=== PATIENT | male | born 1970 | race Caucasian/White ===

== ENCOUNTER 2022-08-10 07:59 | Inpatient (IN) ==
[2022-08-10] MEDS ORDERED: STAT IV Infusion **Titration per Protocol STA ×2 (08:14→09:21)
[2022-08-10] MEDS ORDERED: SODIUM CHLORIDE 0.9% 1000ML 1,000 ML IV ONE (08:14)
[2022-08-10] MEDS ORDERED: dilTIAZem HCl 5 MG/ML 5 ML VIAL IV STA (08:14)
[2022-08-10] MEDS ORDERED: dilTIAZem HCL 125 MG in DEXTROSE 5% 100 ML IV SCH (08:15)
[2022-08-10] MEDS ORDERED: OPTIRAY 320 500ml IV ONE (08:28)
--- NOTE | 2022-08-10 08:29 | Emergency Department Note ---
Impression & Plan Altered mental status, Unresponsive state, Leukocytosis, Atrial fibrillation with rapid ventricular response ED Provider Note NAME: SEAN [id number] APRIL AGE: 52 SEX: M : 1970 ARRIVES VIA: Ambulance INFORMANT: [EMS, guards, nursing] ED PROVIDER(S): [Rufino Dong MD] CHIEF COMPLAINT: Unresponsive HISTORY OF PRESENT ILLNESS: Patient is a 52-year-old male who was found unresponsive in his cell at the local [facility]. By report, he went to bed last evening without difficulty. He has a history of bipolar disease and COPD. As per EMS, the patient had a lower blood pressure on their assessment, he had minimal response to pain or stimulation. No trauma reported. A stroke alert was not called as the patient was found this way this morning--no true last known well could be identified. PMHx/PSHx: See Below SOCIAL HISTORY: See Below. PHYSICAL EXAM: GENERAL: Patient is in moderate distress, upper extremity tremor noted. HEENT: No acute trauma, normocephalic atraumatic, mucous membranes moist, no nasal congestion. Pupils equal and reactive to light. His gaze is to the left. NECK: No stridor, no adenopathy, trachea is midline. LUNGS: Clear to auscultation bilaterally, no wheeze, no rhonchi, breath sounds equal. HEART: Tachycardic and irregular, no obvious murmur. ABDOMEN: Soft, nontender, bowel sounds positive, no peritonitis. EXTREMITIES: No cyanosis or edema, full range of motion of all the joints without pain or difficulty, no signs for acute trauma. NEUROLOGIC: Gazes to the left. There is some upper extremity tremor noted. Arms are flexed at the elbows. Does not respond to voice. When the upper extremity flexion and shaking ceased, he seemed to show some decorticate posturing to sternal rub. SKIN: No rash, no jaundice, no diaphoresis. DIFFERENTIAL DIAGNOSIS: Stroke, intracranial bleeding, seizure, infection, dysrhythmia, renal or liver failure, drug abuse, among others. EMERGENCY DEPARTMENT COURSE/PROCEDURES: Prior/Outside records reviewed: [facility] notes. ECG per my interpretation: Indication was unresponsive episode. The ECG shows a rapid atrial fibrillation with a rate of 143. There is some subtle ST depression in the anterior and lateral leads. There is no ST elevation. No PVCs. The QTc is 527. Repeat ECG per my interpretation: Indication was tachycardia. The ECG shows a normal sinus rhythm with a rate of 94. There is some nonspecific ST change. There is no ST elevation. No PVCs. The QTc is 452. Compared to the earlier ECG, the rate has decreased, A-fib is no longer present. Continuous Cardiac Monitoring per my interpretation: An order was placed for continuous cardiac monitoring. The monitor shows a rate of 152 with atrial fibrillation. Critical Care Note: I have personally spent 65 minutes of critical care time in the direct management of this patient. This includes bedside care, interpretation of diagnostic studies, and testing, discussion with consultants, patient, and family members, and other required patient management activities. This 65 minutes is in excess of all separately billable procedures. Intubation: This procedure was performed by mt. Patient received 20 mg of etomidate IV, 80 mg of rocuronium IV. The patient was hyper oxygenated. Using rapid technique, the patient was intubated with a Escamilla two blade. Some suction was required. No complication. The endotracheal tube was placed at 24 centimeters at the the lips. Good O2 saturation noted afterwards. Good CO2 color change. Breath sounds equal bilaterally. Post intubation chest x-ray demonstrated the tube to be slightly high. It was advanced 1 cm to 25 cm. Central Line placement: This procedure was performed at mt. The area for the procedure was cleansed sterilely and prepared for the procedure. Lidocaine was used for anesthesia. Sterile technique was employed. Using the Seldinger technique, I was able to cannulate the femoral vein. No significant complications. The right femoral artery was punctured during this procedure but pressure was held and no excessive bleeding or hematoma noted afterwards. All ports did flush well. The line was then sutured into position. MEDICAL DECISION MAKING: There is a mild leukocytosis, this could be consistent with infection or the stress of his current situation. There was a normal hemoglobin and platelet count. No coagulopathy. ABG showed a mild respiratory acidosis with a pH of 7.3. This ABG was done after intubation. No renal failure or significant electrolyte abnormality. Lactic acid level was not not elevated making severe sepsis less likely. No concerning liver enzyme elevation. Procalcitonin level was not not elevated making serious bacterial infection less likely. The patient appeared to be in a euthyroid state. ECG initially showed a rapid atrial fibrillation, repeat ECG showed a normal sinus rhythm. Cardiac enzyme testing x1 is not suggestive of acute cardiac injury. Prolactin level was elevated consistent with potential seizure activity. Urinalysis did not show infection. COVID test returned negative. C[place] level was not toxic. Chest film did not show pneumonia or CHF per my review. The endotracheal tube was slightly high within the trachea. The endotracheal tube was advanced to [address] showed no acute bleed or mass effect. CT angio of the head and neck did not show any stenosis or clot. On my initial exam, the patient had some flexion of his upper extremities and some upper extremity shaking with a left-sided gaze. His presentation was consistent with potential seizure activity. The patient received a total of 4 g of IV Keppra. He was given a liter of IV saline. He received IV ceftriaxone as empiric antibiotic coverage. He was placed on a diltiazem drip for his rapid atrial fibrillation. This drip was discontinued when he converted to a sinus rhythm. Patient was eventually placed on a propofol drip to help with sedation. As noted above, the patient did require intubation. This was performed without difficulty. A right femoral central line was placed. All 3 ports flushed well. I did speak with the ICU attending, Dr. Delgadillo. We discussed the case. The patient was accepted to the ICU. I did speak with Dr. Allan of neurology. The patient is able to stay at our facility. Transfer to tertiary care is not currently necessary. I spoke with case management, I did speak with the on-call hospitalist. At this point, the cause for the patient's sudden decline and altered mental state is not completely clear. I am concerned about potential seizure activity. Further work-up/care within the hospital is required. DISPOSITION: Patient's presentation and findings warrant a hospital stay. Past Med/Surg History Medical History Bipolar 1 disorder COPD (chronic obstructive pulmonary disease) Social History Smoking Status: Unknown if ever smoked Allergies Allergies Allergy/AdvReac Type Severity Reaction Status Date / Time No Known Allergies Allergy Unverified 08/10/22 16:35 Home Meds Home Medications Medication Instructions Recorded Confirmed Wixela Inhub 1 puff inhalation BID 08/10/22 08/10/22 albuterol 90 mcg/actuation aerosol 2 mcg inhalation Q4H PRN Wheezing 08/10/22 08/10/22 inhaler buspirone 10 mg PO BID 08/10/22 08/10/22 lithium carbonate 450 mg PO BID 08/10/22 08/10/22 risperidone 4 mg PO HS 08/10/22 08/10/22 Results & Data (ED) Vital Signs Vital Signs - 24 hr 08/10/22 08:10 08/10/22 07:51 08/10/22 08:48 Pulse Rate 130 H 142 H 115 H Pulse Rate from SpO2 Sensor Pulse Rhythm Irregular Pulse Strength Normal Respiratory Rate 22 Respiratory Effort / Characteristics Gasping/Agonal Blood Pressure 125/89 Blood Pressure Mean 101 Blood Pressure Position Lying Pulse Oximetry 96 Oxygen Delivery Method Nasal Cannula Oxygen Flow Rate 4 Fraction of Inspired Oxygen Sepsis Recent Fever Within 48 Hours No Sepsis New/Unexplained Change in Mental Status N/A Sepsis Action Taken by Nursing No Action Required End-Tidal CO2 08/10/22 08:10 08/10/22 09:36 08/10/22 08:15 Pulse Rate 141 H 170 H Pulse Rate from SpO2 Sensor Pulse Rhythm Pulse Strength Respiratory Rate 18 18 Respiratory Effort / Characteristics Blood Pressure 137/100 Blood Pressure Mean 112 Blood Pressure Position Pulse Oximetry 96 91 90 Oxygen Delivery Method Mechanical Vent Oxygen Flow Rate Fraction of Inspired Oxygen 50 Sepsis Recent Fever Within 48 Hours Sepsis New/Unexplained Change in Mental Status Sepsis Action Taken by Nursing End-Tidal CO2 43 08/10/22 08:45 08/10/22 09:10 08/10/22 09:15 Pulse Rate 117 H 111 H 113 H Pulse Rate from SpO2 Sensor 114 H 112 H 113 H Pulse Rhythm Pulse Strength Respiratory Rate 18 20 21 Respiratory Effort / Characteristics Blood Pressure 151/83 H 150/102 H 151/95 H Blood Pressure Mean 105 118 113 Blood Pressure Position Pulse Oximetry 90 95 96 Oxygen Delivery Method Oxygen Flow Rate Fraction of Inspired Oxygen Sepsis Recent Fever Within 48 Hours Sepsis New/Unexplained Change in Mental Status Sepsis Action Taken by Nursing End-Tidal CO2 43 13 46 08/10/22 09:30 08/10/22 09:45 08/10/22 10:00 Pulse Rate 103 H 96 H 93 H Pulse Rate from SpO2 Sensor 107 H 93 H 94 H Pulse Rhythm Pulse Strength Respiratory Rate 26 H 22 23 Respiratory Effort / Characteristics Blood Pressure 117/74 110/78 113/74 Blood Pressure Mean 88 88 87 Blood Pressure Position Pulse Oximetry 91 97 96 Oxygen Delivery Method Oxygen Flow Rate Fraction of Inspired Oxygen Sepsis Recent Fever Within 48 Hours Sepsis New/Unexplained Change in Mental Status Sepsis Action Taken by Nursing End-Tidal CO2 33 34 33 08/10/22 10:15 08/10/22 10:30 08/10/22 10:40 Pulse Rate 93 H 88 85 Pulse Rate from SpO2 Sensor 94 H 88 86 Pulse Rhythm Pulse Strength Respiratory Rate 19 25 H 25 H Respiratory Effort / Characteristics Blood Pressure 105/70 107/69 100/67 Blood Pressure Mean 81 81 78 Blood Pressure Position Pulse Oximetry 97 98 98 Oxygen Delivery Method Oxygen Flow Rate Fraction of Inspired Oxygen Sepsis Recent Fever Within 48 Hours Sepsis New/Unexplained Change in Mental Status Sepsis Action Taken by Nursing End-Tidal CO2 33 32 34 Home Medications Current Medication List: was personally reviewed by me Laboratory Data Attestation: I reviewed the patient's lab results. 08/10/22 09:16 08/10/22 09:16 Lab Results 08/10/22 08/10/22 08/10/22 Range/Units 09:00 09:00 09:00 WBC (4.8-10.8) K/ul RBC (4.70-6.10) M/uL Hgb (14.0-18.0) g/dl POC Hgb (14.0-18.0) g/dl Hct (42.0-52.0) % POC Hct (42-52) % MCV (80.0-100.0) fL MCH (25.0-34.0) pg MCHC (32.0-36.0) g/dL RDW Std Deviation (36.4-46.3) fL RDW Coeff of Franco (11.5-14.5) % Plt Count (130-400) K/uL MPV (9.4-12.4) fL Immature Gran % (Auto) % Neut % (Auto) % Lymph % (Auto) % Cedar % (Auto) % Eos % (Auto) % Baso % (Auto) % Neut # (Auto) (1.40-6.50) K/uL Lymph # (Auto) (1.2-3.4) K/uL Cedar # (Auto) (0.11-0.59) K/uL Eos # (Auto) (0-0.50) K/uL Baso # (Auto) (0-0.2) K/uL Immature Gran # (Auto) (0.01-0.20) K/uL ESR (0-20) mm/hr PT (9.0-12.0) Seconds INR (0.9-1.1) APTT (21.0-31.0) Seconds PTT Ratio POC pH (7.35-7.45) POC pCO2 (35-46) mmHg POC pO2 (80-95) mmHg POC HCO3 (19-24) galilea/L POC Total CO2 (24-31) mmol/L POC Base Excess (-9-1.8) galilea/L POC ABG O2 Sat (90-95) % POC Sodium (135-144) mmol/L Sodium (136-145) mmol/L POC Potassium (3.3-5.0) mmol/L Potassium (3.5-5.1) mmol/L Chloride (98-107) mmol/L Carbon Dioxide (21-32) mmol/L Anion Gap (3-11) BUN (6-23) mg/dl Creatinine (0.6-1.4) mg/dl Est Cr Clr Drug Dosing ml/min Est GFR ( Amer) ml/min Est GFR (Non-Af Amer) ml/min BUN/Creatinine Ratio (10-20) Glucose (70-99(Fasting)) mg/dl Lactate (0.4-2.0) mmol/L Calcium (8.6-10.3) mg/dl Magnesium (1.7-2.4) mg/dl Total Bilirubin (0.2-1.0) mg/dl AST (13-39) U/L ALT (7-52) U/L Alkaline Phosphatase (34-104) U/L Troponin I High Sens (0-20) pg/ml C-Reactive Protein (0-0.5) mg/dl Total Protein (6.0-8.3) gm/dl Albumin (3.4-5.0) gm/dl Globulin (2.5-4.0) gm/dl Albumin/Globulin Ratio (0.9-2) Procalcitonin (0-0.5) ng/ml TSH (0.300-4.500) uIu/ml Prolactin ng/ml Urine Color Yellow Urine Appearance Clear (Clear) Urine pH 6.5 (4.5-7.5) Ur Specific Crawley 1.009 (1.000-1.030) Urine Protein Negative (Negative) Urine Glucose (UA) Negative (Negative) Urine Ketones Negative (Negative) Urine Blood Negative (Negative) Urine Nitrite Negative (Negative) Urine Bilirubin Negative (Negative) Urine Urobilinogen Negative (Negative) Ur Leukocyte Esterase Negative (Negative) Urine Opiates Screen Neg (Neg) Ur Methadone, Qual Neg (Neg) Urine Barbiturates Neg (Neg) Ur Phencyclidine (PCP) Neg (Neg) U Amphetamin/Meth Scrn Neg (Neg) MDMA (Ecstasy) Screen Neg (Neg) U Benzodiazepines Scrn Neg (Neg) [place] (0.6-1.2) mmol/L Ur Cocaine Metabolite Neg (Neg) U Marijuana (THC) Screen Neg (Neg) SARS-CoV-2, RNA, NAAT NEGATIVE (NEGATIVE) Blood Type Antibody Screen 08/10/22 08/10/22 08/10/22 Range/Units 09:14 09:16 09:16 WBC 14.50 H (4.8-10.8) K/ul RBC 4.24 L (4.70-6.10) M/uL Hgb 14.1 (14.0-18.0) g/dl POC Hgb 13.3 L (14.0-18.0) g/dl Hct 39.3 L (42.0-52.0) % POC Hct 39 L (42-52) % MCV 92.7 (80.0-100.0) fL MCH 33.3 (25.0-34.0) pg MCHC 35.9 (32.0-36.0) g/dL RDW Std Deviation 40.5 (36.4-46.3) fL RDW Coeff of Franco 11.9 (11.5-14.5) % Plt Count 239 (130-400) K/uL MPV 8.0 L (9.4-12.4) fL Immature Gran % (Auto) 0.3 % Neut % (Auto) 89.0 % Lymph % (Auto) 4.2 % Cedar % (Auto) 6.3 % Eos % (Auto) 0.0 % Baso % (Auto) 0.2 % Neut # (Auto) 12.90 H (1.40-6.50) K/uL Lymph # (Auto) 0.61 L (1.2-3.4) K/uL Cedar # (Auto) 0.91 H (0.11-0.59) K/uL Eos # (Auto) 0.00 (0-0.50) K/uL Baso # (Auto) 0.03 (0-0.2) K/uL Immature Gran # (Auto) 0.05 (0.01-0.20) K/uL ESR (0-20) mm/hr PT (9.0-12.0) Seconds INR (0.9-1.1) APTT (21.0-31.0) Seconds PTT Ratio POC pH 7.30 L (7.35-7.45) POC pCO2 49 H (35-46) mmHg POC pO2 77 L (80-95) mmHg POC HCO3 24 (19-24) galilea/L POC Total CO2 25 (24-31) mmol/L POC Base Excess -2.0 (-9-1.8) galilea/L POC ABG O2 Sat 94.0 (90-95) % POC Sodium 138 (135-144) mmol/L Sodium (136-145) mmol/L POC Potassium 3.9 (3.3-5.0) mmol/L Potassium (3.5-5.1) mmol/L Chloride (98-107) mmol/L Carbon Dioxide (21-32) mmol/L Anion Gap (3-11) BUN (6-23) mg/dl Creatinine (0.6-1.4) mg/dl Est Cr Clr Drug Dosing ml/min Est GFR ( Amer) ml/min Est GFR (Non-Af Amer) ml/min BUN/Creatinine Ratio (10-20) Glucose (70-99(Fasting)) mg/dl Lactate (0.4-2.0) mmol/L Calcium (8.6-10.3) mg/dl Magnesium (1.7-2.4) mg/dl Total Bilirubin (0.2-1.0) mg/dl AST (13-39) U/L ALT (7-52) U/L Alkaline Phosphatase (34-104) U/L Troponin I High Sens (0-20) pg/ml C-Reactive Protein (0-0.5) mg/dl Total Protein (6.0-8.3) gm/dl Albumin (3.4-5.0) gm/dl Globulin (2.5-4.0) gm/dl Albumin/Globulin Ratio (0.9-2) Procalcitonin (0-0.5) ng/ml TSH (0.300-4.500) uIu/ml Prolactin ng/ml Urine Color Urine Appearance (Clear) Urine pH (4.5-7.5) Ur Specific Crawley (1.000-1.030) Urine Protein (Negative) Urine Glucose (UA) (Negative) Urine Ketones (Negative) Urine Blood (Negative) Urine Nitrite (Negative) Urine Bilirubin (Negative) Urine Urobilinogen (Negative) Ur Leukocyte Esterase (Negative) Urine Opiates Screen (Neg) Ur Methadone, Qual (Neg) Urine Barbiturates (Neg) Ur Phencyclidine (PCP) (Neg) U Amphetamin/Meth Scrn (Neg) MDMA (Ecstasy) Screen (Neg) U Benzodiazepines Scrn (Neg) [place] (0.6-1.2) mmol/L Ur Cocaine Metabolite (Neg) U Marijuana (THC) Screen (Neg) SARS-CoV-2, RNA, NAAT (NEGATIVE) Blood Type B Positive Antibody Screen NEGATIVE 08/10/22 08/10/22 08/10/22 Range/Units 09:16 09:16 09:16 WBC (4.8-10.8) K/ul RBC (4.70-6.10) M/uL Hgb (14.0-18.0) g/dl POC Hgb (14.0-18.0) g/dl Hct (42.0-52.0) % POC Hct (42-52) % MCV (80.0-100.0) fL MCH (25.0-34.0) pg MCHC (32.0-36.0) g/dL RDW Std Deviation (36.4-46.3) fL RDW Coeff of Franco (11.5-14.5) % Plt Count (130-400) K/uL MPV (9.4-12.4) fL Immature Gran % (Auto) % Neut % (Auto) % Lymph % (Auto) % Cedar % (Auto) % Eos % (Auto) % Baso % (Auto) % Neut # (Auto) (1.40-6.50) K/uL Lymph # (Auto) (1.2-3.4) K/uL Cedar # (Auto) (0.11-0.59) K/uL Eos # (Auto) (0-0.50) K/uL Baso # (Auto) (0-0.2) K/uL Immature Gran # (Auto) (0.01-0.20) K/uL ESR (0-20) mm/hr PT 11.6 (9.0-12.0) Seconds INR 1.1 (0.9-1.1) APTT 25.3 (21.0-31.0) Seconds PTT Ratio 0.9 POC pH (7.35-7.45) POC pCO2 (35-46) mmHg POC pO2 (80-95) mmHg POC HCO3 (19-24) galilea/L POC Total CO2 (24-31) mmol/L POC Base Excess (-9-1.8) galilea/L POC ABG O2 Sat (90-95) % POC Sodium (135-144) mmol/L Sodium 137 (136-145) mmol/L POC Potassium (3.3-5.0) mmol/L Potassium 4.0 (3.5-5.1) mmol/L Chloride 108 H (98-107) mmol/L Carbon Dioxide 22 (21-32) mmol/L Anion Gap 7 (3-11) BUN 12 (6-23) mg/dl Creatinine 0.73 (0.6-1.4) mg/dl Est Cr Clr Drug Dosing 114.5 ml/min Est GFR ( Amer) 123.6 ml/min Est GFR (Non-Af Amer) 106.6 ml/min BUN/Creatinine Ratio 16.4 (10-20) Glucose 153 H (70-99(Fasting)) mg/dl Lactate (0.4-2.0) mmol/L Calcium 8.1 L (8.6-10.3) mg/dl Magnesium 1.8 (1.7-2.4) mg/dl Total Bilirubin 1.0 (0.2-1.0) mg/dl AST 15 (13-39) U/L ALT 12 (7-52) U/L Alkaline Phosphatase 79 (34-104) U/L Troponin I High Sens < 2.3 (0-20) pg/ml C-Reactive Protein 1.06 H (0-0.5) mg/dl Total Protein 6.6 (6.0-8.3) gm/dl Albumin 3.9 (3.4-5.0) gm/dl Globulin 2.7 (2.5-4.0) gm/dl Albumin/Globulin Ratio 1.4 (0.9-2) Procalcitonin (0-0.5) ng/ml TSH (0.300-4.500) uIu/ml Prolactin 30.04 ng/ml Urine Color Urine Appearance (Clear) Urine pH (4.5-7.5) Ur Specific Crawley (1.000-1.030) Urine Protein (Negative) Urine Glucose (UA) (Negative) Urine Ketones (Negative) Urine Blood (Negative) Urine Nitrite (Negative) Urine Bilirubin (Negative) Urine Urobilinogen (Negative) Ur Leukocyte Esterase (Negative) Urine Opiates Screen (Neg) Ur Methadone, Qual (Neg) Urine Barbiturates (Neg) Ur Phencyclidine (PCP) (Neg) U Amphetamin/Meth Scrn (Neg) MDMA (Ecstasy) Screen (Neg) U Benzodiazepines Scrn (Neg) [place] (0.6-1.2) mmol/L Ur Cocaine Metabolite (Neg) U Marijuana (THC) Screen (Neg) SARS-CoV-2, RNA, NAAT (NEGATIVE) Blood Type Antibody Screen 08/10/22 08/10/22 08/10/22 Range/Units 09:16 09:16 09:16 WBC (4.8-10.8) K/ul RBC (4.70-6.10) M/uL Hgb (14.0-18.0) g/dl POC Hgb (14.0-18.0) g/dl Hct (42.0-52.0) % POC Hct (42-52) % MCV (80.0-100.0) fL MCH (25.0-34.0) pg MCHC (32.0-36.0) g/dL RDW Std Deviation (36.4-46.3) fL RDW Coeff of Franco (11.5-14.5) % Plt Count (130-400) K/uL MPV (9.4-12.4) fL Immature Gran % (Auto) % Neut % (Auto) % Lymph % (Auto) % Cedar % (Auto) % Eos % (Auto) % Baso % (Auto) % Neut # (Auto) (1.40-6.50) K/uL Lymph # (Auto) (1.2-3.4) K/uL Cedar # (Auto) (0.11-0.59) K/uL Eos # (Auto) (0-0.50) K/uL Baso # (Auto) (0-0.2) K/uL Immature Gran # (Auto) (0.01-0.20) K/uL ESR 12 (0-20) mm/hr PT (9.0-12.0) Seconds INR (0.9-1.1) APTT (21.0-31.0) Seconds PTT Ratio POC pH (7.35-7.45) POC pCO2 (35-46) mmHg POC pO2 (80-95) mmHg POC HCO3 (19-24) galilea/L POC Total CO2 (24-31) mmol/L POC Base Excess (-9-1.8) galilea/L POC ABG O2 Sat (90-95) % POC Sodium (135-144) mmol/L Sodium (136-145) mmol/L POC Potassium (3.3-5.0) mmol/L Potassium (3.5-5.1) mmol/L Chloride (98-107) mmol/L Carbon Dioxide (21-32) mmol/L Anion Gap (3-11) BUN (6-23) mg/dl Creatinine (0.6-1.4) mg/dl Est Cr Clr Drug Dosing ml/min Est GFR ( Amer) ml/min Est GFR (Non-Af Amer) ml/min BUN/Creatinine Ratio (10-20) Glucose (70-99(Fasting)) mg/dl Lactate (0.4-2.0) mmol/L Calcium (8.6-10.3) mg/dl Magnesium (1.7-2.4) mg/dl Total Bilirubin (0.2-1.0) mg/dl AST (13-39) U/L ALT (7-52) U/L Alkaline Phosphatase (34-104) U/L Troponin I High Sens (0-20) pg/ml C-Reactive Protein (0-0.5) mg/dl Total Protein (6.0-8.3) gm/dl Albumin (3.4-5.0) gm/dl Globulin (2.5-4.0) gm/dl Albumin/Globulin Ratio (0.9-2) Procalcitonin < 0.05 (0-0.5) ng/ml TSH 1.096 (0.300-4.500) uIu/ml Prolactin ng/ml Urine Color Urine Appearance (Clear) Urine pH (4.5-7.5) Ur Specific Crawley (1.000-1.030) Urine Protein (Negative) Urine Glucose (UA) (Negative) Urine Ketones (Negative) Urine Blood (Negative) Urine Nitrite (Negative) Urine Bilirubin (Negative) Urine Urobilinogen (Negative) Ur Leukocyte Esterase (Negative) Urine Opiates Screen (Neg) Ur Methadone, Qual (Neg) Urine Barbiturates (Neg) Ur Phencyclidine (PCP) (Neg) U Amphetamin/Meth Scrn (Neg) MDMA (Ecstasy) Screen (Neg) U Benzodiazepines Scrn (Neg) [place] (0.6-1.2) mmol/L Ur Cocaine Metabolite (Neg) U Marijuana (THC) Screen (Neg) SARS-CoV-2, RNA, NAAT (NEGATIVE) Blood Type Antibody Screen 08/10/22 08/10/22 Range/Units 09:17 09:43 WBC (4.8-10.8) K/ul RBC (4.70-6.10) M/uL Hgb (14.0-18.0) g/dl POC Hgb (14.0-18.0) g/dl Hct (42.0-52.0) % POC Hct (42-52) % MCV (80.0-100.0) fL MCH (25.0-34.0) pg MCHC (32.0-36.0) g/dL RDW Std Deviation (36.4-46.3) fL RDW Coeff of Franco (11.5-14.5) % Plt Count (130-400) K/uL MPV (9.4-12.4) fL Immature Gran % (Auto) % Neut % (Auto) % Lymph % (Auto) % Cedar % (Auto) % Eos % (Auto) % Baso % (Auto) % Neut # (Auto) (1.40-6.50) K/uL Lymph # (Auto) (1.2-3.4) K/uL Cedar # (Auto) (0.11-0.59) K/uL Eos # (Auto) (0-0.50) K/uL Baso # (Auto) (0-0.2) K/uL Immature Gran # (Auto) (0.01-0.20) K/uL ESR (0-20) mm/hr PT (9.0-12.0) Seconds INR (0.9-1.1) APTT (21.0-31.0) Seconds PTT Ratio POC pH (7.35-7.45) POC pCO2 (35-46) mmHg POC pO2 (80-95) mmHg POC HCO3 (19-24) galilea/L POC Total CO2 (24-31) mmol/L POC Base Excess (-9-1.8) galilea/L POC ABG O2 Sat (90-95) % POC Sodium (135-144) mmol/L Sodium (136-145) mmol/L POC Potassium (3.3-5.0) mmol/L Potassium (3.5-5.1) mmol/L Chloride (98-107) mmol/L Carbon Dioxide (21-32) mmol/L Anion Gap (3-11) BUN (6-23) mg/dl Creatinine (0.6-1.4) mg/dl Est Cr Clr Drug Dosing ml/min Est GFR ( Amer) ml/min Est GFR (Non-Af Amer) ml/min BUN/Creatinine Ratio (10-20) Glucose (70-99(Fasting)) mg/dl Lactate 1.2 (0.4-2.0) mmol/L Calcium (8.6-10.3) mg/dl Magnesium (1.7-2.4) mg/dl Total Bilirubin (0.2-1.0) mg/dl AST (13-39) U/L ALT (7-52) U/L Alkaline Phosphatase (34-104) U/L Troponin I High Sens (0-20) pg/ml C-Reactive Protein (0-0.5) mg/dl Total Protein (6.0-8.3) gm/dl Albumin (3.4-5.0) gm/dl Globulin (2.5-4.0) gm/dl Albumin/Globulin Ratio (0.9-2) Procalcitonin (0-0.5) ng/ml TSH (0.300-4.500) uIu/ml Prolactin ng/ml Urine Color Urine Appearance (Clear) Urine pH (4.5-7.5) Ur Specific Crawley (1.000-1.030) Urine Protein (Negative) Urine Glucose (UA) (Negative) Urine Ketones (Negative) Urine Blood (Negative) Urine Nitrite (Negative) Urine Bilirubin (Negative) Urine Urobilinogen (Negative) Ur Leukocyte Esterase (Negative) Urine Opiates Screen (Neg) Ur Methadone, Qual (Neg) Urine Barbiturates (Neg) Ur Phencyclidine (PCP) (Neg) U Amphetamin/Meth Scrn (Neg) MDMA (Ecstasy) Screen (Neg) U Benzodiazepines Scrn (Neg) [place] 0.4 L (0.6-1.2) mmol/L Ur Cocaine Metabolite (Neg) U Marijuana (THC) Screen (Neg) SARS-CoV-2, RNA, NAAT (NEGATIVE) Blood Type Antibody Screen Administered Medications Propofol (Diprivan) 1,000 mg in 100 mls @ 10.428 mls/hr IV .[id number] [facility]; Protocol Stop: 08/13/22 09:29 Last Admin: 08/10/22 16:32 Dose: 20 mcg/kg/min, 10.4 mls/hr Documented By: NONI Co-signed By: [id number] Titration: 08/10/22 16:32 Dose: 20 mcg/kg/min, 10.4 mls/hr Documented By: NONI Co-signed By: [id number] Titration: 08/10/22 14:49 Dose: 20 mcg/kg/min, 10.4 mls/hr Documented By: [id number] Titration: 08/10/22 10:09 Dose: 25 mcg/kg/min, 13 mls/hr Documented By: Admin: 08/10/22 09:29 Dose: 20 mcg/kg/min, 10.4 mls/hr Documented By: JACQUELIN Co-signed By: FELTON Discontinued Medications Diltiazem HCl (Diltiazem Hcl 5 Mg/Ml 5 Ml Vial) 10 mg IV NOW STA Stop: 08/10/22 08:15 Last Admin: 08/10/22 09:29 Dose: Not Given Documented By: JACQUELIN Levetiracetam 2,000 mg/ Sodium (Chloride) 270 mls @ 999 mls/hr IV NOW STA Stop: 08/10/22 08:30 Last Infusion: 08/10/22 09:31 Dose: 0 mls/hr Documented By: Admin: 08/10/22 09:07 Dose: 999 mls/hr Documented By: FELTON Sodium Chloride (Nss 1000ml) 1,000 mls @ 999 mls/hr IV .Q1H1M ONE Stop: 08/10/22 09:14 Last Infusion: 08/10/22 11:20 Dose: 0 mls/hr Documented By: Admin: 08/10/22 09:31 Dose: 999 mls/hr Documented By: JACQUELIN Diltiazem HCl 125 mg/ Dextrose 125 mls @ 5 mls/hr IV .Q24H NIMISHA; Protocol Stop: 09/09/22 08:14 Last Titration: 08/10/22 10:30 Dose: 0 mg/hr, 0 mls/hr Documented By: JACQUELIN Co-signed By: KANG Admin: 08/10/22 09:07 Dose: 5 mg/hr, 5 mls/hr Documented By: FELTON Co-signed By: JACQUELIN Levetiracetam 2,000 mg/ Sodium (Chloride) 270 mls @ 999 mls/hr IV NOW STA Stop: 08/10/22 10:01 Last Infusion: 08/10/22 11:20 Dose: 0 mls/hr Documented By: Admin: 08/10/22 10:28 Dose: 999 mls/hr Documented By: JACQUELIN Ceftriaxone Sodium (Rocephin) 2,000 mg in 70 mls @ 140 mls/hr IV NOW STA Stop: 08/10/22 10:17 Last Infusion: 08/10/22 13:31 Dose: 0 mls/hr Documented By: [id number] Admin: 08/10/22 11:18 Dose: 140 mls/hr Documented By: JACQUELIN Ioversol (Optiray 320 500ml) 120 ml IV ONCE ONE Stop: 08/10/22 08:29 Last Admin: 08/10/22 08:28 Dose: 120 ml Documented By: ISIDORO Miscellaneous (Stat Iv Infusion Titration Per Protocol) 1 each N/A NOW STA Stop: 08/10/22 08:15 Last Admin: 08/10/22 13:31 Dose: Not Given Documented By: [id number] Miscellaneous (Icu Protocol For Hyperglycemia) 1 each N/A ACHS NIMISHA Stop: 08/12/22 12:13 Last Admin: 08/10/22 14:51 Dose: Not Given Documented By: [id number] Propofol (Propofol Iv Emulsion 10 Mg/Ml 100 Ml Vial) Confirm Administered Dose 1 ,000 mg IV .STK-MED ONE Stop: 08/10/22 09:16 Last Admin: 08/10/22 09:31 Dose: Not Given Documented By: JACQUELIN Propofol (Propofol Bolus From Bag) 50 mg IV ONE ONE Stop: 08/10/22 09:31 Last Admin: 08/10/22 09:30 Dose: 50 mg Documented By: JACQUELIN Co-signed By: FELTON Imaging Data Radiologist's Impression: Head CT 08/10/22 07:55 CT angio head w con, CT head/brain wo con, CT angio neck with con CLINICAL HISTORY: neuro deficit, acute stroke suspected TECHNIQUE: Contiguous axial CT images of the head were acquired from the base of the skull to the vertex without intravenous contrast administration. CT angiography of the head and neck was performed following intravenous administration of iodinated contrast. Coronal and sagittal MIPS were obtained from the axial data set and were submitted for review. Automated dose lowering techniques and/or adjustment according to patient size were utilized for this examination. All measurements were calculated based on NASCET criteria. CT DOSE: 1161.11 mGy.cm Comparison: None available at the time of this dictation. FINDINGS: CT head: There is no acute intracranial hemorrhage or evidence of acute territorial infarction. No shift of the midline structures, mass effect, or extra-axial abnormalities are shown. Extensive emphysema is seen. CTA Neck: A 3 vessel aortic arch is shown. There is no significant ath erosclerotic plaque in the aortic arch or the origins of the innominate, left common carotid, and left subclavian arteries. The common carotid, external carotid, cervical segments of the internal carotid arteries, and the cervical segments of the vertebral arteries are patent without hemodynamically significant stenosis. The left vertebral artery is dominant. CTA Head: The anterior and posterior cerebral circulations are patent. origin of the right posterior cerebral artery is seen. IMPRESSION: 1. No acute intracranial hemorrhage, evidence of acute territorial infarction, or other acute intracranial disease process. 2. No occlusion, hemodynamically significant stenosis, or dissection in the major cervical arteries. 3. No occlusion, hemodynamically significant stenosis, aneurysm, dissection, or arteriovenous malformation in the major intracranial arteries. Assessment of stenosis of the internal carotid arteries is based on NASCET criteria. ACT 112: Negative or not required by law. Electronically signed by: Jarred Bob M.D. 08/10/2022 8:51 AM Head CTA 08/10/22 07:55 CT angio head w con, CT head/brain wo con, CT angio neck with con CLINICAL HISTORY: neuro deficit, acute stroke suspected TECHNIQUE: Contiguous axial CT images of the head were acquired from the base of the skull to the vertex without intravenous contrast administration. CT angio graphy of the head and neck was performed following intravenous administration of iodinated contrast. Coronal and sagittal MIPS were obtained from the axial data set and were submitted for review. Automated dose lowering techniques and/or adjustment according to patient size were utilized for this examination. All measurements were calculated based on NASCET criteria. CT DOSE: 1161.11 mGy.cm Comparison: None available at the time of this dictation. FINDINGS: CT head: There is no acute intracranial hemorrhage or evidence of acute territorial infarction. No shift of the midline structures, mass effect, or extra-axial abnormalities are shown. Extensive emphysema is seen. CTA Neck: A 3 vessel aortic arch is shown. There is no significant atherosclerotic plaque in the aortic arch or the origins of the innominate, left common carotid, and left subclavian arteries. The common carotid, external carotid, cervical segments of the internal carotid arteries, and the cervical segments of the vertebral arteries are patent without hemodynamically significant stenosis. The left vertebral artery is dominant. CTA Head: The anterior and posterior cerebral circulations are patent. origin of the right posterior cerebral artery is seen. IMPRESSION: 1. No acute intracranial hemorrhage, evidence of acute territorial infarction, or other acute intracranial disease process. 2. No occlusion, hemodynamically significant stenosis, or dissection in the major cervical arteries. 3. No occlusion, hemodynamically significant stenosis, aneurysm, dissection, or arteriovenous malformation in the major intracranial arteries. Assessment of stenosis of the internal carotid arteries is based on NASCET criteria. ACT 112: Negative or not required by law. Electronically signed by: Jarred Bob M.D. 08/10/2022 8:51 AM Neck CTA 08/10/22 07:55 CT angio head w con, CT head/brain wo con, CT angio neck with con CLINICAL HISTORY: neuro deficit, acute stroke suspected TECHNIQUE: Contiguous axial CT images of the head were acquired from the base of the skull to the vertex without intravenous contrast administration. CT angiography of the head and neck was performed following intravenous administration of iodinated contrast. Coronal and sagittal MIPS were obtained from the axial data set and were submitted for review. Automated dose lowering techniques and/or adjustment according to patient size were utilized for this examination. All measurements were calculated based on NASCET criteria. CT DOSE: 1161.11 mGy.cm Comparison: None available at the time of this dictation. FINDINGS: CT head: There is no acute intracranial hemorrhage or evidence of acute territorial infarction. No shift of the midline structures, mass effect, or extra-axial abnormalities are shown. Extensive emphysema is seen. CTA Neck: A 3 vessel aortic arch is shown. There is no significant atherosclerotic plaque in the aortic arch or the origins of the innominate, left common carotid, and left subclavian arteries. The common carotid, external carotid, cervical segments of the internal carotid arteries, and the cervical segments of the vertebral arteries are patent without hemodynamically significant stenosis. The left vertebral artery is dominant. CTA Head: The anterior and posterior cerebral circulations are patent. origin of the right posterior cerebral artery is seen. IMPRESSION: 1. No acute intracranial hemorrhage, evidence of acute territorial infarction, or other acute intracranial disease process. 2. No occlusion, hemodynamically significant stenosis, or dissection in the major cervical arteries. 3. No occlusion, hemodynamically significant stenosis, aneurysm, dissection, or arteriovenous malformation in the major intracranial arteries. Assessment of stenosis of the internal carotid arteries is based on NASCET criteria. ACT 112: Negative or not required by law. Electronically signed by: Jarred Bob M.D. 08/10/2022 8:51 AM Chest X-Ray 08/10/22 08:19 XR chest 1V portable CLINICAL HISTORY: post intub TECHNIQUE: Single frontal radiograph of the chest was obtained. Comparison: None available at the time of this dictation. FINDINGS: Endotracheal tube terminates 44 mm of the cordelia. The cardiomediastinal silhouette is normal. The lungs are clear. No evidence of pleural effusion or pneumothorax. IMPRESSION: Satisfactory position of endotracheal tube. ACT 112: Negative or not required by law. Electronically signed by: Jarred Bob M.D. 08/10/2022 8:33 AM Discharge Plan Visit Data Chief Complaint: Unresponsive Stated Complaint: STROKE SX, HYPOTENSION ED Provider: Rufino Dong Discharge Problem: Altered mental status, Unresponsive state, Leukocytosis, Atrial fibrillation with rapid ventricular response Patient Disposition: Admitted As Inpatient Condition: Serious Discharge Instructions Interventions: ED Discharge Assessment Last Done: 08/10/22 11:35
--- NOTE | 2022-08-10 08:34 | XRay Report ---
XR chest 1V portable CLINICAL HISTORY: post intub TECHNIQUE: Single frontal radiograph of the chest was obtained. Comparison: None available at the time of this dictation. FINDINGS: Endotracheal tube terminates 44 mm of the cordelia. The cardiomediastinal silhouette is normal. The opal gs are clear. No evidence of pleural effusion or pneumothorax. IMPRESSION: Satisfactory position of endotracheal tube. ACT 112: Negative or not required by law. Electronically signed by: Jarred Bob M.D. 08/10/2022 8:33 AM
--- NOTE | 2022-08-10 08:53 | CT Scan Report ---
CT angio head w con, CT head/brain wo con, CT angio neck with con CLINICAL HISTORY: neuro deficit, acute stroke suspected TECHNIQUE: Contiguous axial CT images of the head were acquired from the base of the skull to the michael milton without intravenous contrast administration. CT angiography of the head and neck was performed f ollowing intravenous administration of iodinated contrast. Coronal and sagittal MIPS were obtained fr om the axial data set and were submitted for review. Automated dose lowering techniques and/or adjus tment according to patient size were utilized for this examination. All measurements were calculated based on NASCET criteria. CT DOSE: 1161.11 mGy.cm Comparison: None available at the time of this dictation. FINDINGS: CT head: There is no acute intracranial hemorrhage or evidence of acute territorial infarction. No sh ift of the midline structures, mass effect, or extra-axial abnormalities are shown. Extensive emphysema is seen. CTA Neck: A 3 vessel aortic arch is shown. There is no significant atherosclerotic plaque in the aor tic arch or the origins of the innominate, left common carotid, and left subclavian arteries. The co mmon carotid, external carotid, cervical segments of the internal carotid arteries, and the cervical segments of the vertebral arteries are patent without hemodynamically significant stenosis. The left vertebral artery is dominant. CTA Head: The anterior and posterior cerebral circulations are patent. origin of the right pos terior cerebral artery is seen. IMPRESSION: 1. No acute intracranial hemorrhage, evidence of acute territorial infarction, or other acute intrac ranial disease process. 2. No occlusion, hemodynamically significant stenosis, or dissection in the major cervical arteries. 3. No occlusion, hemodynamically significant stenosis, aneurysm, dissection, or arteriovenous malfor mation in the major intracranial arteries. Assessment of stenosis of the internal carotid arteries is based on NASCET criteria. ACT 112: Negative or not required by law. Electronically signed by: Jarred Bob M.D. 08/10/2022 8:51 AM
[2022-08-10] MEDS ORDERED: PROPOFOL IV EMULSION 10 MG/ML 100 ML VIAL IV ONE (09:15)
[2022-08-10 09:29] LABS: iSTAT Arterial Blood Gas HCO3 24 meg/L (19-24); iSTAT Arterial Blood Gas pCO2 49 mmHg (35-46); iSTAT Arterial Blood Gas pO2 77 mmHg (80-95); iSTAT Carbon Dioxide 25 mmol/L (24-31); iSTAT Hematocrit 39 % (42-52); iSTAT Hemoglobin 13.3 g/dl (14.0-18.0); iSTAT Potassium 3.9 mmol/L (3.3-5.0); iSTAT Sodium 138 mmol/L (135-144)
[2022-08-10] MEDS: propofoL 1,000 MG/100 ML VIAL IV SCH ×2 (09:29→16:32)
[2022-08-10] MEDS ORDERED: PROPOFOL BOLUS FROM BAG IV ONE (09:30)
[2022-08-10 09:36] LABS: Basophils # (auto) 0.03 K/uL (0-0.2); Basophils % (auto) 0.2 %; Hematocrit (blood only) 39.3 % (42.0-52.0); Hemoglobin 14.1 g/dl (14.0-18.0); Immature Granulocytes # (auto) 0.05 K/uL (0.01-0.20); Immature Granulocytes % (auto) 0.3 %; Lymphocytes # (auto) 0.61 K/uL (1.2-3.4); Lymphocytes % (auto) 4.2 %; Mean Corpuscular Hemoglobin 33.3 pg (25.0-34.0); Mean Corpuscular Hgb Conc 35.9 g/dL (32.0-36.0); Mean Corpuscular Volume 92.7 fL (80.0-100.0); Monocytes # (auto) 0.91 K/uL (0.11-0.59); Monocytes % (auto) 6.3 %; Platelet Count 239 K/uL (130-400); RDW Coefficient of Variation 11.9 % (11.5-14.5); RDW Standard Deviation 40.5 fL (36.4-46.3); Red Blood Count 4.24 M/uL (4.70-6.10)
[2022-08-10 09:47] LABS: Alanine Aminotransferase 12 U/L (7-52); Albumin Globulin Ratio 1.4 (0.9-2); Albumin Level 3.9 gm/dl (3.4-5.0); Alkaline Phosphatase 79 U/L (34-104); Anion Gap 7 (3-11); Aspartate Aminotransferase 15 U/L (13-39); BUN Creatinine Ratio 16.4 (10-20); Blood Urea Nitrogen 12 mg/dl (6-23); Calcium 8.1 mg/dl (8.6-10.3); Carbon Dioxide 22 mmol/L (21-32); Chloride 108 mmol/L (98-107); Creatinine Clr Calc Pharmacy 114.5 ml/min; Est GFR (African American) 123.6 ml/min; Est GFR (Non-African American) 106.6 ml/min; Globulin 2.7 gm/dl (2.5-4.0); Glucose 153 mg/dl (70-99(Fasting)); Magnesium 1.8 mg/dl (1.7-2.4); Sodium 137 mmol/L (136-145); Total Protein 6.6 gm/dl (6.0-8.3)
[2022-08-10 09:48] LABS: Appearance Urine Clear (Clear); Bilirubin Urine Negative (Negative); Blood Urine Negative (Negative); Color Urine Yellow; Glucose Urine UA Negative (Negative); Ketones Urine Negative (Negative); Leukocyte Esterase Urine Negative (Negative); Nitrite Urine Negative (Negative); Protein Urine Negative (Negative); Specific Gravity Urine 1.009 (1.000-1.030); Urobilinogen Urine Negative (Negative); pH Urine 6.5 (4.5-7.5)
[2022-08-10] MEDS ORDERED: cefTRIAXone SODIUM 2,000 MG/70 ML BAG IV STA (09:48)
[2022-08-10 09:53] LABS: Troponin I High Sensitivity < 2.3 pg/ml (0-20)
[2022-08-10 10:07] LABS: Amphetamines+Metham, Urine Neg (Neg); Barbiturates, Urine Neg (Neg); Benzodiazepine, Urine Neg (Neg); Cocaine, Urine Neg (Neg); MDMA (Ecstacy), Urine Neg (Neg); Methadone, Urine Neg (Neg); Opiate, Urine Neg (Neg); Phencyclidine, Urine Neg (Neg)
[2022-08-10 10:10] LABS: INR 1.1 (0.9-1.1); Partial Thromboplastin Ratio 0.9; Partial Thromboplastin Time 25.3 Seconds (21.0-31.0); Prothrombin Time 11.6 Seconds (9.0-12.0)
--- NOTE | 2022-08-10 10:34 | History & Physical Report ---
Date of Service August 10, 2022 Assessment & Plan (1) Unresponsive state: Plan: -Admit to the ICU -Currently stable on mechanical Vent -Initially hypotensive on arrival with systolic BP in the 80's and in afib RVR with HR in the 140-160's -Differential is broad at this time including possible stroke, seizure, STRIP CLEANER infection, drug overdose, other form of suicide attempt, infection -Seizure-like activity reported by EMS and ED staff on arrival, no previous hx of seizures per transfer documentation from [facility] -Patient with a leukocytosis of 14 with left shift of 12, no obvious source of infection at this time on exam or labs -Patient was noted to be in new onset afib RVR, unsure how long he was in afib for so embolic stroke is higher on the differential -Prolactin elevated in the 30's, seizure is also high on the differential -UA and tox screen negative, blood cultures obtained, patient S/P 1 dose of Ceftriaxone -Neurology consulted and will evaluate, EEG ordered -Will obtain STAT MRI of the brain wo con and TTE for further evaluation -ICU staff will be performing an LP -Will obtain ESR and CRP for further evaluation -Will defer further abx and IV fluids to the ICU staff at this time -BL SCD's for DVT PPX until MRI is obtained, will hold chemical DVT PPX for now -S/P loading dose of Keppra in the ED for possible seizures, will defer to Neurology for further treatment -AM CBC, CMP, Mag, PT/INR (2) On mechanically assisted ventilation: Plan: -Patient intubated in the ED due to unresponsive state and inability to protect his airway -Continue intubation status for now until the rest of his workup is complete (3) Atrial fibrillation with RVR: Plan: -Patient was noted to be in afib RVR with HR in the 140's-160's on arrival and hypotensive with systolic BP in the 80's -Patient was started on a diltiazem drip and subsequently converted back to NSR with HR in the 90's and stable BP -Dilt drip has been discontinued at this time -Does not appear that he has a previous hx -Calcium of 8.1 but otherwise no electrolyte abnormalities -Will obtain STAT TSH with free T4 if indicated -Will defer anticoagulation to the ICU staff at this time -Continue to monitor on tele (4) Bipolar 1 disorder: Plan: -Multiple previous suicide attempts per nursing home paperwork -Currently on Troutman, buspar, and risperdal -Troutman level mildly decreased at 0.4 -Resume oral meds when alert (5) COPD (chronic obstructive pulmonary disease): Plan: -Typically on albuterol and Wixela -Stable on mechancal vent -Lungs are clear -Continue breathing treatments as needed Plan The patient was seen with and discussed with Dr. Shaw at the time of the admission History of Present Illness Chief Complaint: unresponsive Primary Care Provider: ABBIE Miller is a 52 year old male inmate of [facility] with a PMH significant for Bipolar 1 Disorder, alcohol abuse, amphetamine abuse, previous suicide attempts, and COPD who presented to the [facility] ED on 08/10 via EMS after being found unresponsive in his cell this am. Per EMS report, the patient was having full body tremors at the time of their arrival. In the ED the patient was unresponsive with reported upper extremity tremors and possible decorticate posturing with sternal rubbing. He was noted to be in afib rvr with a HR in the 140s-160's and initial systolic BP in the 80's, but otherwise stable. He was subsequently intubated due to his cognitive state. Labs were significant for a leukocytosis of 14 with left shift of 12, ABG with a pH of 7.30, pCO2 of 49, and pO2 of 77, calcium of 8.1, clean UA, negative tox screen, lithium level of 0.4, prolactin level of 30, and covid [address] of the head and CTA of the head/neck were read as 1. No acute intracranial hemorrhage, evidence of acute territorial infarction, or other acute intracranial disease process. 2. No occlusion, hemodynamically significant stenosis, or dissection in the major cervical arteries.3. No occlusion, hemodynamically significant stenosis, aneurysm, dissection, or arteriovenous malformation in the major intracranial arteries. Chest xray post intubation was read as "Satisfactory position of endotracheal tube.". The patient was started on a diltiazem drip, given a dose of ceftriaxone, 1L NSS, and loaded with Keppra prior to admission. The ED staff spoke with the [facility] [place] who was comfortable with the patient staying with initial EEG monitoring. At the time of the exam the patient was lying in bed, intubated, and in no acute distress. The nursing home guards do not believe that he attempted suicide since arriving at [facility] in March of this year. Please refer to Dr. Shaw's attestation for any changes to the treatment plan Allergies Allergy/AdvReac Type Severity Reaction Status Date / Time No Known Allergies Allergy Unverified 08/10/22 16:35 Home Medications Medication Instructions Recorded Confirmed Type Wixela Inhub 1 puff inhalation BID 08/10/22 08/10/22 History albuterol 90 mcg/actuation aerosol 2 mcg inhalation Q4H PRN Wheezing 08/10/22 08/10/22 History inhaler buspirone 10 mg PO BID 08/10/22 08/10/22 History lithium carbonate 450 mg PO BID 08/10/22 08/10/22 History risperidone 4 mg PO HS 08/10/22 08/10/22 History Past Med/Surg History Medical History Bipolar 1 disorder COPD (chronic obstructive pulmonary disease) Social History Smoking Status: Unknown if ever smoked Communication Ability: Unable Current Living Situation: Other Current Living Situation Comment: Prisoner Physical Exam Physical Exam: Physical Exam: General: Unconscious due to intubation status, stated age, well-nourished, good hygiene HEENT: Normocephalic, atraumatic, no scleral icterus, pupils around round, symmetrical, and reactive to light, moist mucus membranes, trachea midline, large, well-healed scar running transverse across the mid anterior neck, no thyromegaly Chest/Pulm: No respiratory distress, symmetrical chest expansion, clear breath sounds throughout Cardiac: RRR, no murmurs noted Abdomen: Scar located in the epigastric region is well-healed, Negative for ascites and bruising, normoactive bowel sounds, soft, no grimacing or guarding noted during palpation : Ascencio cath is in place, draining clear, yellow urine Musculoskeletal: Patient not moving extremities due to intubation status, well-healed scars noted on the right forearm, no acute trauma noted on exam Extremities: Radial, dorsalis pedis, and posterior tibial pulses are intact and symmetrical, no edema noted in the BL LE's Skin: Warm, dry, no rashes , lesions, or scars noted Neuro: Unresponsive, no abnormal posturing noted, not tremors noted, no focal neuro defects noted, negative Babinski BL Psych: Currently unconscious Results & Data Results & Data Vital Signs (Past 12 Hours) Vital Signs Pulse Resp BP Pulse Ox O2 Del Method O2 Flow Rate FiO2 08/10/22 09:36 91 08/10/22 08:10 141 H 18 96 50 08/10/22 08:48 115 H 08/10/22 07:51 142 H 22 125/89 96 Nasal Cannula 4 08/10/22 08:10 130 H Laboratory Results Abnormal lab results 08/10/22 08/10/22 08/10/22 Range/Units 09:14 09:16 09:16 WBC 14.50 H (4.8-10.8) K/ul RBC 4.24 L (4.70-6.10) M/uL POC Hgb 13.3 L (14.0-18.0) g/dl Hct 39.3 L (42.0-52.0) % POC Hct 39 L (42-52) % MPV 8.0 L (9.4-12.4) fL Neut # (Auto) 12.90 H (1.40-6.50) K/uL Lymph # (Auto) 0.61 L (1.2-3.4) K/uL Bracken # (Auto) 0.91 H (0.11-0.59) K/uL POC pH 7.30 L (7.35-7.45) POC pCO2 49 H (35-46) mmHg POC pO2 77 L (80-95) mmHg Chloride 108 H (98-107) mmol/L Glucose 153 H (70-99(Fasting)) mg/dl Calcium 8.1 L (8.6-10.3) mg/dl Troutman (0.6-1.2) mmol/L 08/10/22 Range/Units 09:17 WBC (4.8-10.8) K/ul RBC (4.70-6.10) M/uL POC Hgb (14.0-18.0) g/dl Hct (42.0-52.0) % POC Hct (42-52) % MPV (9.4-12.4) fL Neut # (Auto) (1.40-6.50) K/uL Lymph # (Auto) (1.2-3.4) K/uL Bracken # (Auto) (0.11-0.59) K/uL POC pH (7.35-7.45) POC pCO2 (35-46) mmHg POC pO2 (80-95) mmHg Chloride (98-107) mmol/L Glucose (70-99(Fasting)) mg/dl Calcium (8.6-10.3) mg/dl Troutman 0.4 L (0.6-1.2) mmol/L Diagnostic Findings Head CT 08/10/22 07:55 CT angio head w con, CT head/brain wo con, CT angio neck with con CLINICAL HISTORY: neuro deficit, acute stroke suspected TECHNIQUE: Contiguous axial CT images of the head were acquired from the base of the skull to the vertex without intravenous contrast administration. CT angiography of the head and neck was performed following intravenous administration of iodinated contrast. Coronal and sagittal MIPS were obtained from the axial data set and were submitted for review. Automated dose lowering techniques and/or adjustment according to patient size were utilized for this examination. All measurements were calculated based on NASCET criteria. CT DOSE: 1161.11 mGy.cm Comparison: None available at the time of this dictation. FINDINGS: CT head: There is no acute intracranial hemorrhage or evidence of acute territorial infarction. No shift of the midline structures, mass effect, or extra-axial abnormalities are shown. Extensive emphysema is seen. CTA Neck: A 3 vessel aortic arch is shown. There is no significant atherosclerotic plaque in the aortic arch or the origins of the innominate, left common carotid, and left subclavian arteries. The common carotid, external carotid, cervical segments of the internal carotid arteries, and the cervical segments of the vertebral arteries are patent without hemodynamically significant stenosis. The left vertebral artery is dominant. CTA Head: The anterior and posterior cerebral circulations are patent. origin of the right posterior cerebral artery is seen. IMPRESSION: 1. No acute intracranial hemorrhage, evidence of acute territorial infarction, or other acute intracranial disease process. 2. No occlusion, hemodynamically significant stenosis, or dissection in the major cervical arteries. 3. No occlusion, hemodynamically significant stenosis, aneurysm, dissection, or arteriovenous malformation in the major intracranial arteries. Assessment of stenosis of the internal carotid arteries is based on NASCET criteria. ACT 112: Negative or not required by law. Electronically signed by: Jarred Bob M.D. 08/10/2022 8:51 AM Head CTA 08/10/22 07:55 CT angio head w con, CT head/brain wo con, CT angio neck with con CLINICAL HISTORY: neuro deficit, acute stroke suspected TECHNIQUE: Contiguous axial CT images of the head were acquired from the base of the skull to the vertex without intravenous contrast administration. CT angiography of the head and neck was performed following intravenous administration of iodinated contrast. Coronal and sagittal MIPS were obtained from the axial data set and were submitted for review. Automated dose lowering techniques and/or adjustment according to patient size were utilized for this examination. All measurements were calculated based on NASCET criteria. CT DOSE: 1161.11 mGy.cm Comparison: None available at the time of this dictation. FINDINGS: CT head: There is no acute intracranial hemorrhage or evidence of acute territorial infarction. No shift of the midline structures, mass effect, or extra-axial abnormalities are shown. Extensive emphysema is seen. CTA Neck: A 3 vessel aortic arch is shown. There is no significant atherosclerotic plaque in the aortic arch or the origins of the innominate, left common carotid, and left subclavian arteries. The common carotid, external carotid, cervical segments of the internal carotid arteries, and the cervical segments of the vertebral arteries are patent without hemodynamically significant stenosis. The left vertebral artery is dominant. CTA Head: The anterior and posterior cerebral circulations are patent. origin of the right posterior cerebral artery is seen. IMPRESSION: 1. No acute intracranial hemorrhage, evidence of acute territorial infarction, or other acute intracranial disease process. 2. No occlusion, hemodynamically significant stenosis, or dissection in the major cervical arteries. 3. No occlusion, hemodynamically significant stenosis, aneurysm, dissection, or arteriovenous malformation in the major intracranial arteries. Assessment of stenosis of the internal carotid arteries is based on NASCET criteria. ACT 112: Negative or not required by law. Electronically signed by: Jarred Bob M.D. 08/10/2022 8:51 AM Neck CTA 08/10/22 07:55 CT angio head w con, CT head/brain wo con, CT angio neck with con CLINICAL HISTORY: neuro deficit, acute stroke suspected TECHNIQUE: Contiguous axial CT images of the head were acquired from the base of the skull to the vertex without intravenous contrast administration. CT angiography of the head and neck was performed following intravenous adminis tration of iodinated contrast. Coronal and sagittal MIPS were obtained from the axial data set and were submitted for review. Automated dose lowering techniques and/or adjustment according to patient size were utilized for this examination. All measurements were calculated based on NASCET criteria. CT DOSE: 1161.11 mGy.cm Comparison: None available at the time of this dictation. FINDINGS: CT head: There is no acute intracranial hemorrhage or evidence of acute territorial infarction. No shift of the midline structures, mass effect, or extra-axial abnormalities are shown. Extensive emphysema is seen. CTA Neck: A 3 vessel aortic arch is shown. There is no significant atherosclerotic plaque in the aortic arch or the origins of the innominate, left common carotid, and left subclavian arteries. The common carotid, external carotid, cervical segments of the internal carotid arteries, and the cervical segments of the vertebral arteries are patent without hemodynamically signi ficant stenosis. The left vertebral artery is dominant. CTA Head: The anterior and posterior cerebral circulations are patent. origin of the right posterior cerebral artery is seen. IMPRESSION: 1. No acute intracranial hemorrhage, evidence of acute territorial infarction, or other acute intracranial disease process. 2. No occlusion, hemodynamically significant stenosis, or dissection in the major cervical arteries. 3. No occlusion, hemodynamically significant stenosis, aneurysm, dissection, or arteriovenous malformation in the major intracranial arteries. Assessment of stenosis of the internal carotid arteries is based on NASCET criteria. ACT 112: Negative or not required by law. Electronically signed by: Jarred Bob M.D. 08/10/2022 8:51 AM Chest X-Ray 08/10/22 08:19 XR chest 1V portable CLINICAL HISTORY: post intub TECHNIQUE: Single frontal radiograph of the chest was obtained. Comparison: None available at the time of this dictation. FINDINGS: Endotracheal tube terminates 44 mm of the cordelia. The cardiomediastinal silhouette is normal. The lungs are clear. No evidence of pleural effusion or pneumothorax. IMPRESSION: Satisfactory position of endotracheal tube. ACT 112: Negative or not required by law. Electronically signed by: Jarred Bob M.D. 08/10/2022 8:33 AM Code Status & VTE Plan Code Status Full code VTE Prophylaxis Plan VTE Prophylaxis will be ordered: Yes Supervising Physician Co-Signing Physician Notes I personally saw and examined the patient. I verified all falcon points and agree w selam Laguna PA-C with the following exceptions and/or additions: 52 year old male with unresponsive episode from nursing home. Unable to get any history from patient as intubated and sedated at this time. Possible concern for seizure-like activity. O/E Intubated and sedated on propofol. Pupils small but equal and reactive. No limb movements. Multiple chronic well healed scars without cellulitis, HS tachycardic but regular rhythm (no longer in a. fib), no murmurs, Chest CTAB, Abdo soft and not distended A/P Unresponsive episode - admit to ICU, appreciate management of ventilation, no acute abnormality on CT head. Will get brain MRI and agree with lumbar puncture. EEG. Consult neurology. PG Care Time/CCT Total # of Minutes Spent Total Time Spent with Patient: Total time spent is greater than 50% in coordination of care (as documented) at patient's floor/unit and/or counseling patient: Coding [place] [address] INT INP/OBS CARE 3/75MIN Patient Type Established Medical Decision Making High Complexity Diagnoses Unresponsive state R41.89 On mechanically assisted ventilation Z99.11 Atrial fibrillation with RVR I48.91 Bipolar 1 disorder F31.9 COPD (chronic obstructive pulmonary disease) J44.9
[2022-08-10] MEDS ORDERED: PHARMACIST DISCHARGE MED REC CONSULT PRN (10:42)
[2022-08-10 11:07] LABS: C Reactive Protein 1.06 mg/dl (0-0.5)
--- NOTE | 2022-08-10 12:01 | Communication Note ---
Date of Service: August 10, 2022 Lumbar Puncture Procedure Note: Date: 08/10/2022 Time: 1205hrs Indication: Unresponsive state. Performing Physician: Dr. Bernal. Procedure performed in ICU, environmental science professor Dr. Delgadillo present at time of LP A time-out was completed verifying correct patient, procedure, site, positioning, and special equipment if applicable. Due to critical illness and ETT in place on mechanical ventilation with sedation procedure not able to be discussion with patient at bedside. Procedure was felt to be emergent given patient presentation. [facility] was notified of procedure on the patients behalf. No surrogate information immediately available. The patient was placed in theLeft lateraldecubitus position in a semi- position with help from the nursing staff. The area was cleansed and draped in usual sterile fashion. 1% lidocaine was used anesthetize the surrounding skin area. A 3.5-inch spinal needle was placed in theL3-L4 interspace and advanced with minimal resistance. Stylet was withdrawan and clear csf was returned. Four tubes were filled with 3cc, 2cc, 7cc, and 7cc (tubes 1-4 respectively) of CSF. Specimens were labelled with patient information and time of collection and sent to lab with the usual lab tests ordered. Estimated Blood Loss: <1ml. Complications: There were no complications during the procedure.
[2022-08-10] MEDS ORDERED: ICU Protocol for HYPERglycemia SCH (12:14)
--- NOTE | 2022-08-10 13:33 | XRay Report ---
XR KUB pre MRI HISTORY: 52 years-old Male needs to be cleared prior to MRI COMPARISON: Chest radiograph of same day TECHNIQUE: KUB FINDINGS: Ascencio catheter is noted within the midline pelvis. There is an additional catheter within the right a bdomen suggestive of a femoral line with distal tip overlying the L4 vertebral body. Distal tip of en teric tube projects over the gastric body. Nonobstructive bowel gas pattern. No urolith or acute frac ture. IMPRESSION: 1. Nonobstructive bowel gas pattern. 2. Lines and tubes as above. ACT 112: Negative or not required by law. The above report was generated using voice recognition software. It may contain grammatical, syntax o r spelling errors. Electronically signed by: Stuart Queen M.D. 08/10/2022 1:31 PM
[2022-08-10 13:49] LABS: Appearance CSF Clear; CSF Count Tube # 3; CSF Xanthrochromic No xanthochromia; Color CSF Colorless
[2022-08-10 13:50] LABS: Total Protein CSF 39.4 mg/dl (15-45)
[2022-08-10] MEDS ORDERED: ROCURONIUM BROMIDE 10 MG/ML 5 ML VIAL IV ONE (14:41)
[2022-08-10] MEDS ORDERED: ETOMIDATE 2 MG/ML 20 ML VIAL IV ONE (14:41)
--- NOTE | 2022-08-10 15:01 | Electroencephalogram ---
EEG Procedure Note Date of Service August 10, 2022 Start / End Times Start Time: 14:00 End Time: 14:[address] Moshe Laguna History A 52 year old male presenting with concern for non convulsive status. EEG performed for evaluatio of epileptiform activity. Home Medication List Medication Instructions Recorded Confirmed Type Wixela Inhub 1 puff inhalation BID 08/10/22 08/10/22 History albuterol 90 mcg/actuation aerosol 2 mcg inhalation Q4H PRN Wheezing 08/10/22 08/10/22 History inhaler buspirone 10 mg PO BID 08/10/22 08/10/22 History lithium carbonate 450 mg PO BID 08/10/22 08/10/22 History risperidone 4 mg PO HS 08/10/22 08/10/22 History Inpatient Medication List Propofol (Diprivan) 1,000 mg in 100 mls @ 10.428 mls/hr IV .Q9H36M [facility]; Protocol Stop: 08/13/22 09:29 Last Titration: 08/10/22 14:49 Dose: 20 mcg/kg/min, 10.4 mls/hr Documented By: [id number] Titration: 08/10/22 10:09 Dose: 25 mcg/kg/min, 13 mls/hr Documented By: Admin: 08/10/22 09:29 Dose: 20 mcg/kg/min, 10.4 mls/hr Documented By: JACQUELIN Co-signed By: FELTON Discontinued Medications Diltiazem HCl (Diltiazem Hcl 5 Mg/Ml 5 Ml Vial) 10 mg IV NOW STA Stop: 08/10/22 08:15 Last Admin: 08/10/22 09:29 Dose: Not Given Documented By: JACQUELIN Levetiracetam 2,000 mg/ Sodium (Chloride) 270 mls @ 999 mls/hr IV NOW STA Stop: 08/10/22 08:30 Last Infusion: 08/10/22 09:31 Dose: 0 mls/hr Documented By: Admin: 08/10/22 09:07 Dose: 999 mls/hr Documented By: FELTON Sodium Chloride (Nss 1000ml) 1,000 mls @ 999 mls/hr IV .Q1H1M ONE Stop: 08/10/22 09:14 Last Infusion: 08/10/22 11:20 Dose: 0 mls/hr Documented By: Admin: 08/10/22 09:31 Dose: 999 mls/hr Documented By: JACQUELIN Diltiazem HCl 125 mg/ Dextrose 125 mls @ 5 mls/hr IV .Q24H NIMISHA; Protocol Stop: 09/09/22 08:14 Last Titration: 08/10/22 10:30 Dose: 0 mg/hr, 0 mls/hr Documented By: JACQUELIN Co-signed By: KANG Admin: 08/10/22 09:07 Dose: 5 mg/hr, 5 mls/hr Documented By: FELTON Co-signed By: JACQUELIN Levetiracetam 2,000 mg/ Sodium (Chloride) 270 mls @ 999 mls/hr IV NOW STA Stop: 08/10/22 10:01 Last Infusion: 08/10/22 11:20 Dose: 0 mls/hr Documented By: Admin: 08/10/22 10:28 Dose: 999 mls/hr Documented By: JACQUELIN Ceftriaxone Sodium (Rocephin) 2,000 mg in 70 mls @ 140 mls/hr IV NOW STA Stop: 08/10/22 10:17 Last Infusion: 08/10/22 13:31 Dose: 0 mls/hr Documented By: [id number] Admin: 08/10/22 11:18 Dose: 140 mls/hr Documented By: JACQUELIN Ioversol (Optiray 320 500ml) 120 ml IV ONCE ONE Stop: 08/10/22 08:29 Last Admin: 08/10/22 08:28 Dose: 120 ml Documented By: ISIDORO Sherman (Stat Iv Infusion Titration Per Protocol) 1 each N/A NOW STA Stop: 08/10/22 08:15 Last Admin: 08/10/22 13:31 Dose: Not Given Documented By: [id number] Whit (Icu Protocol For Hyperglycemia) 1 each N/A ACHS NIMISHA Stop: 08/12/22 12:13 Last Admin: 08/10/22 14:51 Dose: Not Given Documented By: [id number] Propofol (Propofol Iv Emulsion 10 Mg/Ml 100 Ml Vial) Confirm Administered Dose 1,000 mg IV .STK-MED ONE Stop: 08/10/22 09:16 Last Admin: 08/10/22 09:31 Dose: Not Given Documented By: JACQUELIN Propofol (Propofol Bolus From Bag) 50 mg IV ONE ONE Stop: 08/10/22 09:31 Last Admin: 08/10/22 09:30 Dose: 50 mg Documented By: MT Co-signed By: FELTON Description This is a 21 electrode EEG with a single channel dedicated to limited EKG. The electrodes were placed in accordance with the International 10-20 system. REPORT: At the onset of the EEG the patient is in an altered mental state. The background is continuous and symmetric. The posterior dominant rhythm is not seen. Instead the background consist of 5-7 theta activity with some intermixed delta activity. Interpretation IMPRESSION: This is an abnormal routine EEG in a patient with altered mentation due to generalized background slowing suggestive of a non specific encephalopat hy. No electrographic seizures or epileptiform discharges are seen.
--- NOTE | 2022-08-10 15:10 | Neurology Consultation ---
Date of Consultation August 10, 2022 Assessment & Plan (1) Unresponsive state: Coma of unknown etiology in a 52 yo M prisoner with a normal LP and unremarkable EEG. Lactate was negative on admission suggesting against seizure despite the focal posturing. There is no EEG evidence of any epileptiform activity. Would stop the Keppra given the unremarkable EEG. He was hypercarbic on arrival and in afib with RVR, perhaps this was an aborted arrest or hypoxic-ischemic injury. Agree with MRI brain which is pending. -- Okay to discontinue Keppra from my perspective -- MRI brain without contrast pending, concern for hypoxic-ischemic injury -- Echo pending -- No evidence of meningitis on LP -- We will follow Telehealth Consultation Telehealth Information Telehealth Information: I performed this visit using a real-time telehealth connection between my location and the patients location ([facility]). After connecting through interactive tele-video, patient was identified by name and date of and/or wristband check.Patient (or authorized healthcare support representative) was informed that this was a telemedicine visit and it was being conducted confidentially over secure lines. My office door was closed and no one else was present in the room with me.Patient (or authorized healthcare support representative) provided consent to proceed with the visit, expressed an understanding of privacy and security of the telemedicine visit, and gave permission to have a hospital support representative in the room in order to assist with the visit and to conduct portions of the visit, as needed. I informed the patient (or authorized healthcare support representative) that I reviewed their record and presented the opportunity for them to ask any questions regarding the visit today. The patient agreed to participate. History of Present Illness Reason for Consultation: Altered mental status Requesting Physician: Dr. Shaw Attending Physician: Liborio Shaw MD History of Present Illness Anupam Miller is a 52 yo M prisoner presenting after guards found him unresponsive in his cell this morning. Enroute to the ED he was hypotensive and on arrival there was some focal posturing noted and he was intubated and given Keppra. Subsequently he remains intubated and sedated on propofol. Otherwise no further history available. Home Medications Medication Instructions Recorded Confirmed Type Wixela Inhub 1 puff inhalation BID 08/10/22 08/10/22 History albuterol 90 mcg/actuation aerosol 2 mcg inhalation Q4H PRN Wheezing 08/10/22 08/10/22 History inhaler buspirone 10 mg PO BID 08/10/22 08/10/22 History lithium carbonate 450 mg PO BID 08/10/22 08/10/22 History risperidone 4 mg PO HS 08/10/22 08/10/22 History Patient History Social History Smoking Status: Unknown if ever smoked Review of Systems Unable to obtain Physical Exam Intubated and sedated, no abnormal movements noted. Results & Data Vital Signs (Past 12 Hours) Vital Signs Pulse Resp BP Pulse Ox O2 Del Method O2 Flow Rate FiO2 08/10/22 14:15 79 18 98 08/10/22 14:15 87/58 L 08/10/22 14:00 80 18 98 08/10/22 14:00 89/60 L 08/10/22 13:45 82 18 98 08/10/22 13:45 90/57 L 08/10/22 13:30 83 18 98 08/10/22 13:30 95/60 L 08/10/22 13:15 87 23 99 08/10/22 13:15 98/68 L 08/10/22 13:12 91 H 19 99 08/10/22 13:12 96/65 L 08/10/22 13:11 80/69 L 08/10/22 13:11 91 H 23 99 08/10/22 13:05 113/77 08/10/22 13:05 85 20 100 08/10/22 13:00 84 23 100 08/10/22 13:00 111/79 08/10/22 12:55 86 23 100 08/10/22 12:55 105/79 08/10/22 12:51 90 17 100 08/10/22 12:51 110/66 08/10/22 12:47 83 18 100 08/10/22 12:47 126/78 08/10/22 12:45 83 19 89 L 08/10/22 12:30 81 20 98 08/10/22 12:30 111/70 08/10/22 12:18 107/67 08/10/22 12:18 85 17 08/10/22 12:16 86 20 98 08/10/22 11:45 22 98 08/10/22 11:45 91/66 L 08/10/22 12:00 84 26 H 96 35 08/10/22 11:30 28 H 96/65 L 98 08/10/22 11:15 24 99/67 L 97 08/10/22 11:00 85 16 97/77 L 97 08/10/22 10:45 84 23 94/66 L 98 08/10/22 10:40 85 25 H 100/67 98 08/10/22 10:55 83 23 97 50 08/10/22 10:30 88 25 H 107/69 98 08/10/22 10:15 93 H 19 105/70 97 08/10/22 10:00 93 H 23 113/74 96 08/10/22 09:45 96 H 22 110/78 97 08/10/22 09:30 103 H 26 H 117/74 91 08/10/22 09:15 113 H 21 151/95 H 96 08/10/22 09:10 111 H 20 150/102 H 95 08/10/22 08:45 117 H 18 151/83 H 90 08/10/22 08:15 170 H 18 137/100 90 Mechanical Vent 08/10/22 09:36 91 08/10/22 08:10 141 H 18 96 50 08/10/22 08:48 115 H 08/10/22 07:51 142 H 22 125/89 96 Nasal Cannula 4 08/10/22 08:10 130 H Laboratory Results Abnormal lab results 08/10/22 08/10/22 08/10/22 Range/Units 09:14 09:16 09:16 WBC 14.50 H (4.8-10.8) K/ul RBC 4.24 L (4.70-6.10) M/uL POC Hgb 13.3 L (14.0-18.0) g/dl Hct 39.3 L (42.0-52.0) % POC Hct 39 L (42-52) % MPV 8.0 L (9.4-12.4) fL Neut # (Auto) 12.90 H (1.40-6.50) K/uL Lymph # (Auto) 0.61 L (1.2-3.4) K/uL [place] # (Auto) 0.91 H (0.11-0.59) K/uL POC pH 7.30 L (7.35-7.45) POC pCO2 49 H (35-46) mmHg POC pO2 77 L (80-95) mmHg Chloride 108 H (98-107) mmol/L Glucose 153 H (70-99(Fasting)) mg/dl Calcium 8.1 L (8.6-10.3) mg/dl C-Reactive Protein 1.06 H (0-0.5) mg/dl CSF Glucose (40-70) mg/dl [place] (0.6-1.2) mmol/L 08/10/22 08/10/22 08/10/22 Range/Units 09:17 12:45 12:53 WBC (4.8-10.8) K/ul RBC (4.70-6.10) M/uL POC Hgb (14.0-18.0) g/dl Hct (42.0-52.0) % POC Hct (42-52) % MPV (9.4-12.4) fL Neut # (Auto) (1.40-6.50) K/uL Lymph # (Auto) (1.2-3.4) K/uL [place] # (Auto) (0.11-0.59) K/uL POC pH (7.35-7.45) POC pCO2 (35-46) mmHg POC pO2 (80-95) mmHg Chloride (98-107) mmol/L Glucose 120 H (70-99(Fasting)) mg/dl Calcium (8.6-10.3) mg/dl C-Reactive Protein (0-0.5) mg/dl CSF Glucose 92 H (40-70) mg/dl [place] 0.4 L (0.6-1.2) mmol/L Diagnostic Findings CT/CTA - Unremarkable
[2022-08-10 15:45] LABS: Cryptococcus neoformans/ga PCR Not Detected (NotDetected); Cytomegalovirus PCR Not Detected (NotDetected); Enterovirus PCR Not Detected (NotDetected); Escherichia coli K1 PCR Not Detected (NotDetected); Haemophilius influenzae PCR Not Detected (NotDetected); Herpes Simplex Virus 1 PCR Not Detected (NotDetected); Herpes Simplex Virus 2 PCR Not Detected (NotDetected); Human Parechovirus PCR Not Detected (NotDetected); Listeria monocytogenes PCR Not Detected (NotDetected); Neisseria meningitidis PCR Not Detected (NotDetected); Streptococcus agalactiae PCR Not Detected (NotDetected); Streptococcus pneumoniae PCR Not Detected (NotDetected); Varicella Zoster Virus PCR Not Detected (NotDetected)
--- NOTE | 2022-08-10 15:49 | Critical Care Consultation ---
Date of Consultation August 10, 2022 Assessment & Plan (1) Human herpesvirus 6 encephalitis: Reason Critically Ill: 52-year-old male with acute encephalopathy PLAN: Neuro: Acute encephalopathy -Bio fire positive for human herpes virus 6 -Neurology consulted and has reviewed EEG -MRI pending at this time -Propofol Fentanyl as needed for sedation -Loaded with Keppra which has subsequently been discontinued per neurology Bipolar type I -Zeigler marginally low at 0.4 -Continue 450 mg lithium twice daily Resp: Hypercapnic respiratory failure -Presumptive secondary to encephalopathy CV: Atrial fibrillation with rapid response -Conversion to normal sinus rhythm with diltiazem which has been subsequently discontinued Fluids/Renal: Plasma-Lyte as maintenance fluid 80 mils per hour ID: Human herpes virus 6 encephalitis via bio fire PCR -LP performed: Glucose and protein largely unremarkable, small amount of red cells this is no xanthochromia -ID connect consult to Michelle Nelson re: antiviral versus supportive care -HIV test ordered, no report of immunocompromise Heme: DVT prophylaxis: Lovenox 40 mg daily Endocrine: ICU hyperglycemia protocol Vascular access: Peripheral IVs Code Status: Full code Disposition: ICU (2) Atrial fibrillation with RVR: (3) Bipolar 1 disorder: (4) COPD (chronic obstructive pulmonary disease): Supervising Physician Co-Signing Physician Notes I have personally spent 85 minutes of critical care time in the direct manag ement of this patient. This is a life/limb threatening event. This includes time spent evaluating patient, direct bedside care, chart review, placing orders, interpretation of diagnostic studies, discussion with consultants, patient, and/or family members regarding treatment decisions, as well as other required patient management activities. This time is exclusive of all separately billable procedures, and teaching time and separate from and in addition to any other critical care service time. History of Present Illness Reason for Consultation: Intubation for respiratory failure Attending Physician: Liborio Shaw MD History of Present Illness History is soley obtained from prior records: Anupam Miller is a 52 year old male inmate of [facility] with a PMH significant for Bipolar 1 Disorder, alcohol abuse, amphetamine abuse, previous suicide attempts, and COPD who presented to the [facility] ED on 08/10 via EMS after being found unresponsive in his cell this am. Per EMS report, the patient was having full body tremors at the time of their arrival. In the ED the patient was unresponsive with reported upper extremity tremors and possible decorticate posturing with sternal rubbing. He was noted to be in afib rvr with a HR in the 140s-160's and initial systolic BP in the 80's, but otherwise stable. He was subsequently intubated due to his cognitive state. Labs were significant for a leukocytosis of 14 with left shift of 12, ABG with a pH of 7.30, pCO2 of 49, and pO2 of 77, calcium of 8.1, clean UA, negative tox screen, lithium level of 0.4, prolactin level of 30, and covid [address] of the head and CTA of the head/neck were read as 1. No acute intracranial hemorrhage, evidence of acute territorial infarction, or other acute intracranial disease process. 2. No occlusion, hemodynamically significant stenosis, or dissection in the major cervical arteries.3. No occlusion, hemodynamically significant stenosis, aneurysm, dissection, or arteriovenous malformation in the major intracranial arteries. Chest xray post intubation was read as "Satisfactory position of endotracheal tube.". The patient was started on a diltiazem drip, given a dose of ceftriaxone, 1L NSS, and loaded with Keppra prior to admission. The ED staff spoke with the [facility] team who was comfortable with the patient staying with initial EEG monitoring. At the time of the exam the patient was lying in bed, intubated, and in no acute distress. The jail guards do not believe that he attempted suicide since arriving at [facility] in March of this year. At the time of my evaluation a lumbar puncture had been performed, it appeared clear the CSF analysis has been reviewed, there is no reported history of HIV infection or immunocompromise. Patient had received an EEG which is largely unremarkable a MRI is still pending at this time. Home Medications Medication Instructions Recorded Confirmed Type Wixela Inhub 1 puff inhalation BID 08/10/22 08/10/22 History albuterol 90 mcg/actuation aerosol 2 mcg inhalation Q4H PRN Wheezing 08/10/22 08/10/22 History inhaler buspirone 10 mg PO BID 08/10/22 08/10/22 History lithium carbonate 450 mg PO BID 08/10/22 08/10/22 History risperidone 4 mg PO HS 08/10/22 08/10/22 History Patient History Social History Smoking Status: Unknown if ever smoked Review of Systems Review of Systems: Unobtainable due to endotracheal tube and Unobtainable due to reduced consciousness Physical Exam Physical Exam: General: Sedated. nontoxic. Skin: Warm, dry, Head: Atraumatic Ears, nose, mouth and throat: airway obscured by endotracheal tube Cardiovascular: Normal peripheral perfusion Respiratory: Ventilator settings reviewed Gastrointestinal: Non distended Musculoskeletal: No deformity Results & Data Results & Data Vital Signs (Past 12 Hours) Vital Signs Pulse Resp BP Pulse Ox O2 Del Method O2 Flow Rate FiO2 08/10/22 15:34 80 18 98 30 08/10/22 14:15 79 18 98 08/10/22 14:15 87/58 L 08/10/22 14:00 80 18 98 08/10/22 14:00 89/60 L 08/10/22 13:45 82 18 98 08/10/22 13:45 90/57 L 08/10/22 13:30 83 18 98 08/10/22 13:30 95/60 L 08/10/22 13:15 87 23 99 08/10/22 13:15 98/68 L 08/10/22 13:12 91 H 19 99 08/10/22 13:12 96/65 L 08/10/22 13:11 80/69 L 08/10/22 13:11 91 H 23 99 08/10/22 13:05 113/77 08/10/22 13:05 85 20 100 08/10/22 13:00 84 23 100 08/10/22 13:00 111/79 08/10/22 12:55 86 23 100 08/10/22 12:55 105/79 08/10/22 12:51 90 17 100 08/10/22 12:51 110/66 08/10/22 12:47 83 18 100 08/10/22 12:47 126/78 08/10/22 12:45 83 19 89 L 08/10/22 12:30 81 20 98 08/10/22 12:30 111/70 08/10/22 12:18 107/67 08/10/22 12:18 85 17 08/10/22 12:16 86 20 98 08/10/22 11:45 22 98 06/15/23 11:45 91/66 L 08/10/22 12:00 84 26 H 96 35 08/10/22 11:30 28 H 96/65 L 98 08/10/22 11:15 24 99/67 L 97 08/10/22 11:00 85 16 97/77 L 97 08/10/22 10:45 84 23 94/66 L 98 08/10/22 10:40 85 25 H 100/67 98 08/10/22 10:55 83 23 97 50 08/10/22 10:30 88 25 H 107/69 98 08/10/22 10:15 93 H 19 105/70 97 08/10/22 10:00 93 H 23 113/74 96 08/10/22 09:45 96 H 22 110/78 97 08/10/22 09:30 103 H 26 H 117/74 91 08/10/22 09:15 113 H 21 151/95 H 96 08/10/22 09:10 111 H 20 150/102 H 95 08/10/22 08:45 117 H 18 151/83 H 90 08/10/22 08:15 170 H 18 137/100 90 Mechanical Vent 08/10/22 09:36 91 08/10/22 08:10 141 H 18 96 50 08/10/22 08:48 115 H 08/10/22 07:51 142 H 22 125/89 96 Nasal Cannula 4 08/10/22 08:10 130 H Critical Care Results & Data Vital Signs (Past 12 Hours) Vital Signs Pulse Resp BP Pulse Ox O2 Del Method O2 Flow Rate FiO2 08/10/22 15:34 80 18 98 30 08/10/22 14:15 79 18 98 08/10/22 14:15 87/58 L 08/10/22 14:00 80 18 98 08/10/22 14:00 89/60 L 08/10/22 13:45 82 18 98 08/10/22 13:45 90/57 L 08/10/22 13:30 83 18 98 08/10/22 13:30 95/60 L 08/10/22 13:15 87 23 99 08/10/22 13:15 98/68 L 08/10/22 13:12 91 H 19 99 08/10/22 13:12 96/65 L 08/10/22 13:11 80/69 L 08/10/22 13:11 91 H 23 99 06/15/23 13:05 113/77 08/10/22 13:05 85 20 100 08/10/22 13:00 84 23 100 08/10/22 13:00 111/79 08/10/22 12:55 86 23 100 08/10/22 12:55 105/79 08/10/22 12:51 90 17 100 08/10/22 12:51 110/66 08/10/22 12:47 83 18 100 08/10/22 12:47 126/78 08/10/22 12:45 83 19 89 L 08/10/22 12:30 81 20 98 08/10/22 12:30 111/70 08/10/22 12:18 107/67 08/10/22 12:18 85 17 08/10/22 12:16 86 20 98 08/10/22 11:45 22 98 08/10/22 11:45 91/66 L 08/10/22 12:00 84 26 H 96 35 08/10/22 11:30 28 H 96/65 L 98 08/10/22 11:15 24 99/67 L 97 08/10/22 11:00 85 16 97/77 L 97 08/10/22 10:45 84 23 94/66 L 98 08/10/22 10:40 85 25 H 100/67 98 08/10/22 10:55 83 23 97 50 08/10/22 10:30 88 25 H 107/69 98 08/10/22 10:15 93 H 19 105/70 97 08/10/22 10:00 93 H 23 113/74 96 08/10/22 09:45 96 H 22 110/78 97 08/10/22 09:30 103 H 26 H 117/74 91 08/10/22 09:15 113 H 21 151/95 H 96 08/10/22 09:10 111 H 20 150/102 H 95 08/10/22 08:45 117 H 18 151/83 H 90 08/10/22 08:15 170 H 18 137/100 90 Mechanical Vent 08/10/22 09:36 91 08/10/22 08:10 141 H 18 96 50 08/10/22 08:48 115 H 08/10/22 07:51 142 H 22 125/89 96 Nasal Cannula 4 08/10/22 08:10 130 H Lab & Micro Results (Past 24 Hours) RBC 4.24 M/uL (4.70-6.10) L 08/10/22 WBC 14.50 K/ul (4.8-10.8) H 08/10/22 Hgb 14.1 g/dl (14.0-18.0) 08/10/22 Hct 39.3 % (42.0-52.0) L 08/10/22 MCV 92.7 fL (80.0-100.0) 08/10/22 MCH 33.3 pg (25.0-34.0) 08/10/22 MCHC 35.9 g/dL (32.0-36.0) 08/10/22 RDW Standard Deviation 40.5 fL (36.4-46.3) 08/10/22 RDW Coefficient of Variation 11.9 % (11.5-14.5) 08/10/22 Plt Count 239 K/uL (130-400) 08/10/22 MPV 8.0 fL (9.4-12.4) L 08/10/22 Neutrophils (%) (Auto) 89.0 % 08/10/22 Lymphocytes (%) (Auto) 4.2 % 08/10/22 Monocytes # (Auto) 0.91 K/uL (0.11-0.59) H 08/10/22 Eosinophils # (Auto) 0.00 K/uL (0-0.50) 08/10/22 Immature Granulocyte % (Auto) 0.3 % 08/10/22 Neutrophils # (Auto) 12.90 K/uL (1.40-6.50) H 08/10/22 Lymphocytes # (Auto) 0.61 K/uL (1.2-3.4) L 08/10/22 Monocytes # (Auto) 0.91 K/uL (0.11-0.59) H 08/10/22 Eosinophils # (Auto) 0.00 K/uL (0-0.50) 08/10/22 Basophils # (Auto) 0.03 K/uL (0-0.2) 08/10/22 Immature Granulocyte # (Auto) 0.05 K/uL (0.01-0.20) 3 Na 137 mmol/L (136-145) 08/10/22 K 4.0 mmol/L (3.5-5.1) 08/10/22 Cl 108 mmol/L (98-107) H 08/10/22 CO2 22 mmol/L (21-32) 08/10/22 Anion Gap 7 (3-11) 08/10/22 BUN 12 mg/dl (6-23) 08/10/22 Creatinine 0.73 mg/dl (0.6-1.4) 08/10/22 Estimated GFR ( Amer) 123.6 ml/min 08/10/22 Estimated GFR (Non-Af Amer) 106.6 ml/min 08/10/22 BUN/Creatinine Ratio 16.4 (10-20) 08/10/22 Glu 120 mg/dl (70-99(Fasting)) H 08/10/22 Ca 8.1 mg/dl (8.6-10.3) L 08/10/22 Total Bilirubin 1.0 mg/dl (0.2-1.0) 08/10/22 AST 15 U/L (13-39) 08/10/22 ALT 12 U/L (7-52) 08/10/22 Alkaline Phosphatase 79 U/L (34-104) 08/10/22 TP 6.6 gm/dl (6.0-8.3) 08/10/22 Albumin 3.9 gm/dl (3.4-5.0) 08/10/22 Globulin 2.7 gm/dl (2.5-4.0) 08/10/22 Albumin/Globulin Ratio 1.4 (0.9-2) 08/10/22 Mg 1.8 mg/dl (1.7-2.4) 08/10/22 09:16 Calcium Level 8.1 mg/dl (8.6-10.3) L 08/10/22 09:16 Prothromb Time International Ratio 1.1 (0.9-1.1) 08/10/22 09:1 6 Microbiology 08/10/22 12:45 Gram Stain - Final Cerebral Spinal Fluid Diagnostic Findings (Past 24 Hours) Head CT 08/10/22 07:55 CT angio head w con, CT head/brain wo con, CT angio neck with con CLINICAL HISTORY: neuro deficit, acute stroke suspected TECHNIQUE: Contiguous axial CT images of the head were acquired from the base of the skull to the vertex without intravenous contrast administration. CT angiography of the head and neck was performed following intravenous administration of iodinated contrast. Coronal and sagittal MIPS were obtained from the axial data set and were submitted for review. Automated dose lowering techniques and/or adjustment according to patient size were utilized for this examination. All measurements were calculated based on NASCET criteria. CT DOSE: 1161.11 mGy.cm Comparison: None available at the time of this dictation. FINDINGS: CT head: There is no acute intracranial hemorrhage or evidence of acute territorial infarction. No shift of the midline structures, mass effect, or extra-axial abnormalities are shown. Extensive emphysema is seen. CTA Neck: A 3 vessel aortic arch is shown. There is no significant atherosclerotic plaque in the aortic arch or the origins of the innominate, left common carotid, and left subclavian arteries. The common carotid, external carotid, cervical segments of the internal carotid arteries, and the cervical segments of the vertebral arteries are patent without hemodynamically signi ficant stenosis. The left vertebral artery is dominant. CTA Head: The anterior and posterior cerebral circulations are patent. origin of the right posterior cerebral artery is seen. IMPRESSION: 1. No acute intracranial hemorrhage, evidence of acute territorial infarction, or other acute intracranial disease process. 2. No occlusion, hemodynamically significant stenosis, or dissection in the major cervical arteries. 3. No occlusion, hemodynamically significant stenosis, aneurysm, dissection, or arteriovenous malformation in the major intracranial arteries. Assessment of stenosis of the internal carotid arteries is based on NASCET criteria. ACT 112: Negative or not required by law. Electronically signed by: Jarred Bob M.D. 08/10/2022 8:51 AM Head CTA 08/10/22 07:55 CT angio head w con, CT head/brain wo con, CT angio neck with con CLINICAL HISTORY: neuro deficit, acute stroke suspected TECHNIQUE: Contiguous axial CT images of the head were acquired from the base of the skull to the vertex without intravenous contrast administration. CT angiography of the head and neck was performed following intravenous administration of iodinated contrast. Coronal and sagittal MIPS were obtained from the axial data set and were submitted for review. Automated dose lowering techniques and/or adjustment according to patient size were utilized for this examination. All measurements were calculated based on NASCET criteria. CT DOSE: 1161.11 mGy.cm Comparison: None available at the time of this dictation. FINDINGS: CT head: There is no acute intracranial hemorrhage or evidence of acute territorial infarction. No shift of the midline structures, mass effect, or extra-axial abnormalities are shown. Extensive emphysema is seen. CTA Neck: A 3 vessel aortic arch is shown. There is no significant atherosclerotic plaque in the aortic arch or the origins of the innominate, left common carotid, and left subclavian arteries. The common carotid, external carotid, cervical segments of the internal carotid arteries, and the cervical segments of the vertebral arteries are patent without hemodynamically significant stenosis. The left vertebral artery is dominant. CTA Head: The anterior and posterior cerebral circulations are patent. origin of the right posterior cerebral artery is seen. IMPRESSION: 1. No acute intracranial hemorrhage, evidence of acute territorial infarction, or other acute intracranial disease process. 2. No occlusion, hemodynamically significant stenosis, or dissection in the major cervical arteries. 3. No occlusion, hemodynamically significant stenosis, aneurysm, dissection, or arteriovenous malformation in the major intracranial arteries. Assessment of stenosis of the internal carotid arteries is based on NASCET criteria. ACT 112: Negative or not required by law. Electronically signed by: Jarred Bob M.D. 08/10/2022 8:51 AM Neck CTA 08/10/22 07:55 CT angio head w con, CT head/brain wo con, CT angio neck with con CLINICAL HISTORY: neuro deficit, acute stroke suspected TECHNIQUE: Contiguous axial CT images of the head were acquired from the base of the skull to the vertex without intravenous contrast administration. CT wero ography of the head and neck was performed following intravenous administration of iodinated contrast. Coronal and sagittal MIPS were obtained from the axial data set and were submitted for review. Automated dose lowering techniques and/or adjustment according to patient size were utilized for this examination. All measurements were calculated based on NASCET criteria. CT DOSE: 1161.11 mGy.cm Comparison: None available at the time of this dictation. FINDINGS: CT head: There is no acute intracranial hemorrhage or evidence of acute territorial infarction. No shift of the midline structures, mass effect, or extra-axial abnormalities are shown. Extensive emphysema is seen. CTA Neck: A 3 vessel aortic arch is shown. There is no significant atherosclerotic plaque in the aortic arch or the origins of the innominate, left common carotid, and left subclavian arteries. The common carotid, external carotid, cervical segments of the internal carotid arteries, and the cervical segments of the vertebral arteries are patent without hemodynamically significant stenosis. The left vertebral artery is dominant. CTA Head: The anterior and posterior cerebral circulations are patent. origin of the right posterior cerebral artery is seen. IMPRESSION: 1. No acute intracranial hemorrhage, evidence of acute territorial infarction, or other acute intracranial disease process. 2. No occlusion, hemodynamically significant stenosis, or dissection in the major cervical arteries. 3. No occlusion, hemodynamically significant stenosis, aneurysm, dissection, or arteriovenous malformation in the major intracranial arteries. Assessment of stenosis of the internal carotid arteries is based on NASCET criteria. ACT 112: Negative or not required by law. Electronically signed by: Jarred Bob M.D. 08/10/2022 8:51 AM Chest X-Ray 08/10/22 08:19 XR chest 1V portable CLINICAL HISTORY: post intub TECHNIQUE: Single frontal radiograph of the chest was obtained. Comparison: None available at the time of this dictation. FINDINGS: Endotracheal tube terminates 44 mm of the cordelia. The cardiomediastinal silhouette is normal. The lungs are clear. No evidence of pleural effusion or pneumothorax. IMPRESSION: Satisfactory position of endotracheal tube. ACT 112: Negative or not required by law. Electronically signed by: Jarred Bob M.D. 08/10/2022 8:33 AM KUB X-Ray 08/10/22 12:24 XR KUB pre MRI HISTORY: 52 years-old Male needs to be cleared prior to MRI COMPARISON: Chest radiograph of same day TECHNIQUE: KUB FINDINGS: Ascencio catheter is noted within the midline pelvis. There is an additional catheter within the right abdomen suggestive of a femoral line with distal tip overlying the L4 vertebral body. Distal tip of enteric tube projects over the g astric body. Nonobstructive bowel gas pattern. No urolith or acute fracture. IMPRESSION: 1. Nonobstructive bowel gas pattern. 2. Lines and tubes as above. ACT 112: Negative or not required by law. The above report was generated using voice recognition software. It may contain grammatical, syntax or spelling errors. Electronically signed by: Stuart Queen M.D. 08/10/2022 1:31 PM I & O Totals 24 Hours 08/09/22 08/10/22 08/11/22 06:59 06:59 06:59 Intake Total 1684.517 / 1684.517 Balance 1684.517 / 1684.517 Cumulative 08/10/22 07:48 thru 08/10/22 14:57 Intake Total 1684.517 Balance 1684.517 RT Ventilator Mngmt (Last Documented) Ventilator Ordered Settings Ventilator Support Mode Assist Control 08/10/22 15:34 Respiratory Rate 18 08/10/22 15:34 Ventilator Tidal Volume 410 08/10/22 15:34 Setting Minute Ventilation 7.3 08/10/22 15:34 Positive End Expiratory 5 08/10/22 15:34 Pressure Fraction of Inspired Oxygen 30 08/10/22 15:34 Peak Inspiratory Flow 47 08/10/22 15:34 Machine Comment weaned to 40% 08/10/22 10:55 Ventilator - PT Measurements Respiratory Rate 18 Exhaled Tidal Volume 410 Minute Ventilation 7.3 Peak Inspiratory Airway 14 Pressure Plateau Pressure 9.4 Respiratory Cycle Inspiratory: 1:2.8 Expiratory Ratio Inspiratory Phase Time 0.70 End-Tidal CO2 29 Static Lung Compliance 93.18 Dynamic Lung Compliance 45.56 Normal Static Lung Compliance 48.00 Patient Measurements Comment ETT adjusted per per X-ray Coding Level of Care Code 54999 CRITICAL CARE 1ST 30-74M Additional Critical Care Time Additional 30min Critical Care Time: Yes - 67942 Total Critical Care Time: 85 Diagnoses Human herpesvirus 6 encephalitis B10.01 Atrial fibrillation with RVR I48.91 Bipolar 1 disorder F31.9 COPD (chronic obstructive pulmonary disease) J44.9 Additional Codes Critical Care Time - Additional 30min Critical Care Time: Yes - 60141 ([id number])
[2022-08-10 15:52] LABS: Human Herpes Virus 6 PCR DETECTED (NotDetected)
[2022-08-10] MEDS ORDERED: Patient's ALLERGY Info needs ENTERED SCH (16:30)
--- NOTE | 2022-08-10 16:35 | Infectious Disease Consult ---
Date of Consultation August 10, 2022 Assessment & Plan (1) Altered mental status: (2) Leukocytosis: Plan Micro: 08/10 HIV screen: pending 08/10 CSF Routine cx: pending. GS--no organisms Fungal cx: pending AFB smear, cx: pending Lyme PCR: pending VDRL: pending Lyme IgG, IgM: pending West Nile PCR: pending EBV PCR Biofire: HHV 6 detected 08/10 BCx x2: pending Abx: Ceftriaxone 08/10 - Problems: #Encephalopathy #Leukocytosis #Hypercapnic respiratory failure: s/p intubation 08/10 52 yo M inmate of [facility] with history of bipolar 1 disorder, alcohol abuse, amphetamine abuse, previous suicide attempts, COPD who presented on 08/10 after being found unresponsive in his cell, now admitted with encephalopathy of unknown etiology. On presentation to the ED, HR 142, 96% on 4 L NC. Pt was unresponsive with upper extremity tremors and possible decorticate posturing with sternal rubbing. He was noted to be in afib with RVR. He was intubated due to his cognitive state. Labs showed WBC 14.5 (89% neutrophils), normal lactate 1.2, normal LFTs, procalcitonin < 0.05, CRP 1.06. UA negative. Utox negative. SARS-CoV-[address] head and CTA head/neck without acute findings. CXR showed lungs were clear. Pt was started on diltiazem drip and given a dose of ceftriaxone, loaded with Keppra. Neurology was consulted. EEG showed no evidence of epileptiform activity, so recommended discontinuation of Keppra. A lumbar puncture was performed, which showed 0 WBCs, 181 RBCs, glucose 92, protein 39.4. Additional CSF studies including Lyme PCR and antibodies, VDRL, West Nile PCR, EBV PCR were sent and are pending. CSF Biofire detected HHV6. HIV screen was sent. MRI brain and TTE pending. Unknown etiology of encephalopathy at this time. HHV-6 can be detected at high levels in PCR testing due to chromosomal integration, leading to a lifelong high viral load/PCR. This is estimated to occur in 1-2% of the population. Therefore, the positive predictive value is low and this may not represent true infection. In adults, HHV-6 encephalitis tends to occur due to reactivation in immunocompromised patients (ie HSCT patients). Pt does not have a known history of immunocompromise, although HIV screen is pending. Would expect to see elevated CSF WBCs (not seen here) and involvement of temporal lobe on MRI in HHV-6 encephalitis. Recommendations: -Follow-up HIV screen, CSF studies, blood cultures, MRSA swab -Ordered serum Lyme screen, RPR, West Nile IgM, HHV-6 PCR. Added on quantitative HHV-6 PCR to CSF. 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 -Empiric vanc, cefepime for now pending blood cultures -As discussed above, the positive HHV-6 result in the PCR panel may not represent true HHV-6 encephalitis, but rather chromosomal integration. If preferred, ok to start ganciclovir or foscarnet for now pending further work-up, although my suspicion for true infection is lower Discussed with ICU Will continue to follow. Please page [facility] Center with further questions. Consultation Information This patient recommendation is based on a telemedicine consult request which was completed asynchronously through chart review and information provided by the primary physician. The patient was not seen or examined today. The evaluation is consultative in nature and all patient care and treatment decisions can either be accepted or rejected by the patient's primary hospital-based treating physician using their own independent medical judgment for their patient. Staff Psychologist contact information: Please call [facility] [phone]. (Phone Number For Physician Use Only) Time Spent Reviewing Chart: 31+ minutes History of Present Illness Reason for Consultation: CSF with HHV-6 Requesting Physician: Dr. Delgadillo Attending Physician: Liborio Shaw MD History of Present Illness 52 yo M inmate of [facility] with history of bipolar 1 disorder, alcohol abuse, amphetamine abuse, previous suicide attempts, COPD who presented on 08/10 after being found unresponsive in his cell this AM. Per EMS, pt was having "full body tremors" at the time of their arrival. On presentation to the ED, HR 142, 96% on 4 L NC. Pt was unresponsive with upper extremity tremors and possible decorticate posturing with sternal rubbing. He was noted to be in afib with RVR. He was intubated due to his cognitive state. Labs showed WBC 14.5 (89% neutrophils), normal lactate 1.2, normal LFTs, procalcitonin < 0.05, CRP 1.06. UA negative. Utox negative. SARS-CoV-[address] head and CTA head/neck without acute findings. CXR showed lungs were clear. Pt was started on diltiazem drip and given a dose of ceftriaxone, loaded with Keppra. Neurology was consulted. EEG showed no evidence of epileptiform activity, so recommended discontinuation of Keppra. A lumbar puncture was performed, which showed 0 WBCs, 181 RBCs, glucose 92, protein 39.4. Additional CSF studies including Lyme PCR and antibodies, VDRL, West Nile PCR, EBV PCR were sent and are pending. CSF Biofire detected HHV6. HIV screen was sent. MRI brain and TTE pending. Allergies Allergy/AdvReac Type Severity Reaction Status Date / Time No Known Allergies Allergy Unverified 08/10/22 16:35 Home Medications Medication Instructions Recorded Confirmed Type Wixela Inhub 1 puff inhalation BID 08/10/22 08/10/22 History albuterol 90 mcg/actuation aerosol 2 mcg inhalation Q4H PRN Wheezing 08/10/22 08/10/22 History inhaler buspirone 10 mg PO BID 08/10/22 08/10/22 History lithium carbonate 450 mg PO BID 08/10/22 08/10/22 History risperidone 4 mg PO HS 08/10/22 08/10/22 History Patient History Medical History (Updated 08/10/22 @ 17:21 by Rufino Dong MD) Bipolar 1 disorder COPD (chronic obstructive pulmonary disease) Social History Smoking Status: Unknown if ever smoked Review of System Pt was not seen Physical Exam Physical Exam: Pt was not seen Results & Data Vital Signs (Past 12 Hours) Vital Signs Pulse Resp BP Pulse Ox O2 Del Method O2 Flow Rate FiO2 08/10/22 15:34 80 18 98 30 08/10/22 14:15 79 18 98 08/10/22 14:15 87/58 L 08/10/22 14:00 80 18 98 08/10/22 14:00 89/60 L 08/10/22 13:45 82 18 98 08/10/22 13:45 90/57 L 08/10/22 13:30 83 18 98 08/10/22 13:30 95/60 L 08/10/22 13:15 87 23 99 08/10/22 13:15 98/68 L 08/10/22 13:12 91 H 19 99 08/10/22 13:12 96/65 L 08/10/22 13:11 80/69 L 08/10/22 13:11 91 H 23 99 08/10/22 13:05 113/77 08/10/22 13:05 85 20 100 08/10/22 13:00 84 23 100 08/10/22 13:00 111/79 08/10/22 12:55 86 23 100 08/10/22 12:55 105/79 08/10/22 12:51 90 17 100 08/10/22 12:51 110/66 08/10/22 12:47 83 18 100 08/10/22 12:47 126/78 08/10/22 12:45 83 19 89 L 08/10/22 12:30 81 20 98 08/10/22 12:30 111/70 08/10/22 12:18 107/67 08/10/22 12:18 85 17 08/10/22 12:16 86 20 98 08/10/22 11:45 22 98 08/10/22 11:45 91/66 L 08/10/22 12:00 84 26 H 96 35 08/10/22 11:30 28 H 96/65 L 98 08/10/22 11:15 24 99/67 L 97 08/10/22 11:00 85 16 97/77 L 97 08/10/22 10:45 84 23 94/66 L 98 08/10/22 10:40 85 25 H 100/67 98 08/10/22 10:55 83 23 97 50 08/10/22 10:30 88 25 H 107/69 98 08/10/22 10:15 93 H 19 105/70 97 08/10/22 10:00 93 H 23 113/74 96 08/10/22 09:45 96 H 22 110/78 97 08/10/22 09:30 103 H 26 H 117/74 91 08/10/22 09:15 113 H 21 151/95 H 96 08/10/22 09:10 111 H 20 150/102 H 95 08/10/22 08:45 117 H 18 151/83 H 90 08/10/22 08:15 170 H 18 137/100 90 Mechanical Vent 08/10/22 09:36 91 08/10/22 08:10 141 H 18 96 50 08/10/22 08:48 115 H 08/10/22 07:51 142 H 22 125/89 96 Nasal Cannula 4 08/10/22 08:10 130 H Laboratory Results Short CBC 08/10/22 Range/Units 09:16 WBC 14.50 H (4.8-10.8) K/ul Hgb 14.1 (14.0-18.0) g/dl Hct 39.3 L (42.0-52.0) % Plt Count 239 (130-400) K/uL BMP 08/10/22 08/10/22 09:16 12:53 Sodium 137 Potassium 4.0 Chloride 108 H Carbon Dioxide 22 BUN 12 Creatinine 0.73 Glucose 153 H 120 H Calcium 8.1 L Liver Function 08/10/22 Range/Units 09:16 Total Bilirubin 1.0 (0.2-1.0) mg/dl AST 15 (13-39) U/L ALT 12 (7-52) U/L Alkaline Phosphatase 79 (34-104) U/L Albumin 3.9 (3.4-5.0) gm/dl Urine 08/10/22 Range/Units 09:00 Urine Color Yellow Urine Appearance Clear (Clear) Urine pH 6.5 (4.5-7.5) Ur Specific Superior 1.009 (1.000-1.030) Urine Protein Negative (Negative) Urine Glucose (UA) Negative (Negative) Diagnostic Findings Head CT 08/10/22 07:55 CT angio head w con, CT head/brain wo con, CT angio neck with con CLINICAL HISTORY: neuro deficit, acute stroke suspected TECHNIQUE: Contiguous axial CT images of the head were acquired from the base of the skull to the vertex without intravenous contrast administration. CT angiography of the head and neck was performed following intravenous administration of iodinated contrast. Coronal and sagittal MIPS were obtained from the axial data set and were submitted for review. Automated dose lowering techniques and/or adjustment according to patient size were utilized for this examination. All measurements were calculated based on NASCET criteria. CT DOSE: 1161.11 mGy.cm Comparison: None available at the time of this dictation. FINDINGS: CT head: There is no acute intracranial hemorrhage or evidence of acute territorial infarction. No shift of the midline structures, mass effect, or extra-axial abnormalities are shown. Extensive emphysema is seen. CTA Neck: A 3 vessel aortic arch is shown. There is no significant atherosclerotic plaque in the aortic arch or the origins of the innominate, left common carotid, and left subclavian arteries. The common carotid, external carotid, cervical segments of the internal carotid arteries, and the cervical segments of the vertebral arteries are patent without hemodynamically significant stenosis. The left vertebral artery is dominant. CTA Head: The anterior and posterior cerebral circulations are patent. origin of the right posterior cerebral artery is seen. IMPRESSION: 1. No acute intracranial hemorrhage, evidence of acute territorial infarction, or other acute intracranial disease process. 2. No occlusion, hemodynamically significant stenosis, or dissection in the major cervical arteries. 3. No occlusion, hemodynamically significant stenosis, aneurysm, dissection, or arteriovenous malformation in the major intracranial arteries. Assessment of stenosis of the internal carotid arteries is based on NASCET criteria. ACT 112: Negative or not required by law. Electronically signed by: Jarred Bob M.D. 08/10/2022 8:51 AM Head CTA 08/10/22 07:55 CT angio head w con, CT head/brain wo con, CT angio neck with con CLINICAL HISTORY: neuro deficit, acute stroke suspected TECHNIQUE: Contiguous axial CT images of the head were acquired from the base of the skull to the vertex without intravenous contrast administration. CT angiography of the head and neck was performed following intravenous administration of iodinated contrast. Coronal and sagittal MIPS were obtained from the axial data set and were submitted for review. Automated dose lowering techniques and/or adjustment according to patient size were utilized for this examination. All measurements were calculated based on NASCET criteria. CT DOSE: 1161.11 mGy.cm Comparison: None available at the time of this dictation. FINDINGS: CT head: There is no acute intracranial hemorrhage or evidence of acute territorial infarction. No shift of the midline structures, mass effect, or extra-axial abnormalities are shown. Extensive emphysema is seen. CTA Neck: A 3 vessel aortic arch is shown. There is no significant atherosclerotic plaque in the aortic arch or the origins of the innominate, left common carotid, and left subclavian arteries. The common carotid, external carotid, cervical segments of the internal carotid arteries, and the cervical segments of the vertebral arteries are patent without hemodynamically significant stenosis. The left vertebral artery is dominant. CTA Head: The anterior and posterior cerebral circulations are patent. origin of the right posterior cerebral artery is seen. IMPRESSION: 1. No acute intracranial hemorrhage, evidence of acute territorial infarction, or other acute intracranial disease process. 2. No occlusion, hemodynamically significant stenosis, or dissection in the major cervical arteries. 3. No occlusion, hemodynamically significant stenosis, aneurysm, dissection, or arteriovenous malformation in the major intracranial arteries. Assessment of stenosis of the internal carotid arteries is based on NASCET criteria. ACT 112: Negative or not required by law. Electronically signed by: Jarred Bob M.D. 08/10/2022 8:51 AM Neck CTA 08/10/22 07:55 CT angio head w con, CT head/brain wo con, CT angio neck with con CLINICAL HISTORY: neuro deficit, acute stroke suspected TECHNIQUE: Contiguous axial CT images of the head were acquired from the base of the skull to the vertex without intravenous contrast administration. CT angiography of the head and neck was performed following intravenous administration of iodinated contrast. Coronal and sagittal MIPS were obtained from the axial data set and were submitted for review. Automated dose lowering techniques and/or adjustment according to patient size were utilized for this examination. All measurements were calculated based on NASCET criteria. CT DOSE: 1161.11 mGy.cm Comparison: None available at the time of this dictation. FINDINGS: CT head: There is no acute intracranial hemorrhage or evidence of acute territorial infarction. No shift of the midline structures, mass effect, or extra-axial abnormalities are shown. Extensive emphysema is seen. CTA Neck: A 3 vessel aortic arch is shown. There is no significant atherosclerotic plaque in the aortic arch or the origins of the innominate, left common carotid, and left subclavian arteries. The common carotid, external carotid, cervical segments of the internal carotid arteries, and the cervical segments of the vertebral arteries are patent without hemodynamically significant stenosis. The left vertebral artery is dominant. CTA Head: The anterior and posterior cerebral circulations are patent. origin of the right posterior cerebral artery is seen. IMPRESSION: 1. No acute intracranial hemorrhage, evidence of acute territorial infarction, or other acute intracranial disease process. 2. No occlusion, hemodynamically significant stenosis, or dissection in the major cervical arteries. 3. No occlusion, hemodynamically significant stenosis, aneurysm, dissection, or arteriovenous malformation in the major intracranial arteries. Assessment of stenosis of the internal carotid arteries is based on NASCET criteria. ACT 112: Negative or not required by law. Electronically signed by: Jarred Bob M.D. 08/10/2022 8:51 AM Chest X-Ray 08/10/22 08:19 XR chest 1V portable CLINICAL HISTORY: post intub TECHNIQUE: Single frontal radiograph of the chest was obtained. Comparison: None available at the time of this dictation. FINDINGS: Endotracheal tube terminates 44 mm of the cordelia. The cardiomediastinal silhouette is normal. The lungs are clear. No evidence of pleural effusion or pneumothorax. IMPRESSION: Satisfactory position of endotracheal tube. ACT 112: Negative or not required by law. Electronically signed by: Jarred Bob M.D. 08/10/2022 8:33 AM KUB X-Ray 08/10/22 12:24 XR KUB pre MRI HISTORY: 52 years-old Male needs to be cleared prior to MRI COMPARISON: Chest radiograph of same day TECHNIQUE: KUB FINDINGS: Ascencio catheter is noted within the midline pelvis. There is an additional catheter within the right abdomen suggestive of a femoral line with distal tip overlying the L4 vertebral body. Distal tip of enteric tube projects over the gastric body. Nonobstructive bowel gas pattern. No urolith or acute fracture. IMPRESSION: 1. Nonobstructive bowel gas pattern. 2. Lines and tubes as above. ACT 112: Negative or not required by law. The above report was generated using voice recognition software. It may contain grammatical, syntax or spelling errors. Electronically signed by: Stuart Queen M.D. 08/10/2022 1:31 PM Medications Administered Current Inpatient Medications Enoxaparin Sodium (Enoxaparin Inj 40 Mg/0.4 Ml Syr) 40 mg SQ [facility] Stop: 09/10/22 08:59 Propofol (Diprivan) 1,000 mg in 100 mls @ 10.428 mls/hr IV .Q9H36M NIMISHA; Protocol Stop: 08/13/22 09:29 Last Titration: 08/10/22 14:49 Dose: 20 mcg/kg/min, 10.4 mls/hr Parenteral Electrolytes (Plasma-Lyte A Ph 7.4) 1,000 mls @ 80 mls/hr IV .[id number] NIMISHA Stop: 09/09/22 16:29 [place] Carbonate ([place] Carbonate 300 Mg Tab) 450 mg PO BID NIMISHA Stop: 09/09/22 20:59 Miscellaneous (Icu Protocol For Hyperglycemia) 1 each N/A Q6 NIMISHA Stop: 08/12/22 17:59 Miscellaneous Information (Pharmacist Discharge Med Rec Consult) 1 each N/A UD PRN PRN Reason: Consult Stop: 09/09/22 10:41 Miscellaneous Information (Patient's Allergy Info Needs Entered) 1 each N/A Q30M NIMISHA Stop: 09/09/22 16:29 Propofol (Propofol Bolus From Bag) 20 mg IV Q5M PRN PRN Reason: Sedation Stop: 08/13/22 09:20 (1) Altered mental status Altered mental status type: unspecified Qualified Code(s): R41.82 - Altered mental status, unspecified (2) Leukocytosis Leukocytosis type: unspecified Qualified Code(s): D72.829 - Elevated white blood cell count, unspecified
[2022-08-10] MEDS ORDERED: VANCOMYCIN CONSULT ACTIVE PRN (17:23)
--- NOTE | 2022-08-10 17:29 | Magnetic Resonance Report ---
MR brain wo con CLINICAL HISTORY: unresponsive, possible seizure vs stroke TECHNIQUE: Multiplanar and multisequence MR images of the brain were obtained without intravenous con trast. Comparison: Comparison is made to CTA head and neck 08/10/2022 FINDINGS: Exam is limited by patient motion. No abnormal restricted diffusion is identified. The white matter i s unremarkable. The ventricular system is normal in appearance. No mass is seen. There is no mass eff ect or midline shift. There is no evidence of acute intraparenchymal hemorrhage. No extra axial fluid collections are seen. The corpus callosum, pituitary gland, and cerebellar tonsils appear grossly un remarkable. Flow voids of the major intracranial arterial vessels are identified. The imaged portions of the para nasal sinuses, mastoid air cells, and orbits are unremarkable. IMPRESSION: No acute abnormality and in particular no evidence of acute infarct. ACT 112: Negative or not required by law. Electronically signed by: Jarred Bob M.D. 08/10/2022 5:28 PM
[2022-08-10] MEDS: PLASMA-LYTE A 1,000 ML IV SCH (17:55)
[2022-08-10] MEDS ORDERED: VANCOMYCIN HCL 1,750 MG in SODIUM CHLORIDE 0.9% 500 ML IV ONE (18:00)
[2022-08-10] MEDS: ICU Protocol for HYPERglycemia SCH (18:09)
[2022-08-10 19:09] LABS: Lyme Ab IgG w/WB Rflx Negative (Negative); Lyme Ab IgM w/WB Rflx Negative (Negative)
--- NOTE | 2022-08-10 19:27 | Electrocardiogram Report ---
Test Reason : Blood Pressure : / mmHG Vent. Rate : 094 BPM Atrial Rate : 094 BPM P-R Int : 128 ms QRS Dur : 088 ms QT Int : 362 ms P-R-T Axes : 066 074 083 degrees QTc Int : 452 ms Normal sinus rhythm Nonspecific T wave abnormality Abnormal ECG When compared with ECG of 10-AUG-2022 08:18, (unconfirmed) Sinus rhythm has replaced Atrial fibrillation Vent. rate has decreased BY 49 BPM Non-specific change in ST segment in Inferior leads Non-specific change in ST segment in Lateral leads Nonspecific T wave abnormality no longer evident in Inferior leads Nonspecific T wave abnormality, worse in Anterior leads Confirmed by Maninder Ren ([id number]) on 08/10/2022 7:27:01 PM Referred By: [facility] Confirmed By:Saeed Ren
--- NOTE | 2022-08-10 19:29 | Electrocardiogram Report ---
Test Reason : Blood Pressure : / mmHG Vent. Rate : 143 BPM Atrial Rate : 000 BPM P-R Int : 000 ms QRS Dur : 092 ms QT Int : 342 ms P-R-T Axes : 000 080 266 degrees QTc Int : 527 ms Poor data quality, interpretation may be adversely affected Atrial fibrillation with rapid ventricular response Nonspecific ST and T wave abnormality Abnormal ECG No previous ECGs available Confirmed by Maninder Ren ([id number]) on 08/10/2022 7:28:52 PM Referred By: [facility] Confirmed By:Saeed Ren
[2022-08-10] MEDS: CEFEPIME 2,000 MG in SYRINGE 0 ML IV SCH (19:36)
--- NOTE | 2022-08-10 20:02 | XCELERA ---
[id number] \\[id number]
[2022-08-10] MEDS: LITHIUM CARBONATE 300 MG TAB PO SCH (21:00)
[2022-08-10] MEDS: GANCICLOVIR SODIUM IV SCH (21:36)
[2022-08-10] MEDS: SODIUM CHLORIDE 0.9% IV SCH (21:36)
[2022-08-10 22:56] LABS: Rapid Plasma Reagin Nonreactive (Nonreactive)
[2022-08-11] MEDS: propofoL 1,000 MG/100 ML VIAL IV SCH ×5 (00:40→12:38)
[2022-08-11] MEDS: PROPOFOL BOLUS FROM BAG IV PRN ×2 (00:48→05:05)
[2022-08-11] MEDS: CEFEPIME 2,000 MG in SYRINGE 0 ML IV SCH ×3 (02:35→17:42)
[2022-08-11 05:06] LABS: Basophils # (auto) 0.02 K/uL (0-0.2); Basophils % (auto) 0.2 %; Eosinophils # (auto) 0.12 K/uL (0-0.50); Eosinophils % (auto) 1.3 %; Hematocrit (blood only) 32.7 % (42.0-52.0); Hemoglobin 11.4 g/dl (14.0-18.0); Immature Granulocytes # (auto) 0.03 K/uL (0.01-0.20); Immature Granulocytes % (auto) 0.3 %; Lymphocytes # (auto) 1.86 K/uL (1.2-3.4); Lymphocytes % (auto) 20.5 %; Mean Corpuscular Hemoglobin 32.9 pg (25.0-34.0); Mean Corpuscular Hgb Conc 34.9 g/dL (32.0-36.0); Mean Corpuscular Volume 94.2 fL (80.0-100.0); Mean Platelet Volume 8.3 fL (9.4-12.4); Monocytes # (auto) 0.96 K/uL (0.11-0.59); Monocytes % (auto) 10.6 %; Neutrophils # (auto) 6.07 K/uL (1.40-6.50); Neutrophils % (auto) 67.1 %; Platelet Count 211 K/uL (130-400); RDW Coefficient of Variation 12.8 % (11.5-14.5); RDW Standard Deviation 43.7 fL (36.4-46.3); Red Blood Count 3.47 M/uL (4.70-6.10); White Blood Count 9.06 K/ul (4.8-10.8)
[2022-08-11] MEDS ORDERED: fentaNYL citrate PF 100 MCG/2 ML VIAL IV STA (05:11)
[2022-08-11 05:23] LABS: Albumin Globulin Ratio 1.3 (0.9-2); Albumin Level 3.2 gm/dl (3.4-5.0); BUN Creatinine Ratio 11.6 (10-20); Bilirubin,Total 0.8 mg/dl (0.2-1.0); Calcium 8.2 mg/dl (8.6-10.3); Chol HDL Ratio 3.2 (0-5); Creatinine Clr Calc Pharmacy 97.2 ml/min; Est GFR (African American) 115.6 ml/min; Est GFR (Non-African American) 99.7 ml/min; Globulin 2.4 gm/dl (2.5-4.0); Phosphorus 2.8 mg/dl (2.5-4.9); Potassium 3.7 mmol/L (3.5-5.1); Total Protein 5.6 gm/dl (6.0-8.3)
[2022-08-11 05:44] LABS: INR 1.1 (0.9-1.1); Prothrombin Time 11.8 Seconds (9.0-12.0)
[2022-08-11] MEDS: PLASMA-LYTE A 1,000 ML IV SCH (06:23)
[2022-08-11] MEDS: VANCOMYCIN HCL 1,250 MG in SODIUM CHLORIDE 0.9% 250 ML IV SCH ×2 (06:23→17:42)
[2022-08-11] MEDS: ICU Protocol for HYPERglycemia SCH ×3 (07:03→12:47)
[2022-08-11 07:08] LABS: Estimated Average Glucose 97 mg/dl
--- NOTE | 2022-08-11 07:16 | Critical Care Progress Note ---
Date of Service August 11, 2022 Assessment & Plan (1) Human herpesvirus 6 encephalitis: Plan: Reason Critically Ill: 52-year-old male with acute encephalopathy PLAN: Neuro: Acute encephalopathy -Bio fire positive for human herpes virus 6: Discussed with ID -Neurology following -MRI reviewed -Wean propofol Fentanyl for possible extubation -Toxicology screen is negative, there are chemical intoxicants that do not show on routine toxicology testing such as synthetic cannabinoids and synthetic cathinone -It has been greater than 24 hours since the initial events, I believe the yield of testing for these substances is not FDA approved nor would we have high yield given the passage of time and treatment is uniformly supportive in nature Bipolar type I -[place] marginally low at 0.4 -Continue 450 mg lithium twice daily Resp: Hypercapnic respiratory failure -Presumptive secondary to encephalopathy -Wean to extubate today if possible CV: Atrial fibrillation with rapid response -Conversion to normal sinus rhythm with diltiazem which has been subsequently discontinued Fluids/Renal: Plasma-Lyte as maintenance fluid 80 mils per hour ID: Human herpes virus 6 encephalitis via bio fire PCR versus false positive -LP reviewed, glucose and protein largely unremarkable however there was increase in red cells without xanthochromia no WBCs -It did not appear to be a traumatic tap, if no significant improvement would possibly consider repeat LP in 48 to 72 hours to evaluate for evolution -HIV test ordered (per lab this is a send out and will take days to return final result), no report of immunocompromise -Continue antivirals until symptomatic improvement or HIV returns and is negative, await ID recommendations Heme: DVT prophylaxis: Lovenox 40 mg daily -Would recommend holding on day of subsequent LP if additional CSF studies needed Endocrine: ICU hyperglycemia protocol Vascular access: Peripheral IVs Code Status: Full code Disposition: ICU (2) Atrial fibrillation with RVR: (3) Bipolar 1 disorder: (4) COPD (chronic obstructive pulmonary disease): Admission and Anticipated Discharge Date Admission Date: August 10, 2022 Supervising Physician Co-Signing Physician Notes I have personally spent 35 minutes of critical care time in the direct management of this patient. This is a life/limb threatening event. This includes time spent evaluating patient, direct bedside care, chart review, placing orders, interpretation of diagnostic studies, discussion with consultants, patient, and/or family members regarding treatment decisions, as well as other required patient management activities. This time is exclusive of all separately billable procedures, and teaching time and separate from and in addition to any other critical care service time. Subjective Overnight required intermittent boluses for increased activities/possible agitation Physical Exam Physical Exam: General: Sedated. nontoxic. Skin: Warm, dry, Head: Atraumatic Ears, nose, mouth and throat: airway obscured by endotracheal tube Cardiovascular: Normal peripheral perfusion Respiratory: Ventilator settings reviewed Gastrointestinal: Non distended Musculoskeletal: No deformity Results & Data Results & Data Vital Signs (Past 12 Hours) Vital Signs Temp Pulse Resp BP Pulse Ox FiO2 08/11/22 07:00 63 18 94 08/11/22 07:00 82/54 L 08/11/22 06:45 69 18 93 08/11/22 06:45 82/53 L 08/11/22 06:30 73 18 96 08/11/22 06:30 86/56 L 08/11/22 06:15 77 18 99 08/11/22 06:15 102/65 08/11/22 06:00 83 32 H 100 08/11/22 06:00 108/71 08/11/22 05:46 106/69 08/11/22 05:46 79 23 100 08/11/22 05:45 76 19 98 08/11/22 05:30 76 18 100 08/11/22 05:30 98/65 L 08/11/22 05:15 81 20 100 08/11/22 05:15 111/72 08/11/22 05:00 87 23 100 08/11/22 05:00 119/69 08/11/22 04:45 67 18 97 08/11/22 04:45 102/77 08/11/22 04:30 64 18 98 08/11/22 04:30 90/62 L 08/11/22 04:15 62 18 96 08/11/22 04:15 87/59 L 08/11/22 04:04 81/55 L 08/11/22 04:04 62 18 95 08/11/22 04:03 82/54 L 08/11/22 04:03 63 18 96 08/11/22 04:00 62 18 94 08/11/22 04:00 80/52 L 08/11/22 03:45 64 18 95 08/11/22 03:45 82/54 L 08/11/22 03:30 66 18 99 08/11/22 03:30 84/59 L 08/11/22 03:15 68 18 100 08/11/22 03:15 93/62 L 08/11/22 03:00 69 18 100 08/11/22 03:00 90/60 L 08/11/22 02:45 69 18 97 08/11/22 02:45 90/61 L 08/11/22 02:30 66 18 95 08/11/22 02:30 80/56 L 08/11/22 02:15 67 18 95 08/11/22 02:15 89/60 L 08/11/22 02:00 68 18 94 08/11/22 02:00 82/53 L 08/11/22 01:45 69 18 94 08/11/22 01:45 83/54 L 08/11/22 01:30 70 18 95 08/10/22 22:43 76 08/11/22 04:00 30 08/11/22 00:00 30 08/10/22 20:00 30 08/11/22 04:13 65 18 94 10 08/10/22 20:00 37.1 C 08/10/22 22:58 75 18 94 30 08/10/22 19:49 72 18 95 30 Critical Care Results & Data Vital Signs (Past 12 Hours) Vital Signs Pulse Resp BP Pulse Ox FiO2 08/11/22 07:42 68 18 95 30 08/11/22 07:00 63 18 94 08/11/22 07:00 82/54 L 08/11/22 06:45 69 18 93 08/11/22 06:45 82/53 L 08/11/22 06:30 73 18 96 08/11/22 06:30 86/56 L 08/11/22 06:15 77 18 99 08/11/22 06:15 102/65 08/11/22 06:00 83 32 H 100 08/11/22 06:00 108/71 08/11/22 05:46 106/69 08/11/22 05:46 79 23 100 08/11/22 05:45 76 19 98 08/11/22 05:30 76 18 100 08/11/22 05:30 98/65 L 08/11/22 05:15 81 20 100 08/11/22 05:15 111/72 08/11/22 05:00 87 23 100 08/11/22 05:00 119/69 08/11/22 04:45 67 18 97 08/11/22 04:45 102/77 08/11/22 04:30 64 18 98 08/11/22 04:30 90/62 L 08/11/22 04:15 62 18 96 08/11/22 04:15 87/59 L 08/11/22 04:04 81/55 L 08/11/22 04:04 62 18 95 08/11/22 04:03 82/54 L 08/11/22 04:03 63 18 96 08/11/22 04:00 62 18 94 08/11/22 04:00 80/52 L 08/11/22 03:45 64 18 95 08/11/22 03:45 82/54 L 08/11/22 03:30 66 18 99 08/11/22 03:30 84/59 L 08/11/22 03:15 68 18 100 08/11/22 03:15 93/62 L 08/11/22 03:00 69 18 100 08/11/22 03:00 90/60 L 08/11/22 02:45 69 18 97 08/11/22 02:45 90/61 L 08/11/22 02:30 66 18 95 08/11/22 02:30 80/56 L 08/11/22 02:15 67 18 95 08/11/22 02:15 89/60 L 08/11/22 02:00 68 18 94 08/11/22 02:00 82/53 L 08/11/22 01:45 69 18 94 08/11/22 01:45 83/54 L 08/11/22 01:30 70 18 95 08/10/22 22:43 76 08/11/22 04:00 30 08/11/22 00:00 30 08/11/22 04:13 65 18 94 10 08/10/22 22:58 75 18 94 30 Lab & Micro Results (Past 24 Hours) RBC 3.47 M/uL (4.70-6.10) L 08/11/22 WBC 9.06 K/ul (4.8-10.8) 08/11/22 Hgb 11.4 g/dl (14.0-18.0) L 08/11/22 Hct 32.7 % (42.0-52.0) L 08/11/22 MCV 94.2 fL (80.0-100.0) 08/11/22 MCH 32.9 pg (25.0-34.0) 08/11/22 MCHC 34.9 g/dL (32.0-36.0) 08/11/22 RDW Standard Deviation 43.7 fL (36.4-46.3) 08/11/22 RDW Coefficient of Variation 12.8 % (11.5-14.5) 08/11/22 Plt Count 211 K/uL (130-400) 08/11/22 MPV 8.3 fL (9.4-12.4) L 08/11/22 Neutrophils (%) (Auto) 67.1 % 08/11/22 Lymphocytes (%) (Auto) 20.5 % 08/11/22 Monocytes # (Auto) 0.96 K/uL (0.11-0.59) H 08/11/22 Eosinophils # (Auto) 0.12 K/uL (0-0.50) 08/11/22 Immature Granulocyte % (Auto) 0.3 % 08/11/22 Neutrophils # (Auto) 6.07 K/uL (1.40-6.50) 08/11/22 Lymphocytes # (Auto) 1.86 K/uL (1.2-3.4) 08/11/22 Monocytes # (Auto) 0.96 K/uL (0.11-0.59) H 08/11/22 Eosinophils # (Auto) 0.12 K/uL (0-0.50) 08/11/22 Basophils # (Auto) 0.02 K/uL (0-0.2) 08/11/22 Immature Granulocyte # (Auto) 0.03 K/uL (0.01-0.20) 3 Na 142 mmol/L (136-145) 08/11/22 K 3.7 mmol/L (3.5-5.1) 08/11/22 Cl 112 mmol/L (98-107) H 08/11/22 CO2 25 mmol/L (21-32) 08/11/22 Anion Gap 5 (3-11) 08/11/22 BUN 10 mg/dl (6-23) 08/11/22 Creatinine 0.86 mg/dl (0.6-1.4) 08/11/22 Estimated GFR ( Amer) 115.6 ml/min 08/11/22 Estimated GFR (Non-Af Amer) 99.7 ml/min 08/11/22 BUN/Creatinine Ratio 11.6 (10-20) 08/11/22 Glu 111 mg/dl (70-99(Fasting)) H 08/11/22 Ca 8.2 mg/dl (8.6-10.3) L 08/11/22 Phosphorus Level 2.8 mg/dl (2.5-4.9) 08/11/22 Total Bilirubin 0.8 mg/dl (0.2-1.0) 08/11/22 AST 9 U/L (13-39) L 08/11/22 ALT 9 U/L (7-52) 08/11/22 Alkaline Phosphatase 59 U/L (34-104) 08/11/22 TP 5.6 gm/dl (6.0-8.3) L 08/11/22 Albumin 3.2 gm/dl (3.4-5.0) L 08/11/22 Globulin 2.4 gm/dl (2.5-4.0) L 08/11/22 Albumin/Globulin Ratio 1.3 (0.9-2) 08/11/22 Mg 2.0 mg/dl (1.7-2.4) 08/11/22 04:42 Calcium Level 8.2 mg/dl (8.6-10.3) L 08/11/22 04:42 Prothromb Time International Ratio 1.1 (0.9-1.1) 08/11/22 04:4 2 Microbiology 08/10/22 12:45 Gram Stain - Final Cerebral Spinal Fluid Diagnostic Findings (Past 24 Hours) Head CT 08/10/22 07:55 CT angio head w con, CT head/brain wo con, CT angio neck with con CLINICAL HISTORY: neuro deficit, acute stroke suspected TECHNIQUE: Contiguous axial CT images of the head were acquired from the base of the skull to the vertex without intravenous contrast administration. CT angiography of the head and neck was performed following intravenous administration of iodinated contrast. Coronal and sagittal MIPS were obtained from the axial data set and were submitted for review. Automated dose lowering techniques and/or adjustment according to patient size were utilized for this examination. All measurements were calculated based on NASCET criteria. CT DOSE: 1161.11 mGy.cm Comparison: None available at the time of this dictation. FINDINGS: CT head: There is no acute intracranial hemorrhage or evidence of acute territorial infarction. No shift of the midline structures, mass effect, or extra-axial abnormalities are shown. Extensive emphysema is seen. CTA Neck: A 3 vessel aortic arch is shown. There is no significant atherosclerotic plaque in the aortic arch or the origins of the innominate, left common carotid, and left subclavian arteries. The common carotid, external carotid, cervical segments of the internal carotid arteries, and the cervical segments of the vertebral arteries are patent without hemodynamically significant stenosis. The left vertebral artery is dominant. CTA Head: The anterior and posterior cerebral circulations are patent. origin of the right posterior cerebral artery is seen. IMPRESSION: 1. No acute intracranial hemorrhage, evidence of acute territorial infarction, or other acute intracranial disease process. 2. No occlusion, hemodynamically significant stenosis, or dissection in the major cervical arteries. 3. No occlusion, hemodynamically significant stenosis, aneurysm, dissection, or arteriovenous malformation in the major intracranial arteries. Assessment of stenosis of the internal carotid arteries is based on NASCET criteria. ACT 112: Negative or not required by law. Electronically signed by: Jarred Bob M.D. 08/10/2022 8:51 AM Head CTA 08/10/22 07:55 CT angio head w con, CT head/brain wo con, CT angio neck with con CLINICAL HISTORY: neuro deficit, acute stroke suspected TECHNIQUE: Contiguous axial CT images of the head were acquired from the base of the skull to the vertex without intravenous contrast administration. CT angiography of the head and neck was performed following intravenous administration of iodinated contrast. Coronal and sagittal MIPS were obtained from the axial data set and were submitted for review. Automated dose lowering techniques and/or adjustment according to patient size were utilized for this examination. All measurements were calculated based on NASCET criteria. CT DOSE: 1161.11 mGy.cm Comparison: None available at the time of this dictation. FINDINGS: CT head: There is no acute intracranial hemorrhage or evidence of acute territorial infarction. No shift of the midline structures, mass effect, or extra-axial abnormalities are shown. Extensive emphysema is seen. CTA Neck: A 3 vessel aortic arch is shown. There is no significant atherosclerotic plaque in the aortic arch or the origins of the innominate, left common carotid, and left subclavian arteries. The common carotid, external carotid, cervical segments of the internal carotid arteries, and the cervical segments of the vertebral arteries are patent without hemodynamically significant stenosis. The left vertebral artery is dominant. CTA Head: The anterior and posterior cerebral circulations are patent. origin of the right posterior cerebral artery is seen. IMPRESSION: 1. No acute intracranial hemorrhage, evidence of acute territorial infarction, or other acute intracranial disease process. 2. No occlusion, hemodynamically significant stenosis, or dissection in the major cervical arteries. 3. No occlusion, hemodynamically significant stenosis, aneurysm, dissection, or arteriovenous malformation in the major intracranial arteries. Assessment of stenosis of the internal carotid arteries is based on NASCET criteria. ACT 112: Negative or not required by law. Electronically signed by: Jarred Bob M.D. 08/10/2022 8:51 AM Neck CTA 08/10/22 07:55 CT angio head w con, CT head/brain wo con, CT angio neck with con CLINICAL HISTORY: neuro deficit, acute stroke suspected TECHNIQUE: Contiguous axial CT images of the head were acquired from the base of the skull to the vertex without intravenous contrast administration. CT angiography of the head and neck was performed following intravenous administration of iodinated contrast. Coronal and sagittal MIPS were obtained from the axial data set and were submitted for review. Automated dose lowering techniques and/or adjustment according to patient size were utilized for this examination. All measurements were calculated based on NASCET criteria. CT DOSE: 1161.11 mGy.cm Comparison: None available at the time of this dictation. FINDINGS: CT head: There is no acute intracranial hemorrhage or evidence of acute territorial infarction. No shift of the midline structures, mass effect, or extra-axial abnormalities are shown. Extensive emphysema is seen. CTA Neck: A 3 vessel aortic arch is shown. There is no significant atherosclerotic plaque in the aortic arch or the origins of the innominate, left common carotid, and left subclavian arteries. The common carotid, external carotid, cervical segments of the internal carotid arteries, and the cervical segments of the vertebral arteries are patent without hemodynamically significant stenosis. The left vertebral artery is dominant. CTA Head: The anterior and posterior cerebral circulations are patent. origin of the right posterior cerebral artery is seen. IMPRESSION: 1. No acute intracranial hemorrhage, evidence of acute territorial infarction, or other acute intracranial disease process. 2. No occlusion, hemodynamically significant stenosis, or dissection in the major cervical arteries. 3. No occlusion, hemodynamically significant stenosis, aneurysm, dissection, or arteriovenous malformation in the major intracranial arteries. Assessment of stenosis of the internal carotid arteries is based on NASCET criteria. ACT 112: Negative or not required by law. Electronically signed by: Jarred Bob M.D. 08/10/2022 8:51 AM Brain MRI 08/10/22 10:48 MR brain wo con CLINICAL HISTORY: unresponsive, possible seizure vs stroke TECHNIQUE: Multiplanar and multisequence MR images of the brain were obtained without intravenous contrast. Comparison: Comparison is made to CTA head and neck 08/10/2022 FINDINGS: Exam is limited by patient motion. No abnormal restricted diffusion is identified. The white matter is unremarkable. The ventricular system is normal in appearance. No mass is seen. There is no mass effect or midline shift. There is no evidence of acute intraparenchymal hemorrhage. No extra axial fluid collections are seen. The corpus callosum, pituitary gland, and cerebellar tonsils appear grossly unremarkable. Flow voids of the major intracranial arterial vessels are identified. The imaged portions of the paranasal sinuses, mastoid air cells, and orbits are unremarkable. IMPRESSION: No acute abnormality and in particular no evidence of acute infarct. ACT 112: Negative or not required by law. Electronically signed by: Jarred Bob M.D. 08/10/2022 5:28 PM KUB X-Ray 08/10/22 12:24 XR KUB pre MRI HISTORY: 52 years-old Male needs to be cleared prior to MRI COMPARISON: Chest radiograph of same day TECHNIQUE: KUB FINDINGS: Ascencio catheter is noted within the midline pelvis. There is an additional catheter within the right abdomen suggestive of a femoral line with distal tip overlying the L4 vertebral body. Distal tip of enteric tube projects over the gastric body. Nonobstructive bowel gas pattern. No urolith or acute fracture. IMPRESSION: 1. Nonobstructive bowel gas pattern. 2. Lines and tubes as above. ACT 112: Negative or not required by law. The above report was generated using voice recognition software. It may contain grammatical, syntax or spelling errors. Electronically signed by: Stuart Queen M.D. 08/10/2022 1:31 PM I & O Totals 24 Hours 08/10/22 08/11/22 08/12/22 06:59 06:59 06:59 Intake Total 2891.943 / 2891.943 374.827 / 374.827 Output Total 1260 / 1260 Balance 1631.943 / 1631.943 374.827 / 374.827 Cumulative 08/10/22 07:48 thru 08/11/22 08:22 Intake Total 3266.770 Output Total 1260 Balance 2006.770 RT Ventilator Mngmt (Last Documented) Ventilator Ordered Settings Ventilator Support Mode Assist Control 08/11/22 07:42 Respiratory Rate 18 08/11/22 07:42 Ventilator Tidal Volume 410 08/11/22 07:42 Setting Minute Ventilation 7.3 08/11/22 07:42 Positive End Expiratory 2 08/11/22 07:42 Pressure Fraction of Inspired Oxygen 30 08/11/22 07:42 Peak Inspiratory Flow 47 08/10/22 15:34 Machine Comment weaned to 40% 08/10/22 10:55 Ventilator - PT Measurements Respiratory Rate 18 Exhaled Tidal Volume 408 Minute Ventilation 7.3 Peak Inspiratory Airway 14 Pressure Plateau Pressure 9 Respiratory Cycle Inspiratory: 1:3.8 Expiratory Ratio Inspiratory Phase Time 0.7 End-Tidal CO2 30 Static Lung Compliance 58.29 Dynamic Lung Compliance 34.00 Normal Static Lung Compliance 48.00 Patient Measurements Comment ETT adjusted per per X-ray Coding Level of Care Code 59168 CRITICAL CARE 1ST 30-74M Diagnoses Human herpesvirus 6 encephalitis B10.01 Atrial fibrillation with RVR I48.91 Bipolar 1 disorder F31.9 COPD (chronic obstructive pulmonary disease) J44.9
[2022-08-11] MEDS: POTASSIUM CHLORIDE / WTR 10 MEQ/100 ML PLCT IV SCH ×2 (08:23→09:25)
[2022-08-11] MEDS: LITHIUM CARBONATE 300 MG TAB PO SCH ×2 (08:23→20:03)
[2022-08-11] MEDS: SODIUM CHLORIDE 0.9% IV SCH (08:31)
[2022-08-11] MEDS: GANCICLOVIR SODIUM IV SCH (08:31)
[2022-08-11] MEDS ORDERED: ENOXAPARIN INJ 40 MG/0.4 ML SYR SQ SCH (09:00)
[2022-08-11] MEDS ORDERED: [UNRECOGNIZED DRUG - OTHER] IV SCH (09:00)
[2022-08-11] MEDS ORDERED: PANTOprazole 40 MG in SYRINGE 0 ML IV SCH (11:00)
--- NOTE | 2022-08-11 13:03 | Infectious Disease Progress Nt ---
Date of Service August 11, 2022 Assessment & Plan (1) Altered mental status: (2) Leukocytosis: Plan Micro: 08/10 MRSA nares: negative 08/10 RPR nonreactive 08/10 Lyme screen: negative 08/10 HIV screen: pending 08/10 CSF Routine cx: NGTD. GS--no organisms Fungal cx: pending AFB smear neg, cx: pending Lyme PCR: pending VDRL: pending Lyme IgG, IgM: pending [place] Nile PCR: pending EBV PCR: pending Biofire: HHV 6 detected 08/10 BCx x2: NGTD Abx: Ganciclovir 08/10 - present Vanc 08/10 - present Cefepime 08/10 - present Ceftriaxone 08/10 Problems: #Encephalopathy: improved #Leukocytosis: resolved #Hypercapnic respiratory failure: likely 2/2 encephalopathy s/p intubation 08/10. Extubated 08/11 AM. 52 yo M inmate of [facility] with history of bipolar 1 disorder, alcohol abuse, amphetamine abuse, previous suicide attempts, COPD who presented on 08/10 after being found unresponsive in his cell, admitted with encephalopathy of unknown etiology. On presentation to the ED, HR 142, 96% on 4 L NC. Pt was unresponsive with upper extremity tremors and possible decorticate posturing with sternal rubbing. He was noted to be in afib with RVR. He was intubated due to his cognitive state. Labs showed WBC 14.5 (89% neutrophils), normal lactate 1.2, normal LFTs, procalcitonin < 0.05, CRP 1.06. UA negative. Utox negative. SARS-CoV-[address] head and CTA head/neck without acute findings. CXR showe d lungs were clear. Pt was started on diltiazem drip and given a dose of ceftriaxone, loaded with Keppra. Neurology was consulted. EEG showed no evidence of epileptiform activity, so recommended discontinuation of Keppra. A lumbar puncture was performed, which showed 0 WBCs, 181 RBCs, glucose 92, protein 39.4. Additional CSF studies including Lyme PCR and antibodies, VDRL, West Nile PCR, EBV PCR were sent and are pending. CSF Biofire detected HHV6. HIV screen was sent. 08/10 TTE was technically difficult, showed normal EF, small pericardial effusion. ID was consulted given findings of HHV-6 on CSF biofire. Unknown etiology of encephalopathy at this time. HHV-6 can be detected at high levels in PCR testing due to chromosomal integration, leading to a lifelong high viral load/PCR. This is estimated to occur in 1-2% of the population. Therefore, the positive predictive value is low and this may not represent true infection. In adults, HHV-6 encephalitis tends to occur due to reactivation in immunocompromised patients (ie HSCT patients). Pt does not have a known history of immunocompromise, although HIV screen is pending. Would expect to see elevated CSF WBCs (not seen here) and involvement of temporal lobe on MRI in HHV-6 encephalitis. MRI brain showed no acute abnormality, no evidence of acute infarct. He has rapidly improved and was extubated on 616 AM, and is drowsy but answering questions, asking for food/drink. Recommendations: -Follow-up HIV screen, CSF studies, blood cultures, West Nile IgM, serum HHV-6 PCR -Given the pt's rapid improvement, normal CSF WBC, and normal MRI, I think it is unlikely that the pt has HHV-6 encephalitis. As discussed above, the positive HHV-6 result in the PCR panel could represent chromosomal integration. Would favor discontinuing ganciclovir -HHV-6 PCR from the blood was sent out. Attempted to add on to CSF, but do not think it was successful. 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 -Can continue empiric vanc, cefepime for ~48 hours pending blood cultures Discussed with ICU. Please note that there will be no ID notes over the weekend. If questions or concerns arise, please contact the Infectious Disease Call Center and ask to speak with the covering ID physician. Dr. Virginia Montemayor will take over on Sunday. Admission and Anticipated Discharge Date Admission Date: August 10, 2022 Subjective Subsequent visit was provided via telemedicine using two-way real-time interactive telecommunication between the patient and the telemedicine provider. For the duration of the visit, the provider was performing the assessment from a different facility than the patient. This includesuse of bluetooth stethoscope forauscultationperformed by the telepresenter that the telemedicine provider can hear if described in the physical exam. Online Publisher contact information: Please call [facility] Center [phone]. (Phone Number For Physician Use Only) After establishing a telemedicine visit, patient was: Patient was verified with two unique identifiers, Patient/authorized rep acknowledged consent and understanding and Gave permission to continue telehealth session Time Spent with Patient: Subsequent => 25 min Extubated this morning Increasingly more awake, asking to eat/drink Denies pain. Does not recall the events causing him to be found down States he was in his usual state of health when he went to sleep that night Denies preceding fevers, cough, shortness of breath, abdominal pain, diarrhea Denies recent new medications. Denies known sick contacts States he has been tested for HIV in the past and was negative Review of System A complete ROS was performed and is negative except as mentioned in the HPI. Physical Exam Physical Exam: GEN: laying in bed in NAD, drowsy. HEENT: dry mucous membranes RESP: No increased work of breathing ABD: Mildly distended, firm. Non-tender to palpation. EXT: No joint abnormalities, no edema. Well-healed scarring on bilateral upper extremities SKIN: Erythema along R forearm seeming to track along vein NEURO: drowsy, answers questions appropriately PSYCH: calm Lines: R femoral CVC, PIV Results & Data Vital Signs (Past 12 Hours) Vital Signs Pulse Resp BP Pulse Ox O2 Del Method FiO2 08/11/22 08:00 Mechanical Vent 35 08/11/22 12:30 83 17 100 08/11/22 12:30 116/68 08/11/22 12:15 115/74 08/11/22 12:15 83 17 100 08/11/22 12:00 84 15 100 08/11/22 12:00 119/73 08/11/22 11:45 118/78 08/11/22 11:45 86 16 100 08/11/22 11:30 84 16 100 08/11/22 11:30 118/73 08/11/22 11:15 115/72 08/11/22 11:15 81 16 100 08/11/22 11:00 80 14 100 08/11/22 11:00 112/69 08/11/22 10:45 109/71 08/11/22 10:45 81 14 100 08/11/22 10:30 83 14 100 08/11/22 10:30 115/77 08/11/22 10:15 113/72 08/11/22 10:15 84 17 100 08/11/22 10:00 86 16 100 08/11/22 10:00 113/79 08/11/22 09:45 119/71 08/11/22 09:45 89 18 100 08/11/22 09:30 93 H 23 94 Room Air 08/11/22 09:30 126/83 08/11/22 09:00 74 19 96 08/11/22 09:00 110/95 08/11/22 08:45 91/58 L 08/11/22 08:45 67 22 95 08/11/22 08:30 66 18 97 08/11/22 08:30 86/53 L 08/11/22 08:15 96/64 L 08/11/22 08:15 69 18 100 08/11/22 08:00 68 18 100 Mechanical Vent 35 08/11/22 08:00 98/63 L 08/11/22 07:45 98/65 L 08/11/22 07:45 73 18 99 08/11/22 07:30 74 18 98 08/11/22 07:30 103/72 08/11/22 07:15 81/56 L 08/11/22 07:15 64 18 95 08/11/22 08:00 30 08/11/22 07:42 68 18 95 30 08/11/22 07:00 63 18 94 08/11/22 07:00 82/54 L 08/11/22 06:45 69 18 93 08/11/22 06:45 82/53 L 08/11/22 06:30 73 18 96 08/11/22 06:30 86/56 L 08/11/22 06:15 77 18 99 08/11/22 06:15 102/65 08/11/22 06:00 83 32 H 100 08/11/22 06:00 108/71 08/11/22 05:46 106/69 08/11/22 05:46 79 23 100 08/11/22 05:45 76 19 98 08/11/22 05:30 76 18 100 08/11/22 05:30 98/65 L 08/11/22 05:15 81 20 100 08/11/22 05:15 111/72 08/11/22 05:00 87 23 100 08/11/22 05:00 119/69 08/11/22 04:45 67 18 97 08/11/22 04:45 102/77 08/11/22 04:30 64 18 98 08/11/22 04:30 90/62 L 08/11/22 04:15 62 18 96 08/11/22 04:15 87/59 L 08/11/22 04:04 81/55 L 08/11/22 04:04 62 18 95 08/11/22 04:03 82/54 L 08/11/22 04:03 63 18 96 08/11/22 04:00 62 18 94 08/11/22 04:00 80/52 L 08/11/22 03:45 64 18 95 08/11/22 03:45 82/54 L 08/11/22 03:30 66 18 99 08/11/22 03:30 84/59 L 08/11/22 03:15 68 18 100 08/11/22 03:15 93/62 L 08/11/22 03:00 69 18 100 08/11/22 03:00 90/60 L 08/11/22 02:45 69 18 97 08/11/22 02:45 90/61 L 08/11/22 02:30 66 18 95 08/11/22 02:30 80/56 L 08/11/22 02:15 67 18 95 08/11/22 02:15 89/60 L 08/11/22 02:00 68 18 94 08/11/22 02:00 82/53 L 08/11/22 01:45 69 18 94 08/11/22 01:45 83/54 L 08/11/22 01:30 70 18 95 08/11/22 04:00 30 08/11/22 04:13 65 18 94 10 Laboratory Results Short CBC 08/11/22 Range/Units 04:42 WBC 9.06 (4.8-10.8) K/ul Hgb 11.4 L (14.0-18.0) g/dl Hct 32.7 L (42.0-52.0) % Plt Count 211 (130-400) K/uL BMP 08/10/22 08/11/22 12:53 04:42 Sodium 142 Potassium 3.7 Chloride 112 H Carbon Dioxide 25 BUN 10 Creatinine 0.86 Glucose 120 H 111 H Calcium 8.2 L Liver Function 08/11/22 Range/Units 04:42 Total Bilirubin 0.8 (0.2-1.0) mg/dl AST 9 L (13-39) U/L ALT 9 (7-52) U/L Alkaline Phosphatase 59 (34-104) U/L Albumin 3.2 L (3.4-5.0) gm/dl Diagnostic Findings Head CT 08/10/22 07:55 CT angio head w con, CT head/brain wo con, CT angio neck with con CLINICAL HISTORY: neuro deficit, acute stroke suspected TECHNIQUE: Contiguous axial CT images of the head were acquired from the base of the skull to the vertex without intravenous contrast administration. CT angiography of the head and neck was performed following intravenous administration of iodinated contrast. Coronal and sagittal MIPS were obtained from the axial data set and were submitted for review. Automated dose lowering techniques and/or adjustment according to patient size were utilized for this examination. All measurements were calculated based on NASCET criteria. CT DOSE: 1161.11 mGy.cm Comparison: None available at the time of this dictation. FINDINGS: CT head: There is no acute intracranial hemorrhage or evidence of acute territorial infarction. No shift of the midline structures, mass effect, or extra-axial abnormalities are shown. Extensive emphysema is seen. CTA Neck: A 3 vessel aortic arch is shown. There is no significant atherosclerotic plaque in the aortic arch or the origins of the innominate, left common carotid, and left subclavian arteries. The common carotid, external carotid, cervical segments of the internal carotid arteries, and the cervical segments of the vertebral arteries are patent without hemodynamically significant stenosis. The left vertebral artery is dominant. CTA Head: The anterior and posterior cerebral circulations are patent. origin of the right posterior cerebral artery is seen. IMPRESSION: 1. No acute intracranial hemorrhage, evidence of acute territorial infarction, or other acute intracranial disease process. 2. No occlusion, hemodynamically significant stenosis, or dissection in the albina or cervical arteries. 3. No occlusion, hemodynamically significant stenosis, aneurysm, dissection, or arteriovenous malformation in the major intracranial arteries. Assessment of stenosis of the internal carotid arteries is based on NASCET criteria. ACT 112: Negative or not required by law. Electronically signed by: Jarred Bob M.D. 08/10/2022 8:51 AM Head CTA 08/10/22 07:55 CT angio head w con, CT head/brain wo con, CT angio neck with con CLINICAL HISTORY: neuro deficit, acute stroke suspected TECHNIQUE: Contiguous axial CT images of the head were acquired from the base of the skull to the vertex without intravenous contrast administration. CT angiography of the head and neck was performed following intravenous administration of iodinated contrast. Coronal and sagittal MIPS were obtained from the axial data set and were submitted for review. Automated dose lowering techniques and/or adjustment according to patient size were utilized for this examination. All measurements were calculated based on NASCET criteria. CT DOSE: 1161.11 mGy.cm Comparison: None available at the time of this dictation. FINDINGS: CT head: There is no acute intracranial hemorrhage or evidence of acute territorial infarction. No shift of the midline structures, mass effect, or extra-axial abnormalities are shown. Extensive emphysema is seen. CTA Neck: A 3 vessel aortic arch is shown. There is no significant atherosclerotic plaque in the aortic arch or the origins of the innominate, left common carotid, and left subclavian arteries. The common carotid, external carotid, cervical segments of the internal carotid arteries, and the cervical segments of the vertebral arteries are patent without hemodynamically significant stenosis. The left vertebral artery is dominant. CTA Head: The anterior and posterior cerebral circulations are patent. origin of the right posterior cerebral artery is seen. IMPRESSION: 1. No acute intracranial hemorrhage, evidence of acute territorial infarction, or other acute intracranial disease process. 2. No occlusion, hemodynamically significant stenosis, or dissection in the major cervical arteries. 3. No occlusion, hemodynamically significant stenosis, aneurysm, dissection, or arteriovenous malformation in the major intracranial arteries. Assessment of stenosis of the internal carotid arteries is based on NASCET criteria. ACT 112: Negative or not required by law. Electronically signed by: Jarred Bob M.D. 08/10/2022 8:51 AM Neck CTA 08/10/22 07:55 CT angio head w con, CT head/brain wo con, CT angio neck with con CLINICAL HISTORY: neuro deficit, acute stroke suspected TECHNIQUE: Contiguous axial CT images of the head were acquired from the base of the skull to the vertex without intravenous contrast administration. CT angiography of the head and neck was performed following intravenous administration of iodinated contrast. Coronal and sagittal MIPS were obtained from the axial data set and were submitted for review. Automated dose lowering techniques and/or adjustment according to patient size were utilized for this examination. All measurements were calculated based on NASCET criteria. CT DOSE: 1161.11 mGy.cm Comparison: None available at the time of this dictation. FINDINGS: CT head: There is no acute intracranial hemorrhage or evidence of acute territorial infarction. No shift of the midline structures, mass effect, or extra-axial abnormalities are shown. Extensive emphysema is seen. CTA Neck: A 3 vessel aortic arch is shown. There is no significant atherosclerotic plaque in the aortic arch or the origins of the innominate, left common carotid, and left subclavian arteries. The common carotid, external carotid, cervical segments of the internal carotid arteries, and the cervical segments of the vertebral arteries are patent without hemodynamically significant stenosis. The left vertebral artery is dominant. CTA Head: The anterior and posterior cerebral circulations are patent. origin of the right posterior cerebral artery is seen. IMPRESSION: 1. No acute intracranial hemorrhage, evidence of acute territorial infarction, or other acute intracranial disease process. 2. No occlusion, hemodynamically significant stenosis, or dissection in the major cervical arteries. 3. No occlusion, hemodynamically significant stenosis, aneurysm, dissection, or arteriovenous malformation in the major intracranial arteries. Assessment of stenosis of the internal carotid arteries is based on NASCET criteria. ACT 112: Negative or not required by law. Electronically signed by: Jarred Bob M.D. 08/10/2022 8:51 AM Chest X-Ray 08/10/22 08:19 XR chest 1V portable CLINICAL HISTORY: post intub TECHNIQUE: Single frontal radiograph of the chest was obtained. Comparison: None available at the time of this dictation. FINDINGS: Endotracheal tube terminates 44 mm of the cordelia. The cardiomediastinal silhouette is normal. The lungs are clear. No evidence of pleural effusion or pneumothorax. IMPRESSION: Satisfactory position of endotracheal tube. ACT 112: Negative or not required by law. Electronically signed by: Jarred Bob M.D. 08/10/2022 8:33 AM Brain MRI 08/10/22 10:48 MR brain wo con CLINICAL HISTORY: unresponsive, possible seizure vs stroke TECHNIQUE: Multiplanar and multisequence MR images of the brain were obtained without intravenous contrast. Comparison: Comparison is made to CTA head and neck 08/10/2022 FINDINGS: Exam is limited by patient motion. No abnormal restricted diffusion is identified. The white matter is unremarkable. The ventricular system is normal in appearance. No mass is seen. There is no mass effect or midline shift. There is no evidence of acute intraparenchymal hemorrhage. No extra axial fluid collections are seen. The corpus callosum, pituitary gland, and cerebellar tonsils appear grossly unremarkable. Flow voids of the major intracranial arterial vessels are identified. The imaged portions of the paranasal sinuses, mastoid air cells, and orbits are unremarkable. IMPRESSION: No acute abnormality and in particular no evidence of acute infarct. ACT 112: Negative or not required by law. Electronically signed by: Jarred Bob M.D. 08/10/2022 5:28 PM KUB X-Ray 08/10/22 12:24 XR KUB pre MRI HISTORY: 52 years-old Male needs to be cleared prior to MRI COMPARISON: Chest radiograph of same day TECHNIQUE: KUB FINDINGS: Ascencio catheter is noted within the midline pelvis. There is an additional catheter within the right abdomen suggestive of a femoral line with distal tip overlying the L4 vertebral body. Distal tip of enteric tube projects over the gastric body. Nonobstructive bowel gas pattern. No urolith or acute fracture. IMPRESSION: 1. Nonobstructive bowel gas pattern. 2. Lines and tubes as above. ACT 112: Negative or not required by law. The above report was generated using voice recognition software. It may contain grammatical, syntax or spelling errors. Electronically signed by: Stuart Queen M.D. 08/10/2022 1:31 PM Medications Administered Current Inpatient Medications Enoxaparin Sodium (Enoxaparin Inj 40 Mg/0.4 Ml Syr) 40 mg SQ QAM [facility] Stop: 09/10/22 08:59 Last Admin: 08/11/22 08:24 Dose: 40 mg [place] Sodium ([place] Sodium 24 Mg/Ml Btl 250ml) 6,750 mg IV BID [facility] Stop: 09/10/22 08:59 Propofol (Diprivan) 1,000 mg in 100 mls @ 0 mls/hr IV .Q0M NIMISHA; Protocol Stop: 08/13/22 09:29 Last Titration: 08/11/22 12:38 Dose: Infused Parenteral Electrolytes (Plasma-Lyte A Ph 7.4) 1,000 mls @ 80 mls/hr IV .[id number] [facility] Stop: 09/09/22 16:29 Last Admin: 08/11/22 06:23 Dose: 80 mls/hr Cefepime HCl 2,000 mg/ Syringe 20 mls @ 5 mls/min IV Q8H [facility]; Protocol Stop: 08/12/22 17:59 Last Admin: 08/11/22 11:14 Dose: 5 mls/min Ganciclovir Sodium 374 mg/ (Sodium Chloride) 107.48 mls @ 107.48 mls/hr IV Q24H [facility]; Protocol Stop: 09/11/22 08:59 Vancomycin HCl 1,250 mg/ (Sodium Chloride) 275 mls @ 200 mls/hr IV Q12H [facility] Stop: 08/13/22 05:59 Last Infusion: 08/11/22 08:17 Dose: Infused Pantoprazole Sodium 40 mg/ (Syringe) 10 mls @ 5 mls/min IV DAILY@1100 [facility] Stop: 09/10/22 10:59 Last Admin: 08/11/22 11:14 Dose: 5 mls/min [place] Carbonate ([place] Carbonate 300 Mg Tab) 450 mg PO BID [facility] Stop: 09/09/22 20:59 Last Admin: 08/11/22 08:23 Dose: 450 mg Miscellaneous (Icu Protocol For Hyperglycemia) 1 each N/A Q6 [facility] Stop: 08/12/22 17:59 Last Admin: 08/11/22 12:47 Dose: Not Given Miscellaneous Information (Vancomycin Consult Active) 1 each N/A UD PRN PRN Reason: Consult Stop: 09/09/22 17:22 Propofol (Propofol Bolus From Bag) 20 mg IV Q5M PRN PRN Reason: Sedation Stop: 08/13/22 09:20 Last Admin: 08/11/22 05:05 Dose: 20 mg (1) Altered mental status Altered mental status type: unspecified Qualified Code(s): R41.82 - Altered mental status, unspecified (2) Leukocytosis Leukocytosis type: unspecified Qualified Code(s): D72.829 - Elevated white blood cell count, unspecified
--- NOTE | 2022-08-11 13:40 | Communication Note ---
Date of Service: August 11, 2022 13:30 Discussed with infectious disease. Patient has been extubated and is doing remarkably well, no recollection of the antecedent events leading to transport to hospital. However alert and oriented x3 and responsive. HIV is pending however the test performed is a send out and will likely be unavailable for several days. Discussed with additional Medical Center staff and will perform a rapid HIV, if this is negative and given the significant improvement in mental status I think the likelihood of active HHV-6 encephalitis is low and can discontinue antivirals especially given the high incidence of side effects with the antivirals. Question remaining would be the etiology of the elevated red blood cell count in the CSF. Technically it did not appear to be a traumatic tap, the lack of xanthochromia and given the fact that the timeframe from the initial event until the lumbar puncture was greater than 3 hours I think this would be unlikely to represent a sentinel bleed from any form of AVM or aneurysm. Additionally, the patient has a negative CT angiogram which greatly increases my confidence that the patient does not have a bleeding vascular anomaly. If the patient's mental condition were to worsen or have profound headache additional lumbar puncture or advanced angiography could be considered. I do not have an exact cause for the preceding events, however, sympathetic cannabinoids and synthetic cathione remain in the differential and unfortunately we will not be able to be conclusively ruled out by routine toxicological testing. I feel the patient is stable for downgrade out of the ICU at this time. Coding Level of Care Code None
[2022-08-11] MEDS ORDERED: METOPROLOL TARTRATE 1 MG/ML VIAL IV ONE (13:49)
[2022-08-11] MEDS ORDERED: METOPROLOL TARTRATE 1 MG/ML VIAL IV STA ×2 (13:52→14:14)
--- NOTE | 2022-08-11 14:59 | Pharmacy Report ---
Pharmacy PK ABX Note - Date of Service August 11, 2022 - Assessment and Plan Assessment 52 year old M receiving vancomycin and cefepime empirically. Current plan is ~48 hours of abx pending bcx results. Currently BCX with no growth after 24 hours. Day # 2 of antimicrobial therapy. Plan Vancomycin * Loading dose: 1750 mg IV x 1 administered last evening * Maintenance dose: 1250 mg IV every 12 hours * Regimen is predicted to achieve higher end of target AUC/MAURA of 400-600 mg/L.hr. * Level to be ordered if therapy continues past 48 hours Pharmacy will continue to follow and will adjust dose/frequency as necessary. Thank you. Pharmacy has transitioned to AUC monitoring for vancomycin. AUC/MAURA is the preferred PK/PD target and is associated with decreased risk of nephrotoxicity compared to traditional trough targets.
--- NOTE | 2022-08-11 15:12 | Hospitalist Progress Note ---
Date of Service August 11, 2022 Assessment & Plan (1) Unresponsive state: Plan: Intubated on admission and extubated this morning. Herpetic encephalitis is being ruled out. Appreciate neurology consultation and infectious disease consultation and recommendations. Brain MRI scan negative for CVA. He was given Keppra in the ED but this has been discontinued . No evidence of seizure activity and no past history of seizure disorder. Tox screen negative. (2) On mechanically assisted ventilation: Plan: Intubated in the ED. Subsequently extubated this morning, August 11. (3) Atrial fibrillation with RVR: Plan: Present on admission then converted to normal sinus rhythm. However, this recurred this afternoon before he could be transferred out of the ICU and was treated with metoprolol. He will remain on telemetry. Cardiac echo report noted. Normal ejection fraction with mild LVH. (4) Bipolar 1 disorder: Plan: Multiple previous suicide attempts. Treated with [place], buspar, and risperdal . (5) COPD (chronic obstructive pulmonary disease): Plan: Stable. Intubated on admission. Extubated this morning, August 11. Plan Eventual return to retirement. Hopefully within the next day or 2 if testing is negative and he remained stable Admission and Anticipated Discharge Date Admission Date: August 10, 2022 Subjective The patient was extubated this morning. He is lethargic. Prior to transfer out of the ICU he developed atrial fibrillation again with rapid ventricular response. This was treated with metoprolol. Cardiac echo report noted. Infectious disease report noted. Herpetic encephalopathy is in the process of being ruled out. He remains on ganciclovir for the time being. Custodial guards present states that likelihood of illicit drug use while in the retirement is high. Brain MRI scan negative for CVA. Cardiac echo report noted. Review of Systems Review of Systems: Patient is unable to answer any questions regarding review of systems at this time Physical Exam Physical Exam: General-lethargic but awake. HEENT-head atraumatic and normocephalic, pupils equal and reactive to light, extraocular muscles intact Neck-no lymphadenopathy or thyromegaly, trachea midline Chest-scattered bilateral rhonchi. No wheezing Cardiac-regular rate and rhythm, normal S1 and S2, at the time of my exam Abdomen-normal bowel sounds, nontender, no hepatosplenomegaly Extremities-no cyanosis, clubbing, or edema Neuro-cranial nerves II through XII intact, motor and sensory function within normal limits, strength symmetrical , no focal deficits Psych-difficult to assess due to lethargy Results & Data Results & Data Vital Signs (Past 12 Hours) Vital Signs Pulse Resp BP Pulse Ox O2 Del Method FiO2 08/11/22 14:43 122 H 111/80 08/11/22 13:55 155 H 123/84 08/11/22 08:00 Mechanical Vent 35 08/11/22 12:30 83 17 100 08/11/22 12:30 116/68 08/11/22 12:15 115/74 08/11/22 12:15 83 17 100 08/11/22 12:00 84 15 100 08/11/22 12:00 119/73 08/11/22 11:45 118/78 08/11/22 11:45 86 16 100 08/11/22 11:30 84 16 100 08/11/22 11:30 118/73 08/11/22 11:15 115/72 08/11/22 11:15 81 16 100 08/11/22 11:00 80 14 100 08/11/22 11:00 112/69 08/11/22 10:45 109/71 08/11/22 10:45 81 14 100 08/11/22 10:30 83 14 100 08/11/22 10:30 115/77 08/11/22 10:15 113/72 08/11/22 10:15 84 17 100 08/11/22 10:00 86 16 100 08/11/22 10:00 113/79 08/11/22 09:45 119/71 08/11/22 09:45 89 18 100 08/11/22 09:30 93 H 23 94 Room Air 08/11/22 09:30 126/83 08/11/22 09:00 74 19 96 08/11/22 09:00 110/95 08/11/22 08:45 91/58 L 08/11/22 08:45 67 22 95 08/11/22 08:30 66 18 97 08/11/22 08:30 86/53 L 08/11/22 08:15 96/64 L 08/11/22 08:15 69 18 100 08/11/22 08:00 68 18 100 Mechanical Vent 35 08/11/22 08:00 98/63 L 08/11/22 07:45 98/65 L 08/11/22 07:45 73 18 99 08/11/22 07:30 74 18 98 08/11/22 07:30 103/72 08/11/22 07:15 81/56 L 08/11/22 07:15 64 18 95 08/11/22 08:00 30 08/11/22 07:42 68 18 95 30 08/11/22 07:00 63 18 94 08/11/22 07:00 82/54 L 08/11/22 06:45 69 18 93 08/11/22 06:45 82/53 L 08/11/22 06:30 73 18 96 08/11/22 06:30 86/56 L 08/11/22 06:15 77 18 99 08/11/22 06:15 102/65 08/11/22 06:00 83 32 H 100 08/11/22 06:00 108/71 08/11/22 05:46 106/69 08/11/22 05:46 79 23 100 08/11/22 05:45 76 19 98 08/11/22 05:30 76 18 100 08/11/22 05:30 98/65 L 08/11/22 05:15 81 20 100 08/11/22 05:15 111/72 08/11/22 05:00 87 23 100 08/11/22 05:00 119/69 08/11/22 04:45 67 18 97 08/11/22 04:45 102/77 08/11/22 04:30 64 18 98 08/11/22 04:30 90/62 L 08/11/22 04:15 62 18 96 08/11/22 04:15 87/59 L 08/11/22 04:04 81/55 L 08/11/22 04:04 62 18 95 08/11/22 04:03 82/54 L 08/11/22 04:03 63 18 96 08/11/22 04:00 62 18 94 08/11/22 04:00 80/52 L 08/11/22 03:45 64 18 95 08/11/22 03:45 82/54 L 08/11/22 03:30 66 18 99 08/11/22 03:30 84/59 L 08/11/22 03:15 68 18 100 08/11/22 03:15 93/62 L 08/11/22 04:00 30 08/11/22 04:13 65 18 94 10 Laboratory Results 08/11/22 04:42 08/11/22 04:42 PG Care Time/CCT Total # of Minutes Spent Total Time Spent with Patient: Total time spent is greater than 50% in coordination of care (as documented) at patient's floor/unit and/or counseling patient: Coding Level of Care Code 32994 SUB INP/OBS CARE 3/50MIN Diagnoses Unresponsive state R41.89 On mechanically assisted ventilation Z99.11 Atrial fibrillation with RVR I48.91 Bipolar 1 disorder F31.9 COPD (chronic obstructive pulmonary disease) J44.9
[2022-08-11] MEDS ORDERED: POTASSIUM CHLORIDE CRTAB 20 MEQ TABCR PO STA (16:18)
[2022-08-11] MEDS ORDERED: ALBUTEROL HFA 8 GM INHALER INH PRN (16:28)
[2022-08-11] MEDS: MAGNESIUM OXIDE 400 MG TAB PO SCH (16:46)
[2022-08-11] MEDS: METOPROLOL TARTRATE 1 MG/ML VIAL IV PRN ×2 (17:42→20:05)
[2022-08-11] MEDS: METOPROLOL TARTRATE 50 MG TAB PO SCH (18:18)
[2022-08-11] MEDS: FLUTICASONE/VILANTEROL 100/25MCG 14 PUFFS/INHALER INH SCH (20:02)
[2022-08-11] MEDS: busPIRone 5 MG TAB PO SCH (20:03)
[2022-08-11] MEDS: risperiDONE 2 MG TABLET PO SCH (20:04)
[2022-08-11] MEDS ORDERED: METOPROLOL TARTRATE 25 MG TAB PO SCH (21:00)
[2022-08-11] MEDS ORDERED: LITHIUM CARBONATE 450 MG PO SCH (21:00)
[2022-08-12] MEDS: CEFEPIME 2,000 MG in SYRINGE 0 ML IV SCH (02:28)
[2022-08-12] MEDS ORDERED: SODIUM CHLORIDE 0.9% 1000ML 500 ML IV ONE ×2 (02:46→20:19)
[2022-08-12 04:37] LABS: Basophils # (auto) 0.05 K/uL (0-0.2); Basophils % (auto) 0.6 %; Eosinophils # (auto) 0.16 K/uL (0-0.50); Eosinophils % (auto) 2.1 %; Hematocrit (blood only) 33.8 % (42.0-52.0); Hemoglobin 11.5 g/dl (14.0-18.0); Immature Granulocytes # (auto) 0.02 K/uL (0.01-0.20); Immature Granulocytes % (auto) 0.3 %; Lymphocytes # (auto) 1.71 K/uL (1.2-3.4); Lymphocytes % (auto) 22.1 %; Mean Corpuscular Volume 97.1 fL (80.0-100.0); Mean Platelet Volume 8.4 fL (9.4-12.4); Monocytes # (auto) 0.76 K/uL (0.11-0.59); Monocytes % (auto) 9.8 %; Neutrophils # (auto) 5.03 K/uL (1.40-6.50); Neutrophils % (auto) 65.1 %; Platelet Count 213 K/uL (130-400); RDW Coefficient of Variation 12.4 % (11.5-14.5); RDW Standard Deviation 44.1 fL (36.4-46.3); Red Blood Count 3.48 M/uL (4.70-6.10); White Blood Count 7.73 K/ul (4.8-10.8)
[2022-08-12 04:43] LABS: Albumin Globulin Ratio 1.3 (0.9-2); Albumin Level 3.2 gm/dl (3.4-5.0); BUN Creatinine Ratio 10.3 (10-20); Bilirubin,Total 0.9 mg/dl (0.2-1.0); Calcium 8.4 mg/dl (8.6-10.3); Creatinine Clr Calc Pharmacy 96.1 ml/min; Est GFR (Non-African American) 99.2 ml/min; Globulin 2.4 gm/dl (2.5-4.0); Phosphorus 2.6 mg/dl (2.5-4.9); Potassium 3.8 mmol/L (3.5-5.1); Total Protein 5.6 gm/dl (6.0-8.3)
[2022-08-12 04:58] LABS: INR 1.1 (0.9-1.1)
[2022-08-12] MEDS ORDERED: ENOXAPARIN 1 MG/KG SQ SCH (07:45)
[2022-08-12] MEDS: VANCOMYCIN HCL 1,250 MG in SODIUM CHLORIDE 0.9% 250 ML IV SCH (07:50)
[2022-08-12] MEDS: ENOXAPARIN 80 MG/0.8 ML SYR SQ SCH ×2 (08:58→21:15)
[2022-08-12] MEDS: busPIRone 5 MG TAB PO SCH ×2 (08:58→21:12)
[2022-08-12] MEDS ORDERED: SODIUM CHLORIDE 0.9% IV SCH (09:00)
[2022-08-12] MEDS ORDERED: GANCICLOVIR SODIUM IV SCH (09:00)
[2022-08-12] MEDS: MAGNESIUM OXIDE 400 MG TAB PO SCH (09:00)
[2022-08-12] MEDS: METOPROLOL TARTRATE 25 MG TAB PO SCH ×2 (09:10→21:12)
[2022-08-12] MEDS: METOPROLOL TARTRATE 50 MG TAB PO SCH (09:11)
[2022-08-12] MEDS: LITHIUM CARBONATE 300 MG TAB PO SCH ×2 (09:20→21:13)
--- NOTE | 2022-08-12 11:47 | Cardiology Consultation ---
Date of Consultation August 12, 2022 Assessment & Plan (1) Atrial fibrillation with rapid ventricular response: -would continue to use metoprolol tartrate for rate control. -continue therapeutic Lovenox -do not feel that anti arrhythmic therapy is indicated at this time. -hopefully will convert to sinus rhythm as his clinical status improves. History of Present Illness Attending Physician: Ravindra Ha MD History of Present Illness Mr. Miller is a 52 year old male admitted August 10 after being found unresponsive in his cell. On arrival to the emergency room, the patient was in atrial fibrillation with a rapid ventricular response. He converted to sinus rhythm after starting intravenous diltiazem. However, his dysrhythmia recurred yesterday. This consultation was ordered to assist in his management. The patient was interviewed at the bedside. He is currently in atrial fibrillation with a controlled ventricular response. He denies palpitations, chest discomfort, and shortness of breath. He has never known of atrial fibrillation previously, however, his mentation is questionable. An echocardiogram performed during his hospitalization noted normal systolic function with ejection fraction of 60-65% without wall motion abnormalities. There was mild LVH. Currently, patient is resting comfortably in bed without complaints. Past medical and surgical history 1. Paroxysmal atrial fibrillation 2. COPD 3. Bipolar disorder 4. Substance abuse Social history Incarcerated at [facility] No tobacco alcohol Family history Noncontributory Review systems Unreliable Allergies Allergy/AdvReac Type Severity Reaction Status Date / Time No Known Allergies Allergy Unverified 08/10/22 16:35 Home Medications Medication Instructions Recorded Confirmed Type Wixela Inhub 1 puff inhalation BID 08/10/22 08/10/22 History albuterol 90 mcg/actuation aerosol 2 mcg inhalation Q4H PRN Wheezing 08/10/22 08/10/22 History inhaler buspirone 10 mg PO BID 08/10/22 08/10/22 History lithium carbonate 450 mg PO BID 08/10/22 08/10/22 History risperidone 4 mg PO HS 08/10/22 08/10/22 History Patient History Medical History Bipolar 1 disorder COPD (chronic obstructive pulmonary disease) Social History Smoking Status: Unknown if ever smoked Communication Ability: Unable Current Living Situation: Other Current Living Situation Comment: Prisoner Physical Exam Physical Exam: In general is well-developed well-nourished male in no acute distress. HEENT exam is negative. Neck is supple with full carotid upstrokes. No obvious carotid bruits. Jugular venous pressure is difficult to assess. Cardiovascular exam reveals a regular rhythm with distant heart sounds. No obvious murmurs. Lungs are clear without rales, rhonchi or wheezes. Abdomen is soft without bruits. Extremities reveal intact radial artery pulses bilaterally. There is no peripheral edema. Results & Data Vital Signs (Past 12 Hours) Vital Signs Temp Pulse Resp BP Pulse Ox O2 Del Method O2 Flow Rate 08/12/22 11:00 83 18 87/63 L 92 Nasal Cannula 2 08/12/22 10:56 94 H 16 91/69 L 90 Nasal Cannula 2 08/12/22 10:00 96 H 16 97/70 L 95 Nasal Cannula 2 08/12/22 09:00 112 H 18 94/62 L 93 Nasal Cannula 2 08/12/22 08:58 105 H 16 93/70 L 94 Nasal Cannula 2 08/12/22 08:07 113 H 16 101/70 94 Nasal Cannula 2 08/12/22 07:30 101 H 21 92/69 L 95 Nasal Cannula 2 08/12/22 07:15 107 H 17 88/66 L 97 Nasal Cannula 2 08/12/22 07:00 102 H 19 92/63 L 91 Nasal Cannula 2 08/12/22 08:00 104 H 08/12/22 08:00 36.9 C Laboratory Results CBC notes hemoglobin 11.5 hematocrit 33.8, white count 7.7, platelet count 213 1000. Electrolytes note a sodium 144, potassium 3.8, chloride 113, bicarb 25, BUN 9, creatinine 0.87, glucose of 88. High sensitivity troponin is less than 2.3. Magnesium level is normal at 2.0. TSH is normal 1.096 with a T4 1.24. Diagnostic Findings EKG notes atrial fibrillation with PVCs or aberrant beats. Nonspecific ST and T-wave abnormality. Echocardiogram notes normal systolic function with ejection fraction of 60-65%. There was mild LVH. Chest x-ray shows no acute disease. PG Care Time/CCT Total # of Minutes Spent Total Time Spent with Patient: Total time spent is greater than 50% in coordination of care (as documented) at patient's floor/unit and/or counseling patient: Coding Level of Care Code 62498 IN/OBS CONSULT LVL 4,60M Diagnoses Atrial fibrillation with rapid ventricular response I48.91
--- NOTE | 2022-08-12 13:29 | Electrocardiogram Report ---
Test Reason : Blood Pressure : / mmHG Vent. Rate : 100 BPM Atrial Rate : 416 BPM P-R Int : 000 ms QRS Dur : 088 ms QT Int : 340 ms P-R-T Axes : 000 061 080 degrees QTc Int : 438 ms Atrial fibrillation with premature ventricular or aberrantly conducted complexes Nonspecific ST and T wave abnormality Abnormal ECG When compared with ECG of 10-AUG-2022 10:17, Atrial fibrillation has replaced Sinus rhythm Confirmed by Cong Ricks ([id number]) on 08/12/2022 1:28:54 PM Referred By: [facility] Confirmed By:Cong Ricks
--- NOTE | 2022-08-12 14:34 | Hospitalist Progress Note ---
Date of Service August 12, 2022 Assessment & Plan (1) Altered mental status: Plan: Unresponsive on admission. Possible toxic encephalopathy. Herpetic encephalitis was entertained but has been ruled out. Antivirals have been discontinued. All cultures negative. Antibiotics have been discontinued. There is a possibility this was toxic encephalopathy from illicit drugs taken at the detention (2) Atrial fibrillation with rapid ventricular response: Plan: Currently treated with metoprolol. Cardiac echo reveals normal ejection fraction. Cardiology consultation appreciated. No antiarrhythmic therapy indicated at this time except for metoprolol. Continue telemetry. Therapeutic Lovenox ordered (3) COPD (chronic obstructive pulmonary disease): Plan: Stable. Nebulizer treatments (4) Bipolar 1 disorder: Plan: Stable. 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 Hopefully early next week Admission and Anticipated Discharge Date Admission Date: August 10, 2022 Subjective The patient is awake and seems to be slightly lethargic but better than yesterday. Family members are in attendance. He is in atrial fibrillation with somewhat rapid ventricular rate. Cardiology consultation requested and noted. He is on metoprolol at this time. Therapeutic Lovenox has been ordered. Thyroid panel pending. Cardiac echo reveals normal ejection fraction with mild LVH. Hopefully he will convert back to normal sinus rhythm. Review of Systems Review of Systems: Constitutional-no fever or chills ENT-no blurred vision, no double vision, no epistaxis, no sore throat Respiratory-no cough, no wheezing, no shortness of breath Cardiac-no palpitations, no chest pain, no syncope GI-no nausea, vomiting, diarrhea, melena, hematochezia -no urinary retention, no urinary incontinence, no dysuria, no hematuria Musculoskeletal-no joint pain, no muscle tenderness Skin-no bruising, no rashes, no pruritus Neuro-no isolated weakness, no paresthesia, no weakness Psych-no depression, no anxiety Physical Exam Physical Exam: General-alert but somewhat lethargic. Oriented x2. s HEENT-head atraumatic and normocephalic, pupils equal and reactive to light, ex traocular muscles intact Neck-no lymphadenopathy or thyromegaly, trachea midline Chest-clear to auscultation percussion. No rales, wheezing or rhonchi Cardiac-mildly tachycardic irregular rate. Normal S1 and S2, no murmurs Abdomen-normal bowel sounds, nontender, no hepatosplenomegaly Extremities-no cyanosis, clubbing, or edema Neuro-cranial nerves II through XII intact, motor and sensory function within normal limits, strength symmetrical , no focal deficits Psych-flat affect Results & Data Results & Data Vital Signs (Past 12 Hours) Vital Signs Temp Pulse Resp BP Pulse Ox O2 Del Method O2 Flow Rate 08/12/22 12:00 36.9 C 08/12/22 11:56 111 H 18 101/69 94 Nasal Cannula 2 08/12/22 11:00 83 18 87/63 L 92 Nasal Cannula 2 08/12/22 10:56 94 H 16 91/69 L 90 Nasal Cannula 2 08/12/22 10:00 96 H 16 97/70 L 95 Nasal Cannula 2 08/12/22 09:00 112 H 18 94/62 L 93 Nasal Cannula 2 08/12/22 08:58 105 H 16 93/70 L 94 Nasal Cannula 2 08/12/22 08:07 113 H 16 101/70 94 Nasal Cannula 2 08/12/22 07:30 101 H 21 92/69 L 95 Nasal Cannula 2 08/12/22 07:15 107 H 17 88/66 L 97 Nasal Cannula 2 08/12/22 07:00 102 H 19 92/63 L 91 Nasal Cannula 2 08/12/22 08:00 104 H 08/12/22 08:00 36.9 C Laboratory Results 08/12/22 04:00 08/12/22 04:01 PG Care Time/CCT Total # of Minutes Spent Total Time Spent with Patient: Total time spent is greater than 50% in coordination of care (as documented) at patient's floor/unit and/or counseling patient: Coding Level of Care Code 03820 SUB INP/OBS CARE 3/50MIN Diagnoses Altered mental status R41.82 Altered mental status type: unspecified Atrial fibrillation with rapid ventricular response I48.91 COPD (chronic obstructive pulmonary disease) J44.9 Bipolar 1 disorder F31.9 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
[2022-08-12] MEDS: risperiDONE 2 MG TABLET PO SCH (21:15)
[2022-08-12] MEDS: FLUTICASONE/VILANTEROL 100/25MCG 14 PUFFS/INHALER INH SCH (21:17)
[2022-08-13] MEDS ORDERED: SODIUM CHLORIDE 0.9% 1000ML 500 ML IV ONE (04:52)
[2022-08-13] MEDS: METOPROLOL TARTRATE 1 MG/ML VIAL IV PRN (05:33)
[2022-08-13 06:48] LABS: Basophils # (auto) 0.04 K/uL (0-0.2); Basophils % (auto) 0.5 %; Eosinophils # (auto) 0.21 K/uL (0-0.50); Eosinophils % (auto) 2.6 %; Hematocrit (blood only) 35.4 % (42.0-52.0); Hemoglobin 12.2 g/dl (14.0-18.0); Immature Granulocytes # (auto) 0.04 K/uL (0.01-0.20); Immature Granulocytes % (auto) 0.5 %; Lymphocytes # (auto) 1.93 K/uL (1.2-3.4); Lymphocytes % (auto) 23.7 %; Mean Corpuscular Hemoglobin 32.8 pg (25.0-34.0); Mean Corpuscular Hgb Conc 34.5 g/dL (32.0-36.0); Mean Corpuscular Volume 95.2 fL (80.0-100.0); Mean Platelet Volume 8.6 fL (9.4-12.4); Monocytes # (auto) 0.72 K/uL (0.11-0.59); Monocytes % (auto) 8.8 %; Neutrophils # (auto) 5.22 K/uL (1.40-6.50); Neutrophils % (auto) 63.9 %; Platelet Count 230 K/uL (130-400); RDW Coefficient of Variation 11.9 % (11.5-14.5); RDW Standard Deviation 41.8 fL (36.4-46.3); Red Blood Count 3.72 M/uL (4.70-6.10); White Blood Count 8.16 K/ul (4.8-10.8)
[2022-08-13 07:07] LABS: Albumin Globulin Ratio 1.3 (0.9-2); Albumin Level 3.2 gm/dl (3.4-5.0); BUN Creatinine Ratio 14.7 (10-20); Bilirubin,Total 0.5 mg/dl (0.2-1.0); Calcium 8.4 mg/dl (8.6-10.3); Creatinine Clr Calc Pharmacy 111.5 ml/min; Est GFR (African American) 122.2 ml/min; Est GFR (Non-African American) 105.5 ml/min; Globulin 2.4 gm/dl (2.5-4.0); Magnesium 1.9 mg/dl (1.7-2.4); Potassium 3.5 mmol/L (3.5-5.1); Total Protein 5.6 gm/dl (6.0-8.3)
[2022-08-13 07:15] LABS: INR 1.1 (0.9-1.1); Prothrombin Time 11.5 Seconds (9.0-12.0)
[2022-08-13] MEDS: ENOXAPARIN 80 MG/0.8 ML SYR SQ SCH ×2 (09:10→19:19)
[2022-08-13] MEDS: METOPROLOL TARTRATE 25 MG TAB PO SCH (09:10)
[2022-08-13] MEDS: LITHIUM CARBONATE 300 MG TAB PO SCH ×2 (09:11→19:21)
[2022-08-13] MEDS: MAGNESIUM OXIDE 400 MG TAB PO SCH (09:12)
[2022-08-13] MEDS: busPIRone 5 MG TAB PO SCH (09:17)
[2022-08-13] MEDS ORDERED: POTASSIUM CHLORIDE CRTAB 20 MEQ TABCR PO STA (10:11)
[2022-08-13] MEDS ORDERED: METOPROLOL TARTRATE 25 MG TAB PO ONE (10:14)
--- NOTE | 2022-08-13 10:42 | XRay Report ---
SINGLE VIEW CHEST CLINICAL HISTORY: Hypoxia. FINDINGS: An AP, portable, upright chest radiograph is compared to study dated 08/10/2022. An endotrac heal tube has been removed. The cardiomediastinal silhouette is top normal for projection. There are increasing bibasilar airspace opacities. No large pleural effusion or pneumothorax is seen. The bony thorax is grossly intact. IMPRESSION: 1. An endotracheal tube has been removed. 2. There are increasing bibasilar airspace opacities. This could represent atelectasis and/or pneumon ia/aspiration pneumonitis. Clinical correlation will be required and radiographic follow-up to resolu tion is recommended. ACT 112: Negative or not required by law. Electronically signed by: Rufino Young M.D. 08/13/2022 10:41 AM
[2022-08-13 11:03] LABS: D Dimer 2380 ug/L FEU (0-500)
[2022-08-13] MEDS ORDERED: OPTIRAY 320 125ml IV ONE (12:09)
--- NOTE | 2022-08-13 12:31 | CT Scan Report ---
CT ANGIOGRAM OF THE CHEST CLINICAL HISTORY: Hypoxia. Elevated d-dimer. COMPARISON STUDY: Chest x-ray dated 08/13/2022. TECHNIQUE: Following the IV administration of 120 cc of Optiray 320, CT angiogram of the chest was pe rformed from the upper abdomen to the thoracic inlet utilizing the pulmonary embolus protocol. Images are reviewed in the axial, sagittal, and coronal planes. 3-D MIPS images are created and assessed. I V contrast was administered without complication. A dose lowering technique was utilized adhering to the principles of ALARA. The examination is compromised by motion artifact. CT DOSE: 647.71 mGy.cm FINDINGS: Thyroid: Imaged portions of the thyroid gland are normal in size and attenuation. Thoracic aorta: The thoracic aorta is normal in caliber and demonstrates standard 3-vessel arch anato my. No dissection is seen. Pulmonary vasculature: The pulmonary trunk is normal in caliber. There is thrombus within lobar branc hes of the right upper lobe pulmonary artery which extend into segmental and subsegmental branches. T here are segmental and subsegmental pulmonary emboli within branches of the right middle lobe pulmona ry artery. There are also likely small segmental and subsegmental pulmonary emboli within branches of both lower lobe pulmonary arteries. The lower lobe vessels are not well visualized due to significan t motion artifact. Heart: The heart is top normal in size noting a small pericardial effusion. Lungs and pleural spaces: Evaluation of the lung parenchyma is degraded by motion artifact. Advanced emphysematous change is noted. The trachea and central airways appear clear. There are small pleural effusions with dependent consolidation. Mediastinum: There is no mediastinal lymphadenopathy. [place]: Clear. Axillae: There is no axillary lymphadenopathy. Upper abdomen: Partially visualized upper abdominal viscera is within normal limits. Skeletal structures: No lytic or blastic bony lesions are seen. IMPRESSION: 1. Pulmonary emboli as above. 2. Small pleural effusions with dependent consolidation. This could represent atelectasis versus pneu monia/aspiration and clinical correlation will be required. Radiographic follow-up to resolution is r ecommended. 3. Advanced emphysema. 4. Additional findings as above. ACT 112: Negative or not required by law. Electronically signed by: Rufino Young M.D. 08/13/2022 12:28 PM
--- NOTE | 2022-08-13 15:15 | Hospitalist Progress Note ---
Date of Service August 13, 2022 Assessment & Plan (1) Altered mental status: Plan: COMMERCIAL CORRESPONDENT affecting medications have been discontinued, including BuSpar and Risperdal. Urine tox screen negative. Possible toxic encephalopathy. Herpetic encephalitis was entertained but has been ruled out. Antivirals have been discontinued. All cultures negative. Antibiotics have been discontinued. Low likelihood of illicit drug use at the present causing the mental status changes as this would have resolved by now (2) Atrial fibrillation with rapid ventricular response: Plan: Metoprolol was uptitrated today, August 14. He has converted to normal sinus rhythm. We will continue Lovenox 1 mg/kg subcutaneously every 12 hours due to paroxysmal atrial fibrillation and a new diagnosis of pulmonary embolism. He w ill eventually be switched to Eliquis. Cardiac echo reveals normal ejection fraction. Cardiology consultation appreciated. Telemetry (3) COPD (chronic obstructive pulmonary disease): Plan: Stable. Nebulizer treatments (4) Bipolar 1 disorder: Plan: Stable. Supportive care. BuSpar and Risperdal have been discontinued due to lethargy (5) Human herpesvirus 6 encephalitis: Plan: Ruled out (6) Pulmonary embolism: Plan: Acute PE involving all right lung segments noted on chest CTA today, August 13. He is on Lovenox 1 mg/kg subcutaneously every 12 hours. Eventual switch over to Eliquis or Xarelto. Plan Eventual return to nursing home, [facility]. Hopefully this coming week Admission and Anticipated Discharge Date Admission Date: August 10, 2022 Subjective Awake but continued lethargy. BuSpar and Risperdal have been discontinued. He continues to require oxygen supplementation. D-dimer is markedly elevated. Chest CTA was obtained and there is evidence of multilobar right pulmonary emboli. He is already on Lovenox 1 mg/kg subcutaneously every 12 hours due to new onset atrial fibrillation. He converted to normal sinus rhythm earlier today. Metoprolol was uptitrated today, August 13. Potassium 3.5. Oral supplement ordered. Physical therapy ordered. Thyroid panel is normal. Review of Systems Review of Systems: Constitutional-no fever or chills ENT-no blurred vision, no double vision, no epistaxis, no sore throat Respiratory-no cough, no wheezing, no shortness of breath Cardiac-no palpitations, no chest pain, no syncope GI-no nausea, vomiting, diarrhea, melena, hematochezia -no urinary retention, no urinary incontinence, no dysuria, no hematuria Musculoskeletal-no joint pain, no muscle tenderness Skin-no bruising, no rashes, no pruritus Neuro-no isolated weakness, no paresthesia, no weakness Psych-no depression, no anxiety Physical Exam Physical Exam: General-alert but somewhat lethargic. Oriented x2 HEENT-head atraumatic and normocephalic, pupils equal and reactive to light, extraocular muscles intact Neck-no lymphadenopathy or thyromegaly, trachea midline Chest-clear to auscultation percussion. No rales, wheezing or rhonchi Cardiac-irregular rhythm at the time of my examination earlier today. Normal S1 and S2 Abdomen-normal bowel sounds, nontender, no hepatosplenomegaly Extremities-no cyanosis, clubbing, or edema Neuro-cranial nerves II through XII intact, motor and sensory function within normal limits, strength symmetrical , no focal deficits Psych-flat affect. Lethargic Results & Data Results & Data Vital Signs (Past 12 Hours) Vital Signs Temp Pulse Pulse Pulse Resp BP BP 08/13/22 15:00 73 08/13/22 11:07 37.3 C 96 H 18 103/71 08/13/22 10:59 117 H 102/70 08/13/22 08:00 98 H 08/13/22 08:00 08/13/22 09:10 116 H 118/85 08/13/22 07:00 37.2 C 92 H 20 08/13/22 05:27 140 H 103/71 08/13/22 05:12 135 H 100/68 08/13/22 05:33 135 H 103/71 08/13/22 04:50 146 H 86/52 L 08/13/22 03:33 37.1 C 71 18 157/81 H BP Pulse Ox O2 Del Method O2 Flow Rate 08/13/22 15:00 08/13/22 11:07 96 Nasal Cannula 2 08/13/22 10:59 08/13/22 08:00 08/13/22 08:00 Nasal Cannula 2 08/13/22 09:10 08/13/22 07:00 97/68 L 96 Nasal Cannula 2 08/13/22 05:27 08/13/22 05:12 08/13/22 05:33 08/13/22 04:50 08/13/22 03:33 94 Nasal Cannula 2 Laboratory Results 08/13/22 05:54 08/13/22 05:54 PG Care Time/CCT Total # of Minutes Spent Total Time Spent with Patient: Total time spent is greater than 50% in coordination of care (as documented) at patient's floor/unit and/or counseling patient: Coding Level of Care Code 76113 SUB INP/OBS CARE 3/50MIN Diagnoses Altered mental status R41.82 Altered mental status type: unspecified Atrial fibrillation with rapid ventricular response I48.91 COPD (chronic obstructive pulmonary disease) J44.9 Bipolar 1 disorder F31.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
[2022-08-13] MEDS: METOPROLOL TARTRATE 50 MG TAB PO SCH (19:20)
[2022-08-13] MEDS: FLUTICASONE/VILANTEROL 100/25MCG 14 PUFFS/INHALER INH SCH (19:22)
[2022-08-14 06:47] LABS: Basophils # (auto) 0.05 K/uL (0-0.2); Basophils % (auto) 0.9 %; Eosinophils # (auto) 0.23 K/uL (0-0.50); Eosinophils % (auto) 4.1 %; Hemoglobin 12.1 g/dl (14.0-18.0); Immature Granulocytes # (auto) 0.02 K/uL (0.01-0.20); Immature Granulocytes % (auto) 0.4 %; Lymphocytes # (auto) 1.75 K/uL (1.2-3.4); Lymphocytes % (auto) 30.9 %; Mean Corpuscular Hemoglobin 32.6 pg (25.0-34.0); Mean Corpuscular Hgb Conc 34.6 g/dL (32.0-36.0); Mean Corpuscular Volume 94.3 fL (80.0-100.0); Mean Platelet Volume 8.3 fL (9.4-12.4); Monocytes # (auto) 0.52 K/uL (0.11-0.59); Monocytes % (auto) 9.2 %; Neutrophils % (auto) 54.5 %; Platelet Count 225 K/uL (130-400); RDW Coefficient of Variation 12.1 % (11.5-14.5); RDW Standard Deviation 42.3 fL (36.4-46.3); Red Blood Count 3.71 M/uL (4.70-6.10); White Blood Count 5.67 K/ul (4.8-10.8)
[2022-08-14 07:03] LABS: Albumin Globulin Ratio 1.2 (0.9-2); Albumin Level 3.2 gm/dl (3.4-5.0); BUN Creatinine Ratio 10.3 (10-20); Bilirubin,Total 0.5 mg/dl (0.2-1.0); Calcium 8.7 mg/dl (8.6-10.3); Creatinine Clr Calc Pharmacy 107.2 ml/min; Est GFR (African American) 120.3 ml/min; Est GFR (Non-African American) 103.8 ml/min; Globulin 2.6 gm/dl (2.5-4.0); Magnesium 2.1 mg/dl (1.7-2.4); Potassium 3.8 mmol/L (3.5-5.1); Total Protein 5.8 gm/dl (6.0-8.3)
[2022-08-14 07:24] LABS: Prothrombin Time 11.4 Seconds (9.0-12.0)
[2022-08-14] MEDS: METOPROLOL TARTRATE 50 MG TAB PO SCH ×2 (09:29→21:08)
[2022-08-14] MEDS: MAGNESIUM OXIDE 400 MG TAB PO SCH (09:29)
[2022-08-14] MEDS: ENOXAPARIN 80 MG/0.8 ML SYR SQ SCH (09:29)
[2022-08-14] MEDS: LITHIUM CARBONATE 300 MG TAB PO SCH ×2 (09:29→21:07)
--- NOTE | 2022-08-14 11:59 | Infectious Disease Progress Nt ---
Date of Service August 14, 2022 Assessment & Plan (1) Altered mental status: (2) Leukocytosis: Plan Micro: 08/10 MRSA nares: negative 08/10 RPR nonreactive 08/10 Lyme screen: negative 08/10 HIV screen: negative 08/10 CSF Routine cx:Sterile. GS--no organisms Fungal cx: NGTD AFB smear neg, cx: NGTD Lyme PCR: pending VDRL: pending Lyme IgG, IgM: pending West Nile PCR: pending EBV PCR: pending Biofire: HHV 6 detected 08/10 BCx x2: NGTD Abx: Ganciclovir 08/10 - 08/12 Vanc 08/10 - 08/12 Cefepime 08/10 - 08/12 Ceftriaxone 08/10 Problems: #Encephalopathy: improved #Leukocytosis: resolved #Hypercapnic respiratory failure: likely 2/2 encephalopathy s/p intubation 08/10. Extubated 08/11 AM. # Pulmonary Embolism 52 yo M inmate of [facility] with history of bipolar 1 disorder, alcohol abuse, amphetamine abuse, previous suicide attempts, COPD who presented on 08/10 after being found unresponsive in his cell, admitted with encephalopathy of unknown etiology. On presentation to the ED, HR 142, 96% on 4 L NC. Pt was unresponsive with upper extremity tremors and possible decorticate posturing with sternal rubbing. He was noted to be in afib with RVR. He was intubated due to his cognitive state. Labs showed WBC 14.5 (89% neutrophils), normal lactate 1.2, normal LFTs, procalcitonin < 0.05, CRP 1.06. UA negative. Utox negative. SARS-CoV-[address] head and CTA head/neck without acute findings. CXR showed lungs were clear. Pt was started on diltiazem drip and given a dose of ceftriaxone, loaded with Keppra. Neurology was consulted. EEG showed no evidence of epileptiform activity, so recommended discontinuation of Keppra. A lumbar puncture was performed, which showed 0 WBCs, 181 RBCs, glucose 92, protein 39.4. Additional CSF studies including Lyme PCR and antibodies, VDRL, West Nile PCR, EBV PCR were sent and are pending. CSF Biofire detected HHV6. HIV screen and Lyme serology screen negative.. 08/10 TTE was technically difficult, showed normal EF, small pericardial effusion. ID was consulted given findings of HHV-6 on CSF biofire. Unknown etiology of encephalopathy at this time. HHV-6 can be detected at high levels in PCR testing due to chromosomal integration, leading to a lifelong high viral load/PCR. This is estimated to occur in 1-2% of the population. Therefore, the positive predictive value is low and this may not represent true infection. In adults, HHV-6 encephalitis tends to occur due to reactivation in immunocompromised patients (ie HSCT patients). Pt does not have a known history of immunocompromise, although HIV screen is pending. Would expect to see elevated CSF WBCs (not seen here) and involvement of temporal lobe on MRI in HHV-6 encephalitis. MRI brain showed no acute abnormality, no evidence of acute infarct. He has rapidly improved and was extubated on 08/11 AM, and is drowsy but answering questions. CTA lung done on 08/13 in setting of elevated DDimer notable for PE. CXR shows increasing bibasilar airspace opacities. This may represent atelectasis or aspiration pneumonia/aspiration pneumonitis. Less likely pneumonia : he is w/o respiratory symptoms. He remains afebrile with normalization of WBC since discontinuation of antibiotics . 48 hours ago. Procalcitonin is <0.05. He is still requiring supplemental 02 however. Recommendations: -Follow-up pending CSF studies, blood cultures, West Nile IgM, serum HHV-6 PCR -Given thpt's rapid improvement, normal CSF WBC, and normal MRI, It is unlikely that the pt has HHV-6 encephalitis. As discussed above, the positive HHV-6 result in the PCR panel could represent chromosomal integration. : HHV-6 PCR from the blood was sent out. Add on to Csf was attempted but unsuccessful. 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 Gancivlocir discontinued after dose on 08/11. His mental status continues to improve slowly. -Vancomycin and Cefepime discontinued after last dose on 08/11. No evidence of bacterial infection at this time -PE management per primary team -Wean off o2 per primary team - Consider R femoral line removal if no longer needed. Monitor off antibiotics/ antivirals ID will sign off. Please notify if he develops fevers,WBc increases or pending cultures/studies positive. Virginia Montemayor MD, MPH Infectious Disease [facility], [facility] Call [phone] with questions Admission and Anticipated Discharge Date Admission Date: August 10, 2022 Subjective Subsequent visit was provided via telemedicine using two-way real-time interactive telecommunication between the patient and the telemedicine provider. For the duration of the visit, the provider was performing the assessment from a different facility than the patient. This includesuse of bluetooth stethoscope forauscultationperformed by the telepresenter that the telemedicine provider can hear if described in the physical exam. Equities Trader contact information: Please call [facility] Call Center . (Phone Number For Physician Use Only) After establishing a telemedicine visit, patient was: Patient was verified with two unique identifiers and Patient/authorized rep acknowledged consent and understanding Time Spent with Patient: Subsequent => 25 min Patient seen and examed. He opens eyes, is drowsy. When asked if he is in pain, he says " everywhere". He is unable to give further history given mental status. HIV and Lyme testing negative. BC sterile to date Afebrile. Ganciclovir and abx were discontinued over the weekend Pulmonary emboli noted on CTA lung Review of System Unable to obtain as he is lethargic. Physical Exam Constitutional: Lethargic, NAD, NC in place Eyes: Anicteric sclera, no injected conjunctiva, PERRLA, EOMI ENMT: No oral lesion. Lips and mucous membranes dry Neck: Supple Respiratory: No increased work of breathing Chest (Breasts): Additional Comments: No chest wall tenderness Gastrointestinal (Abdomen): Soft, not tender, not distended Musculoskeletal: Moves all extremities; L ankle cuffed to bed, Skin: Significant dandruff on head R femoral line in place Neurologic: Lethargic Genitourinary: Ascencio in place with clear yellow urine Results & Data Vital Signs (Past 12 Hours) Vital Signs Temp Pulse Resp BP Pulse Ox O2 Del Method 08/14/22 07:26 36.8 C 66 18 102/71 93 Room Air 08/14/22 03:00 36.6 C 67 20 104/69 92 Room Air Laboratory Results Laboratory Results - last 48 hr 08/13/22 08/13/22 08/13/22 05:54 05:54 05:54 WBC 8.16 RBC 3.72 L Hgb 12.2 L Hct 35.4 L MCV 95.2 MCH 32.8 MCHC 34.5 RDW Std Deviation 41.8 RDW Coeff of Franco 11.9 Plt Count 230 MPV 8.6 L Immature Gran % (Auto) 0.5 Neut % (Auto) 63.9 Lymph % (Auto) 23.7 [place] % (Auto) 8.8 Eos % (Auto) 2.6 Baso % (Auto) 0.5 Neut # (Auto) 5.22 Lymph # (Auto) 1.93 [place] # (Auto) 0.72 H Eos # (Auto) 0.21 Baso # (Auto) 0.04 Immature Gran # (Auto) 0.04 PT 11.5 INR 1.1 D-Dimer Sodium 141 Potassium 3.5 Chloride 110 H Carbon Dioxide 25 Anion Gap 6 BUN 11 Creatinine 0.75 Est Cr Clr Drug Dosing 111.5 Est GFR ( Amer) 122.2 Est GFR (Non-Af Amer) 105.5 BUN/Creatinine Ratio 14.7 Glucose 112 H Calcium 8.4 L Phosphorus 3.0 Magnesium 1.9 Total Bilirubin 0.5 AST 8 L ALT 7 Alkaline Phosphatase 50 Total Protein 5.6 L Albumin 3.2 L Globulin 2.4 L Albumin/Globulin Ratio 1.3 08/13/22 08/14/22 08/14/22 10:18 06:26 06:26 WBC 5.67 RBC 3.71 L Hgb 12.1 L Hct 35.0 L MCV 94.3 MCH 32.6 MCHC 34.6 RDW Std Deviation 42.3 RDW Coeff of Franco 12.1 Plt Count 225 MPV 8.3 L Immature Gran % (Auto) 0.4 Neut % (Auto) 54.5 Lymph % (Auto) 30.9 [place] % (Auto) 9.2 Eos % (Auto) 4.1 Baso % (Auto) 0.9 Neut # (Auto) 3.10 Lymph # (Auto) 1.75 [place] # (Auto) 0.52 Eos # (Auto) 0.23 Baso # (Auto) 0.05 Immature Gran # (Auto) 0.02 PT 11.4 INR 1.0 D-Dimer 2380 H* Sodium Potassium Chloride Carbon Dioxide Anion Gap BUN Creatinine Est Cr Clr Drug Dosing Est GFR ( Amer) Est GFR (Non-Af Amer) BUN/Creatinine Ratio Glucose Calcium Phosphorus Magnesium Total Bilirubin AST ALT Alkaline Phosphatase Total Protein Albumin Globulin Albumin/Globulin Ratio 08/14/22 06:26 WBC RBC Hgb Hct MCV MCH MCHC RDW Std Deviation RDW Coeff of Franco Plt Count MPV Immature Gran % (Auto) Neut % (Auto) Lymph % (Auto) [place] % (Auto) Eos % (Auto) Baso % (Auto) Neut # (Auto) Lymph # (Auto) [place] # (Auto) Eos # (Auto) Baso # (Auto) Immature Gran # (Auto) PT INR D-Dimer Sodium 140 Potassium 3.8 Chloride 109 H Carbon Dioxide 28 Anion Gap 3 BUN 8 Creatinine 0.78 Est Cr Clr Drug Dosing 107.2 Est GFR ( Amer) 120.3 Est GFR (Non-Af Amer) 103.8 BUN/Creatinine Ratio 10.3 Glucose 103 H Calcium 8.7 Phosphorus Magnesium 2.1 Total Bilirubin 0.5 AST 12 L ALT 10 Alkaline Phosphatase 49 Total Protein 5.8 L Albumin 3.2 L Globulin 2.6 Albumin/Globulin Ratio 1.2 Diagnostic Findings Microbiology 08/10/22 12:45 Cerebral Spinal Fluid Fungal Culture - Preliminary No yeast or fungus isolated - Report 1, Additional Report to Follow. 08/10/22 12:45 Cerebral Spinal Fluid Gram Stain - Final 08/10/22 12:45 Cerebral Spinal Fluid CSF Culture - Final No growth 08/10/22 09:01 Blood Aerobic Blood Culture - Preliminary No growth in Aerobic bottle after 48 hours. 08/10/22 09:01 Blood Anaerobic Blood Culture - Preliminary No growth in Anaerobic bottle after 48 hours. 08/10/22 09:01 Blood Aerobic Blood Culture - Preliminary No growth in Aerobic bottle after 48 hours. 08/10/22 09:01 Blood Anaerobic Blood Culture - Final 08/10/22 12:45 Cerebral Spinal Fluid Acid Fast Bacilli Smear - Final Chest X-Ray 08/13/22 10:09 SINGLE VIEW CHEST CLINICAL HISTORY: Hypoxia. FINDINGS: An AP, portable, upright chest radiograph is compared to study dated 08/10/2022. An endotracheal tube has been removed. The cardiomediastinal silhouette is top normal for projection. There are increasing bibasilar airspace opacities. No large pleural effusion or pneumothorax is seen. The bony thorax is grossly intact. IMPRESSION: 1. An endotracheal tube has been removed. 2. There are increasing bibasilar airspace opacities. This could represent atelectasis and/or pneumonia/aspiration pneumonitis. Clinical correlation will be required and radiographic follow-up to resolution is recommended. ACT 112: Negative or not required by law. Electronically signed by: Rufino Young M.D. 08/13/2022 10:41 AM Chest CTA 08/13/22 11:35 CT ANGIOGRAM OF THE CHEST CLINICAL HISTORY: Hypoxia. Elevated d-dimer. COMPARISON STUDY: Chest x-ray dated 08/13/2022. TECHNIQUE: Following the IV administration of 120 cc of Optiray 320, CT angiogram of the chest was performed from the upper abdomen to the thoracic inlet utilizing the pulmonary embolus protocol. Images are reviewed in the axial, sagittal, and coronal planes. 3-D MIPS images are created and assessed. IV contrast was administered without complication. A dose lowering technique was utilized adhering to the principles of ALARA. The examination is compromised by motion artifact. CT DOSE: 647.71 mGy.cm FINDINGS: Thyroid: Imaged portions of the thyroid gland are normal in size and attenuation. Thoracic aorta: The thoracic aorta is normal in caliber and demonstrates standard 3-vessel arch anatomy. No dissection is seen. Pulmonary vasculature: The pulmonary trunk is normal in caliber. There is thrombus within lobar branches of the right upper lobe pulmonary artery which extend into segmental and subsegmental branches. There are segmental and subsegmental pulmonary emboli within branches of the right middle lobe pulmonary artery. There are also likely small segmental and subsegmental pulmonary emboli within branches of both lower lobe pulmonary arteries. The lower lobe vessels are not well visualized due to significant motion artifact. Heart: The heart is top normal in size noting a small pericardial effusion. Lungs and pleural spaces: Evaluation of the lung parenchyma is degraded by motion artifact. Advanced emphysematous change is noted. The trachea and central airways appear clear. There are small pleural effusions with dependent consolidation. Mediastinum: There is no mediastinal lymphadenopathy. [place]: Clear. Axillae: There is no axillary lymphadenopathy. Upper abdomen: Partially visualized upper abdominal viscera is within normal limits. Skeletal structures: No lytic or blastic bony lesions are seen. IMPRESSION: 1. Pulmonary emboli as above. 2. Small pleural effusions with dependent consolidation. This could represent atelectasis versus pneumonia/aspiration and clinical correlation will be required. Radiographic follow-up to resolution is recommended. 3. Advanced emphysema. 4. Additional findings as above. ACT 112: Negative or not required by law. Electronically signed by: Rufino Young M.D. 08/13/2022 12:28 PM Medications Administered Home Medications Medication Instructions Recorded Confirmed Last Taken Wixela Inhub 1 puff inhalation BID 08/10/22 08/10/22 Unknown albuterol 90 mcg/actuation aerosol 2 mcg inhalation Q4H PRN Wheezing 08/10/22 08/10/22 Unknown inhaler buspirone 10 mg PO BID 08/10/22 08/10/22 Unknown lithium carbonate 450 mg PO BID 08/10/22 08/10/22 Unknown risperidone 4 mg PO HS 08/10/22 08/10/22 Unknown Active Medications Generic Name Dose Route Start Last Admin Trade Name Freq PRN Reason Stop Dose Admin Fluticasone/Vilanterol 1 puffs 08/11/22 21:00 08/13/22 19:22 Fluticasone/Vilanterol 100/25mcg 14 Puffs/Inhaler INH 09/10/22 20:59 1 puffs PM NIMISHA Administration Beltrami Carbonate 450 mg 08/10/22 21:00 08/14/22 09:29 Beltrami Carbonate 300 Mg Tab PO 09/09/22 20:59 450 mg BID NIMISHA Administration Magnesium Oxide 400 mg 08/11/22 16:18 08/14/22 09:29 Magnesium Oxide 400 Mg Tab PO 09/10/22 16:17 400 mg QAM NIMISHA Administration Metoprolol Tartrate 5 mg 08/11/22 17:22 08/13/22 05:33 Metoprolol Tartrate 1 Mg/Ml Vial IV 09/10/22 17:21 5 mg Q2H PRN Administration Sustained HR >110 Metoprolol Tartrate 50 mg 08/13/22 21:00 08/14/22 09:29 Metoprolol Tartrate 50 Mg Tab PO 09/12/22 20:59 50 mg BID NIMISHA Administration (1) Altered mental status Altered mental status type: unspecified Qualified Code(s): R41.82 - Altered mental status, unspecified (2) Leukocytosis Leukocytosis type: unspecified Qualified Code(s): D72.829 - Elevated white blood cell count, unspecified
[2022-08-14] MEDS: APIXABAN 5 MG TABLET PO SCH ×2 (12:58→21:07)
--- NOTE | 2022-08-14 13:08 | Neurology Progress Note ---
Date of Service August 14, 2022 Assessment & Plan (1) Unresponsive state: Patient's coma of unknown etiology has since resolved. On my evaluation he is perhaps mildly encephalopathic but baseline is not clear to me given his bipolar disorder. The patient otherwise feels he is at his neurologic baseline. Would co nsider that he is perhaps having side effects from the risperidone. Agree that it should be discontinued/temporarily held. Beyond ICU/hospital delirium otherwise, there are no objective physiologic changes noted on his extensive neurologic workup since admission. No focal deficits concerning for new stroke since admission/since his MRI. Can be discharged from our perspective. Subjective Telehealth Information I performed this visit using a real-time telehealth connection between my location and the patients location ([facility]). After connecting through interactive tele-video, patient was identified by name and date of and/or wristband check.Patient (or authorized healthcare small business sales representative) was informed that this was a telemedicine visit and it was being conducted confidentially over secure lines. My office door was closed and no one else was present in the room with me.Patient (or authorized healthcare small business sales representative) provided consent to proceed with the visit, expressed an understanding of privacy and security of the telemedicine visit, and gave permission to have a hospital small business sales representative in the room in order to assist with the visit and to conduct portions of the visit, as needed. I informed the patient (or authorized healthcare small business sales representative) that I reviewed their record and presented the opportunity for them to ask any questions regarding the visit today. The patient agreed to participate. Anupam Miller is a 52 yo M with bipolar I disorder, presented to [facility] 4 days ago with acute unresponsiveness in the setting of hypotension and afib. He was intubated but no cause was identified despite EEG, LP and MRI - all unremarkable given the context. Since extubation he has not been at his mental status baseline, however, the patient denies any confusion, new weakness, numbness, vision or speech changes. Other than the heart rate he has no complaints. He does not remember what happened to bring him to the hospital but denies any prior history of confusion or prolonged hospitalization. Review of Systems +rapid heart rate Physical Exam Neurological Examination: Mental Status: Awake and alert. Oriented to person, place, and time. Fluent, mildly dysarthric speech. Recall 1/5 at 5 minutes. Comprehension intact. Affect appropriate. Cranial Nerves: II: Reads NIHSS cards, pupils 3/3 to 2/2, merritt grossly intact. III/IV/: Versions intact without nystagmus, no gaze preference. V: Facial sensation symmetric to light touch VII: Facial expression symmetric VIII: Hearing intact to voice IX/X: Palate elevates symmetrically XI: Shoulder shrug symmetric XII: Tongue midline Motor: Strength was symmetric and antigravity throughout. Pronator drift was absent. There were no abnormal movements. Coordination: Movements were non-ataxic Reflexes: Unable to assess over telemedicine Results & Data Vital Signs (Past 12 Hours) Vital Signs Temp Pulse Pulse Resp BP Pulse Ox O2 Del Method 08/14/22 11:33 37.2 C 63 18 103/72 95 Nasal Cannula 08/14/22 08:00 Room Air 08/14/22 08:00 78 08/14/22 07:26 36.8 C 66 18 102/71 93 Room Air 08/14/22 03:00 36.6 C 67 20 104/69 92 Room Air Laboratory Results Abnormal lab results 08/14/22 08/14/22 Range/Units 06:26 06:26 RBC 3.71 L (4.70-6.10) M/uL Hgb 12.1 L (14.0-18.0) g/dl Hct 35.0 L (42.0-52.0) % MPV 8.3 L (9.4-12.4) fL Chloride 109 H (98-107) mmol/L Glucose 103 H (70-99(Fasting)) mg/dl AST 12 L (13-39) U/L Total Protein 5.8 L (6.0-8.3) gm/dl Albumin 3.2 L (3.4-5.0) gm/dl Diagnostic Findings MRI brain - Unremarkable
--- NOTE | 2022-08-14 14:50 | Hospitalist Progress Note ---
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 Urine tox screen negative. Infectious disease follow-up entry noted. No obvious infectious etiology at this time. Herpetic encephalitis was entertained but has been ruled out. Antivirals have been discontinued. All cultures negative. Antibiotics have been discontinued. Low likelihood of illicit drug use at the present causing the mental status changes as this would have resolved by now (2) Atrial fibrillation with rapid ventricular response: Plan: Metoprolol was uptitrated on August 14. He has converted to normal sinus rhythm. Lovenox has been switched to Eliquis. Cardiac echo reveals normal ejection fraction. Cardiology consultation appreciated. Telemetry (3) COPD (chronic obstructive pulmonary disease): Plan: Stable. Nebulizer treatments (4) Bipolar 1 disorder: Plan: Stable. Supportive care. BuSpar and Risperdal have been discontinued due to lethargy (5) Human herpesvirus 6 encephalitis: Plan: Ruled out (6) Pulmonary embolism: Plan: Acute PE involving all right lung segments noted on chest CTA done on August 13. Lovenox converted to Eliquis today, August 14. (7) Acute respiratory failure with hypoxia: Plan: Resolved. He is now on room air Plan Eventual return to [facility]. Hopefully this coming week Admission and Anticipated Discharge Date Admission Date: August 10, 2022 Subjective He remains encephalopathic but is arousable and oriented to name and place but f alls asleep easily. Uncertain etiology. Neurology evaluation requested. Infectious disease entry noted. Subcutaneous Lovenox has been switched over to Eliquis. He has converted to normal sinus rhythm Review of Systems Review of Systems: Constitutional-no fever or chills ENT-no blurred vision, no double vision, no epistaxis, no sore throat Respiratory-no cough, no wheezing, no shortness of breath Cardiac-no palpitations, no chest pain, no syncope GI-no nausea, vomiting, diarrhea, melena, hematochezia -no urinary retention, no urinary incontinence, no dysuria, no hematuria Musculoskeletal-no joint pain, no muscle tenderness Skin-no bruising, no rashes, no pruritus Neuro-no isolated weakness, no paresthesia, no weakness Psych-no depression, no anxiety Physical Exam Physical Exam: General-lethargic but arousable and oriented to name and place. Oriented x2 HEENT-head atraumatic and normocephalic, pupils equal and reactive to light, extraocular muscles intact Neck-no lymphadenopathy or thyromegaly, trachea midline Chest-clear to auscultation percussion. No rales, wheezing or rhonchi Cardiac-irregular rhythm at the time of my examination earlier today. Normal S1 and S2 Abdomen-normal bowel sounds, nontender, no hepatosplenomegaly Extremities-no cyanosis, clubbing, or edema Neuro-cranial nerves II through XII intact, motor and sensory function within normal limits, strength symmetrical , no focal deficits Psych-flat affect. Lethargic Results & Data Results & Data Vital Signs (Past 12 Hours) Vital Signs Temp Pulse Pulse Resp BP Pulse Ox O2 Del Method 08/14/22 11:33 37.2 C 63 18 103/72 95 Nasal Cannula 08/14/22 08:00 Room Air 08/14/22 08:00 78 08/14/22 07:26 36.8 C 66 18 102/71 93 Room Air 08/14/22 03:00 36.6 C 67 20 104/69 92 Room Air Laboratory Results 08/14/22 06:26 08/14/22 06:26 PG Care Time/CCT Total # of Minutes Spent Total Time Spent with Patient: Total time spent is greater than 50% in coordination of care (as documented) at patient's floor/unit and/or counseling patient: Coding Level of Care Code 05327 SUB INP/OBS CARE 3/50MIN Diagnoses Altered mental status R41.82 Altered mental status type: unspecified Atrial fibrillation with rapid ventricular response I48.91 COPD (chronic obstructive pulmonary disease) J44.9 Bipolar 1 disorder F31.9 Human herpesvirus 6 encephalitis B10.01 Pulmonary embolism I26.99 Acute respiratory failure with hypoxia J96.01 (1) Altered mental status Altered mental status type: unspecified Qualified Code(s): R41.82 - Altered mental status, unspecified
[2022-08-14] MEDS: FLUTICASONE/VILANTEROL 100/25MCG 14 PUFFS/INHALER INH SCH (21:07)
[2022-08-15 08:06] LABS: Basophils # (auto) 0.04 K/uL (0-0.2); Basophils % (auto) 0.6 %; Eosinophils # (auto) 0.22 K/uL (0-0.50); Eosinophils % (auto) 3.1 %; Hematocrit (blood only) 37.6 % (42.0-52.0); Immature Granulocytes # (auto) 0.04 K/uL (0.01-0.20); Immature Granulocytes % (auto) 0.6 %; Lymphocytes # (auto) 1.68 K/uL (1.2-3.4); Lymphocytes % (auto) 23.7 %; Mean Corpuscular Hemoglobin 32.3 pg (25.0-34.0); Mean Corpuscular Hgb Conc 34.6 g/dL (32.0-36.0); Mean Corpuscular Volume 93.5 fL (80.0-100.0); Mean Platelet Volume 8.2 fL (9.4-12.4); Monocytes # (auto) 0.59 K/uL (0.11-0.59); Monocytes % (auto) 8.3 %; Neutrophils # (auto) 4.53 K/uL (1.40-6.50); Neutrophils % (auto) 63.7 %; Platelet Count 224 K/uL (130-400); RDW Coefficient of Variation 11.9 % (11.5-14.5); RDW Standard Deviation 41.1 fL (36.4-46.3); Red Blood Count 4.02 M/uL (4.70-6.10)
[2022-08-15 08:17] LABS: Albumin Globulin Ratio 1.3 (0.9-2); Albumin Level 3.6 gm/dl (3.4-5.0); BUN Creatinine Ratio 17.4 (10-20); Bilirubin,Total 0.4 mg/dl (0.2-1.0); Calcium 9.1 mg/dl (8.6-10.3); Creatinine Clr Calc Pharmacy 121.2 ml/min; Est GFR (African American) 126.5 ml/min; Est GFR (Non-African American) 109.1 ml/min; Globulin 2.8 gm/dl (2.5-4.0); Magnesium 1.9 mg/dl (1.7-2.4); Potassium 3.9 mmol/L (3.5-5.1); Total Protein 6.4 gm/dl (6.0-8.3)
[2022-08-15 08:26] LABS: Prothrombin Time 11.2 Seconds (9.0-12.0)
[2022-08-15] MEDS ORDERED: APIXABAN 5 MG TABLET PO ONE (09:23)
[2022-08-15] MEDS: APIXABAN 5 MG TABLET PO SCH ×3 (09:25→21:14)
[2022-08-15] MEDS: LITHIUM CARBONATE 300 MG TAB PO SCH ×2 (09:46→21:16)
[2022-08-15] MEDS: MAGNESIUM OXIDE 400 MG TAB PO SCH (09:48)
[2022-08-15] MEDS: METOPROLOL TARTRATE 50 MG TAB PO SCH ×2 (09:49→21:15)
[2022-08-15 13:57] LABS: EBV DNA Quant PCR Not Detected copies/mL; EBV DNA Quant Source CSF
--- NOTE | 2022-08-15 15:00 | Ultrasound Report ---
BILATERAL LOWER EXTREMITY VENOUS DOPPLER CLINICAL HISTORY: acute PEs COMPARISON STUDY: No previous studies for comparison. TECHNIQUE: Sonography of the deep venous system of the bilateral lower extremities was performed. Co mpression and augmentation were evaluated. FINDINGS: There is deep venous thrombus within the right common femoral vein. No additional sites of deep venous thrombus within the right lower extremity are present. There is no deep venous thrombus within the left lower extremity. IMPRESSION: Deep venous thrombus within the right common femoral vein. ACT 112: Negative or not required by law. Electronically signed by: Jossue Bhardwaj M.D. 08/15/2022 2:59 PM
--- NOTE | 2022-08-15 19:27 | Hospitalist Progress Note ---
Date of Service August 15, 2022 Assessment & Plan (1) Acute encephalopathy: Plan: resolved exact etiology uncertain large work-up including LP, MRI brain, etc negative HHV-6 in CSF felt NOT to represent true infection/encephalitis/meningitis to be complete check ammonia and B12 in am tomorrow (2) Atrial fibrillation with rapid ventricular response: Plan: echo with normal ejection fraction and normal valve function. remains on metoprolol 50mg BID --> lower back to 25mg BID as his BPs are low- normal. now on eliquis but this is primarily to cover his RLE DVT/PEs. CHADsVASC score is quite low thus eliquis would not be recommended long-term. PAF may have been due to stress of illness and/or his acute PEs. (3) COPD (chronic obstructive pulmonary disease): Plan: stable, no flare at this time (4) Bipolar 1 disorder: Plan: BuSpar and Risperdal have been discontinued due to lethargy Remains on lithium and recent level acceptable (5) Human herpesvirus 6 encephalitis: Plan: Ruled out Per ID -- "HHV-6 can be detected at high levels in PCR testing due to chromosomal integration, leading to a lifelong high viral load/PCR. This is estimated to occur in 1-2% of the population." HHV-6 serum PCR returned negative today (6) Pulmonary embolism: Plan: Acute PE involving all right lung segments noted on chest CTA done on August 13. Lovenox converted to Eliquis -- 10mg BID x 7 days, then 5mg BID thereafter Etiology of DVT/PE?? underlying occult malignancy? other? he will need malignancy w/u in the near-future -- EGD, colonoscopy, prostate ca screening, etc will [facility] to the [facility] (7) Acute respiratory failure with hypoxia: Plan: resolving wean NC O2 to off as tolerated suspect 2nd to acute PEs (8) Right leg DVT: Plan: as seen on today's LE venous doppler Eliquis Plan d/c harshil repeat labs am likely d/c back to [facility] tomorrow Admission and Anticipated Discharge Date Admission Date: August 10, 2022 Subjective patient resting in bed comfortably he denies any complaints still requiring a little NC O2 no a.fib on monitoring overnight denies any recent weight loss no personal or family h/o VTE denies any recent surgery per guards he spends a lot of time in his cell, but otherwise ambulates normally he has never had EGD or colonoscopy Review of Systems Review of Systems: gen - no fevers, eating ok, no weight loss recently back at [facility] cv - no cp, no orthopnea pulm - no dyspnea at rest; minimal activity in room - but with such no dyspnea on exertion abd - no pain/nausea/emesis Physical Exam Physical Exam: gen - NAD mouth - MMM neck - no JVD heart - RRR, s1 s2, no murmur lungs - CTA b/l abd - soft NT ND BS+ ext - no edema, pulses 2+ b/l psych - a/o x 3; 3-word recall intact; no delirium Results & Data Results & Data Vital Signs (Past 12 Hours) Vital Signs Temp Pulse Pulse Resp BP BP Pulse Ox 08/15/22 16:00 37.0 C 64 18 109/73 95 08/15/22 15:53 72 08/15/22 12:00 36.5 C 58 L 18 119/81 96 08/15/22 08:11 76 08/15/22 08:01 36.7 C 67 18 111/79 95 O2 Del Method 08/15/22 16:00 Room Air 08/15/22 15:53 08/15/22 12:00 Room Air 08/15/22 08:11 08/15/22 08:01 Room Air Laboratory Results Laboratory Results - last 24 hr 08/10/22 08/10/22 08/10/22 12:45 12:45 18:01 WBC RBC Hgb Hct MCV MCH MCHC RDW Std Deviation RDW Coeff of Franco Plt Count MPV Immature Gran % (Auto) Neut % (Auto) Lymph % (Auto) Mccormick % (Auto) Eos % (Auto) Baso % (Auto) Neut # (Auto) Lymph # (Auto) Mccormick # (Auto) Eos # (Auto) Baso # (Auto) Immature Gran # (Auto) PT INR Sodium Potassium Chloride Carbon Dioxide Anion Gap BUN Creatinine Est Cr Clr Drug Dosing Est GFR ( Amer) Est GFR (Non-Af Amer) BUN/Creatinine Ratio Glucose Calcium Magnesium Total Bilirubin AST ALT Alkaline Phosphatase Total Creatine Kinase Total Protein Albumin Globulin Albumin/Globulin Ratio CSF VDRL Nonreactive Cryptococcus Source Cancelled Cryptococcal Ag (Latex) Cancelled EBV Source CSF EBV DNA, Quant Not Detected EBV DNA (PCR) Not Detected Miscellaneous Test REPORT Miscellaneous Test 2 Cancelled 08/15/22 08/15/22 08/15/22 07:40 07:40 07:40 WBC 7.10 RBC 4.02 L Hgb 13.0 L Hct 37.6 L MCV 93.5 MCH 32.3 MCHC 34.6 RDW Std Deviation 41.1 RDW Coeff of Franco 11.9 Plt Count 224 MPV 8.2 L Immature Gran % (Auto) 0.6 Neut % (Auto) 63.7 Lymph % (Auto) 23.7 Mccormick % (Auto) 8.3 Eos % (Auto) 3.1 Baso % (Auto) 0.6 Neut # (Auto) 4.53 Lymph # (Auto) 1.68 Mccormick # (Auto) 0.59 Eos # (Auto) 0.22 Baso # (Auto) 0.04 Immature Gran # (Auto) 0.04 PT 11.2 INR 1.0 Sodium 137 Potassium 3.9 Chloride 106 Carbon Dioxide 25 Anion Gap 6 BUN 12 Creatinine 0.69 Est Cr Clr Drug Dosing 121.2 Est GFR ( Amer) 126.5 Est GFR (Non-Af Amer) 109.1 BUN/Creatinine Ratio 17.4 Glucose 106 H Calcium 9.1 Magnesium 1.9 Total Bilirubin 0.4 AST 47 H ALT 41 Alkaline Phosphatase 53 Total Creatine Kinase 38 Total Protein 6.4 Albumin 3.6 Globulin 2.8 Albumin/Globulin Ratio 1.3 CSF VDRL Cryptococcus Source Cryptococcal Ag (Latex) EBV Source EBV DNA, Quant EBV DNA (PCR) Miscellaneous Test Miscellaneous Test 2 PG Care Time/CCT Total # of Minutes Spent Total Time Spent with Patient: Total time spent is greater than 50% in coordination of care (as documented) at patient's floor/unit and/or counseling patient: Coding Level of Care Code 34200 SUB INP/OBS CARE 2/35MIN Diagnoses Acute encephalopathy G93.40 Atrial fibrillation with rapid ventricular response I48.91 COPD (chronic obstructive pulmonary disease) J44.9 Bipolar 1 disorder F31.9 Human herpesvirus 6 encephalitis B10.01 Pulmonary embolism I26.99 Acute respiratory failure with hypoxia J96.01 Right leg DVT I82.401
[2022-08-15] MEDS: FLUTICASONE/VILANTEROL 100/25MCG 14 PUFFS/INHALER INH SCH (21:14)
[2022-08-16 07:35] LABS: BUN Creatinine Ratio 22.1 (10-20); Calcium 9.2 mg/dl (8.6-10.3); Creatinine Clr Calc Pharmacy 108.6 ml/min; Est GFR (African American) 120.9 ml/min; Est GFR (Non-African American) 104.3 ml/min
[2022-08-16] MEDS: LITHIUM CARBONATE 300 MG TAB PO SCH (08:29)
[2022-08-16] MEDS: MAGNESIUM OXIDE 400 MG TAB PO SCH (08:30)
[2022-08-16] MEDS: APIXABAN 5 MG TABLET PO SCH (08:32)
[2022-08-16] MEDS ORDERED: METOPROLOL TARTRATE 25 MG TAB PO SCH (09:00)
--- NOTE | 2022-08-16 12:05 | Discharge Summary ---
Date of Service August 16, 2022 Admission HPI Per Admitting Provider Anupam Miller is a 52 year old male inmate of [facility] with a PMH significant for Bipolar 1 Disorder, alcohol abuse, amphetamine abuse, previous suicide attempts, and COPD who presented to the [facility] ED on 08/10 via EMS after being found unresponsive in his cell this am. Per EMS report, the patient was having full body tremors at the time of their arrival. In the ED the patient was unresponsive with reported upper extremity tremors and possible decorticate posturing with sternal rubbing. He was noted to be in afib rvr with a HR in the 140s-160's and initial systolic BP in the 80's, but otherwise stable. He was subsequently intubated due to his cognitive state. Labs were significant for a leukocytosis of 14 with left shift of 12, ABG with a pH of 7.30, pCO2 of 49, and pO2 of 77, calcium of 8.1, clean UA, negative tox screen, lithium level of 0.4, prolactin level of 30, and covid [address] of the head and CTA of the head/neck were read as 1. No acute intracranial hemorrhage, evidence of acute territorial infarction, or other acute intracranial disease process. 2. No occlusion, hemodynamically significant stenosis, or dissection in the major cervical arteries.3. No occlusion, hemodynamically significant stenosis, aneurysm, dissection, or arteriovenous malformation in the major intracranial arteries. Chest xray post intubation was read as "Satisfactory position of endotracheal tube.". The patient was started on a diltiazem drip, given a dose of ceftriaxone, 1L NSS, and loaded with Keppra prior to admission. The ED staff spoke with the [facility] team who was comfortable with the patient staying with initial EEG monitoring. At the time of the exam the patient was lying in bed, intubated, and in no acute distress. The [facility] guards do not believe that he attempted suicide since arriving at [facility] in March of this year. Please refer to Dr. Shaw's attestation for any changes to the treatment plan Discharge Exam gen - NAD mouth - MMM neck - no JVD heart - RRR, s1 s2, no murmur lungs - CTA b/l abd - soft NT ND BS+ ext - no edema, pulses 2+ b/l psych - a/o x 3; 3-word recall intact; no delirium Discharge Data Allergies Allergy/AdvReac Type Severity Reaction Status Date / Time No Known Allergies Allergy Unverified 08/10/22 16:35 Consultations 08/10/22 09:51 ED Decision to Admit Stat 08/10/22 10:42 Consult Neurology Routine 08/10/22 12:14 Consult Dry Heat Cabinet Attendant Routine 08/10/22 15:57 Consult Infectious Diseases Routine 08/12/22 07:39 Consult Cardiology Routine 08/14/22 11:21 Consult Neurology Routine Ordered Studies 08/10/22 07:55 CT angio head w con Stat CT angio neck with con Stat CT head/brain wo con Stat 08/10/22 10:48 MRI Brain [MR brain wo con] Stat 08/13/22 11:35 CT for pulmonary embolism PE [CT angio chest PE protocol] Stat 08/15/22 09:23 US venous doppler LE BI Routine Hospital Course (1) Acute encephalopathy: resolved exact etiology uncertain large work-up including LP, MRI brain, etc negative HHV-6 in CSF felt NOT to represent true infection/encephalitis/meningitis to be complete check ammonia and B12 in am tomorrow (2) Atrial fibrillation with rapid ventricular response: echo with normal ejection fraction and normal valve function. remains on metoprolol 50mg BID --> lower back to 25mg BID as his BPs are low- normal. now on eliquis but this is primarily to cover his RLE DVT/PEs. CHADsVASC score is quite low thus eliquis would not be recommended long-term. PAF may have been due to stress of illness and/or his acute PEs. (3) COPD (chronic obstructive pulmonary disease): stable, no flare at this time (4) Bipolar 1 disorder: BuSpar and Risperdal have been discontinued due to lethargy Remains on lithium and recent level acceptable (5) Human herpesvirus 6 encephalitis: Ruled out Per ID -- "HHV-6 can be detected at high levels in PCR testing due to chromosomal integration, leading to a lifelong high viral load/PCR. This is estimated to occur in 1-2% of the population." HHV-6 serum PCR returned negative today (6) Pulmonary embolism: Acute PE involving all right lung segments noted on chest CTA done on August 13. Lovenox converted to Eliquis -- 10mg BID x 7 days, then 5mg BID thereafter Etiology of DVT/PE?? underlying occult malignancy? other? he will need malignancy w/u in the near-future -- EGD, colonoscopy, prostate ca screening, etc [facility] (7) Acute respiratory failure with hypoxia: resolving wean NC O2 to off as tolerated suspect 2nd to acute PEs (8) Right leg DVT: as seen on today's LE venous doppler Eliquis Plan d/c chua repeat labs am likely d/c back to [facility] tomorrow Discharge Plan Discharge Items Reason For Visit: UNRESPONSIVE Condition on Discharge: Serious Follow-up/Referrals: [facility] [Primary Care Provider] - Stand-Alone Forms: My [facility] Medications and DC Order Prescriptions: No Action albuterol 90 mcg/actuation Aerosol 2 mcg INHALATION Q4H PRN (Reason: Wheezing) Wixela Inhub 500 mcg 1 puff inhalation BID buspirone 10 mg 10 mg PO BID lithium carbonate 450 mg 450 mg PO BID risperidone 4 mg 4 mg PO HS Admission Data Admit Date/Time: 08/10/22 10:41 Attending Provider: Liborio Kulkarni Admit Provider: Liborio Shaw Primary Care Provider: [facility] Other Providers: Allen Willis ; Jorge Delagdillo ; Erin Wagner ; Niko Sarabia ; Michelle Nelson ; Ana Holman ; Cielo Sorensen ; Jo Ann Lindquist ; Leeanna Huitron ; Virginia Montemayor ; Jaky Ontiveros ; Brian Lugo ; Luis Sweeney ; Cong Ricks ; Hiren Haynes ; Brando Hernández ; Feliciano Villasenor Jr ; Benton Addison ; Rosalie James ; Jo Fry ; Mohsen Rangel ; Maninder Ren ; Ravindra Bustillo ; Amira Mckeon ; [place] ; George Soler ; Kendall Gunn ; Hiren Reinoso V. ; Jorge Aiken Coding Diagnoses Acute encephalopathy G93.40 Atrial fibrillation with rapid ventricular response I48.91 COPD (chronic obstructive pulmonary disease) J44.9 Bipolar 1 disorder F31.9 Human herpesvirus 6 encephalitis B10.01 Pulmonary embolism I26.99 Acute respiratory failure with hypoxia J96.01 Right leg DVT I82.401
[2022-08-16 12:47] LABS: Lyme DNA PCR CSF or Synovial Not Detected (Not Detected); Lyme DNA Source CSF
[2022-08-18 14:43] LABS: Lyme IgG Band Pattern CSF DNR; Lyme IgG CSF NO BANDS DETECTED; Lyme IgM Band Pattern CSF DNR; Lyme IgM CSF NO BANDS DETECTED; West Nile Virus, PCR Source CSF; West Nile Virus, PCR, CSF NOT DETECTED (NOT DETECTED)
== END 2022-08-16 15:28 | DRG 70 ==
LOC: ED 07:59 → SUATTDRO 10:41 → 1E 10:41 → 2S 08-12 18:05